=== PATIENT | female | born 1960 | race Caucasian/White ===

== ENCOUNTER → 2018-03-08 13:00 | Outpatient (CLI) | payer OTHER, SELFPAY ==
[2018-03-08 14:02] LABS: Absolute Lymphocyte Count 2.14 X10^3/ul (0.83-4.51); Absolute Neutrophil Count 4.9 X10^3/uL (2.0-7.7); Basophil# 0.02 X10^3/uL; Basophil% 0.3 % (0-1); Eosinophil# 0.12 X10^3/uL; Eosinophils% 1.5 % (0-5); Hematocrit 40.1 % (37-47); Hemoglobin 13.6 g/dl (12.0-15.0); Lymphocyte # 2.14 X10^3/ul (4.0); Lymphocyte % 27.5 % (19-41); Mean Corp Hgb Conc 33.9 g/gl (32-36); Mean Corpuscular Hgb 33.4 pg (27.0-32.0); Mean Corpuscular Volume 98.5 fL (81-99); Mean Platelet Vol. 13.4 fl (6.2-12.0); Monocyte# 0.63 X10^3/uL; Monocyte% 8.1 % (0-10); Neutrophil # 4.85 X10^3/uL (2.7-7.7); Neutrophil % 62.5 % (47-70); Platelet Count 187 K/mm3 (150-450); RBC Distribution Width CV 13.1 % (11.6-14.6); RBC Distribution Width SD 46.7 fl (35.1-43.9); Red Blood Count 4.07 M/mm3 (4.2-5.4); White Blood Count 7.8 K/mm3 (4.4-11.0)
[2018-03-08 14:08] LABS: POSITIVE COUNT NO; POSITIVE DIFFERENTIAL NO; POSITIVE MORPHOLOGY NO
[2018-03-08 14:33] LABS: AST(SGOT) 25 U/L (15-37); Alanine Aminotransfer ALT/SGPT 36 U/L (13-56); Albumin, Serum 3.8 g/dL (3.2-5.0); Alkaline Phosphatase 83 U/L (45-117); Anion Gap 6 (5-15); BUN 15 mg/dL (7-18); BUN/Creat Ratio 20.6 RATIO (10-20); Chloride 106 mmol/L (98-107); Creatinine, Serum 0.73 mg/dL (0.55-1.02); EST Glomerular Filtration Rate 87 mL/min (>60); Est Glom Filt Rate - Afr Amer 106 mL/min (>60); Globulin 3.9 g/dL (2.2-4.2); Glucose 92 mg/dL (74-106); Potassium 3.7 mmol/L (3.5-5.1); Protein, Total 7.7 g/dL (6.4-8.2); Sodium Level 138 mmol/L (136-145)
== END ==
PROVIDERS: Family Provider Family Medicine; PCP Family Medicine; Visit Provider Internal Medicine Rheumatology
DX: M06.4 Inflammatory polyarthropathy (principal); M32.9 Systemic lupus erythematosus, unspecified; M47.897 Other spondylosis, lumbosacral region; R76.8 Other specified abnormal immunological findings in serum
CPT/HCPCS: 36415; 80053; 85025

== ENCOUNTER → 2018-09-12 13:47 | Outpatient (CLI) | payer OTHER, SELFPAY ==
[2018-09-12 15:52] LABS: Absolute Lymphocyte Count 1.81 X10^3/ul (0.83-4.51); Absolute Neutrophil Count 4.9 X10^3/uL (2.0-7.7); Basophil# 0.01 X10^3/uL; Basophil% 0.1 % (0-1); Eosinophil# 0.07 X10^3/uL; Hematocrit 40.5 % (37-47); Hemoglobin 13.3 g/dl (12.0-15.0); Lymphocyte # 1.81 X10^3/ul (4.0); Lymphocyte % 24.9 % (19-41); Mean Corp Hgb Conc 32.8 g/gl (32-36); Mean Corpuscular Hgb 32.5 pg (27.0-32.0); Mean Platelet Vol. 14.3 fl (6.2-12.0); Monocyte# 0.47 X10^3/uL; Monocyte% 6.5 % (0-10); Neutrophil # 4.89 X10^3/uL (2.7-7.7); Neutrophil % 67.4 % (47-70); Platelet Count 173 K/mm3 (150-450); RBC Distribution Width CV 13.5 % (11.6-14.6); RBC Distribution Width SD 49.2 fl (35.1-43.9); Red Blood Count 4.09 M/mm3 (4.2-5.4); White Blood Count 7.3 K/mm3 (4.4-11.0)
[2018-09-12 15:53] LABS: Color, Urine Yellow (Yellow); Glucose, Dipstick Normal (Normal); Ketone-Dipstick Negative (Negative); Leukocyte Esterase-Dipstick 25 /ul (Negative); Nitrite-Dipstick Negative (Negative); Occult Blood-Urine Negative /ul (Negative); Protein-Dipstick Negative (Negative); Urine Bilirubin Dipstick Negative (Negative); Urine Clarity Clear (Clear); Urine Urobilinogen Normal (Normal)
[2018-09-12 16:05] LABS: ALB/GLOB Ratio 1.1 RATIO (0.9-2.4); AST(SGOT) 25 U/L (15-37); Alanine Aminotransfer ALT/SGPT 38 U/L (13-56); Alkaline Phosphatase 78 U/L (45-117); Anion Gap 8 (5-15); BUN 14 mg/dL (7-18); BUN/Creat Ratio 19.2 RATIO (10-20); Calcium,Total 8.9 mg/dL (8.5-10.1); Chloride 107 mmol/L (98-107); Creatinine, Serum 0.73 mg/dL (0.55-1.02); EST Glomerular Filtration Rate 87 mL/min (>60); Est Glom Filt Rate - Afr Amer 105 mL/min (>60); Globulin 3.6 g/dL (2.2-4.2); Glucose 89 mg/dL (74-106); POSITIVE COUNT NO; POSITIVE DIFFERENTIAL NO; POSITIVE MORPHOLOGY NO; Protein, Total 7.6 g/dL (6.4-8.2); Sodium Level 140 mmol/L (136-145)
[2018-09-12 16:11] LABS: Protein, Urine (Random) 9.7 mg/dL (<11.9); Protein:Creat Ratio 162 mg/g CRE (0-200)
[2018-09-16 11:54] LABS: Complement C3 122 mg/dL (82-167)
[2018-09-16 15:47] LABS: Anti-dsDNA Ab 1 IU/mL (0-9)
== END ==
PROVIDERS: Family Provider Family Medicine; PCP Family Medicine; Referring Provider Internal Medicine Rheumatology; Visit Provider Internal Medicine Rheumatology
DX: M06.4 Inflammatory polyarthropathy (principal); M32.9 Systemic lupus erythematosus, unspecified; M47.897 Other spondylosis, lumbosacral region; R76.8 Other specified abnormal immunological findings in serum
CPT/HCPCS: 36415; 80053; 81002; 82570; 84156; 85025; 86160; 86225

== ENCOUNTER → 2019-03-11 13:09 | Outpatient (CLI) | payer OTHER, SELFPAY ==
[2018-10-15 13:26] VITALS: BMI 23.8
[2019-03-11 15:16] LABS: Absolute Lymphocyte Count 1.75 X10^3/ul (0.83-4.51); Absolute Neutrophil Count 4.2 X10^3/uL (2.0-7.7); Basophil# 0.01 X10^3/uL; Basophil% 0.2 % (0-1); Eosinophil# 0.08 X10^3/uL; Eosinophils% 1.2 % (0-5); Hematocrit 39.9 % (37-47); Hemoglobin 13.5 g/dl (12.0-15.0); Lymphocyte # 1.75 X10^3/ul (4.0); Lymphocyte % 27.3 % (19-41); Mean Corp Hgb Conc 33.8 g/gl (32-36); Mean Corpuscular Hgb 33.1 pg (27.0-32.0); Mean Corpuscular Volume 97.8 fL (81-99); Mean Platelet Vol. 13.9 fl (6.2-12.0); Monocyte# 0.35 X10^3/uL; Monocyte% 5.5 % (0-10); Neutrophil # 4.22 X10^3/uL (2.7-7.7); Neutrophil % 65.6 % (47-70); Platelet Count 143 K/mm3 (150-450); RBC Distribution Width CV 13.4 % (11.6-14.6); Red Blood Count 4.08 M/mm3 (4.2-5.4); White Blood Count 6.4 K/mm3 (4.4-11.0)
[2019-03-11 15:18] LABS: POSITIVE COUNT NO; POSITIVE DIFFERENTIAL NO; POSITIVE MORPHOLOGY NO
[2019-03-11 15:51] LABS: ALB/GLOB Ratio 1.2 RATIO (0.9-2.4); AST(SGOT) 25 U/L (15-37); Alanine Aminotransfer ALT/SGPT 32 U/L (13-56); Albumin, Serum 3.9 g/dL (3.2-5.0); Alkaline Phosphatase 71 U/L (45-117); Anion Gap 7 (5-15); BUN 11 mg/dL (7-18); BUN/Creat Ratio 13.6 RATIO (10-20); Calcium,Total 8.9 mg/dL (8.5-10.1); Chloride 105 mmol/L (98-107); Creatinine, Serum 0.81 mg/dL (0.55-1.02); EST Glomerular Filtration Rate 77 mL/min (>60); Est Glom Filt Rate - Afr Amer 93 mL/min (>60); Globulin 3.2 g/dL (2.2-4.2); Glucose 146 mg/dL (74-106); Potassium 3.7 mmol/L (3.5-5.1); Protein, Total 7.1 g/dL (6.4-8.2); Sodium Level 141 mmol/L (136-145)
== END ==
PROVIDERS: Family Provider Family Medicine; PCP Family Medicine; Referring Provider Internal Medicine Rheumatology; Visit Provider Internal Medicine Rheumatology
DX: M06.4 Inflammatory polyarthropathy (principal); M32.9 Systemic lupus erythematosus, unspecified; M47.897 Other spondylosis, lumbosacral region; R76.8 Other specified abnormal immunological findings in serum
CPT/HCPCS: 36415; 80053; 85025

== ENCOUNTER → 2019-07-11 15:46 | Outpatient (CLI) | payer OTHER, SELFPAY ==
[2018-10-15 13:26] VITALS: BMI 23.8
--- NOTE | 2019-07-11 15:49 | CT_ITS ---
STUDY: LOW DOSE CT LUNG CANCER SCREENING REASON FOR EXAM: Female, 59 years old. Lung cancer screening CT RADIATION DOSAGE (If Supplied By Facility): CTDIvol = ( 1.7 ) mGy, DLP = ( 57.22 ) mGycm TECHNIQUE: No contrast was administered. Low dose technique was utilized (average mAS-38 and kVp 120). 1.25 mm axial source images with a slice interval of 1.25-mm were reconstructed in lung windows. 2.5 mm axial source images with a slice interval of 2.5-mm were reconstructed in lung windows. 5.0 mm axial source images with a slice interval of 5.0-mm were reconstructed in soft tissue windows. Nodule measured using lung windows on PACS and/or independent workstation with automated measurement of minimum and maximum diameter. Nodule measurement reported as average diameter rounded to the nearest whole number. Growth is defined as an increase ins size of greater than 1.5 mm. COMPARISON: None. Findings: There are no focal high-risk findings. There are scattered minimal scars/atelectasis. There is moderate emphysema. Mediastinal contents are normal. Cardiac chambers are normal in size and shape. Osseous structures are intact. CT/Low Dose CT Lung Screening IMPRESSION: 1. Category 1 screen. 2. Moderate emphysema. IMPORTANT NOTES FOR USE: ACR Lung-RADS Version 1.0 Assessment Categories Release Date: March 09, 2014 Category: Coded 0-4 bases on nodule(s) with highest degree of suspicion. Negative screen is defined as categories 1 and 2; a positive screen is defined as categories 3 and 4. Category 3 and 4A nodules that are unchanged on interval CT should be coded as category 2, and individuals returned to screening in 12 months. Category 4X: Category 3 or 4 nodules with additional imaging findings that increase the suspicion of lung cancer, such as spiculation, GGN that doubles in size in 1 year, enlarged lymph notes, etc. Category Modifiers: S (significant finding unrelated to lung cancer) and C (prior history of treated lung cancer) may be added to the 0-4 Lung-RADS Electronically Signed: Elizabeth Antoine, at 16:19 EDT Tel , Service support ,
== END ==
PROVIDERS: Family Provider Family Medicine; PCP Family Medicine; Referring Provider Family Medicine; Visit Provider Family Medicine
DX: Z12.2 Encounter for screening for malignant neoplasm of respiratory organs (principal)
CPT/HCPCS: G0297

== ENCOUNTER → 2019-09-10 10:22 | Outpatient (CLI) | payer OTHER, SELFPAY ==
[2018-10-15 13:26] VITALS: BMI 23.8
[2019-09-10 12:29] LABS: Absolute Lymphocyte Count 1.68 X10^3/uL (0.83-4.51); Absolute Neutrophil Count 4.6 X10^3/uL (2.0-7.7); Basophil# 0.02 X10^3/uL; Basophil% 0.3 % (0-1); Eosinophil# 0.07 X10^3/uL; Hematocrit 40.7 % (37-47); Hemoglobin 13.3 g/dL (12.0-15.0); Lymphocyte # 1.68 X10^3/ul (4.0); Lymphocyte % 24.3 % (19-41); Mean Corp Hgb Conc 32.7 g/dL (32-36); Mean Corpuscular Hgb 32.9 pg (27.0-32.0); Mean Corpuscular Volume 100.7 fL (81-99); Mean Platelet Vol. 14.3 fl (6.2-12.0); Monocyte# 0.52 X10^3/uL; Monocyte% 7.5 % (0-10); NRBC Flagged by Analyzer 0 % (0-5); Neutrophil # 4.59 X10^3/uL (2.7-7.7); Neutrophil % 66.5 % (47-70); Platelet Count 169 K/mm3 (150-450); RBC Distribution Width CV 13.2 % (11.6-14.6); RBC Distribution Width SD 49.4 fl (35.1-43.9); Red Blood Count 4.04 M/mm3 (4.2-5.4); White Blood Count 6.9 K/mm3 (4.4-11.0)
[2019-09-10 12:41] LABS: ALB/GLOB Ratio 1.1 RATIO (0.9-2.4); AST(SGOT) 22 U/L (15-37); Alanine Aminotransfer ALT/SGPT 32 U/L (13-56); Albumin, Serum 3.9 g/dL (3.2-5.0); Alkaline Phosphatase 104 U/L (45-117); Anion Gap 5 (5-15); BUN 15 mg/dL (7-18); BUN/Creat Ratio 19.5 RATIO (10-20); Chloride 108 mmol/L (98-107); Color, Urine Yellow (Yellow); Creatinine, Serum 0.77 mg/dL (0.55-1.02); EST Glomerular Filtration Rate 81 mL/min (>60); Est Glom Filt Rate - Afr Amer 98 mL/min (>60); Globulin 3.5 g/dL (2.2-4.2); Glucose 108 mg/dL (74-106); Glucose, Dipstick Normal (Normal); Ketone-Dipstick Negative (Negative); Leukocyte Esterase-Dipstick Negative /ul (Negative); Nitrite-Dipstick Negative (Negative); Occult Blood-Urine Negative /ul (Negative); Protein, Total 7.4 g/dL (6.4-8.2); Protein-Dipstick Negative (Negative); Sodium Level 141 mmol/L (136-145); Specific Gravity, Urine 1.015 (1.002-1.030); Urine Bilirubin Dipstick Negative (Negative); Urine Clarity Sl. Cloudy (Clear); Urine Urobilinogen Normal (Normal)
[2019-09-10 12:57] LABS: Protein:Creat Ratio 293 mg/g CRE (0-200)
[2019-09-10 13:18] LABS: Platelet Morphology LARGE
[2019-09-11 15:26] LABS: Complement C3 100 mg/dL (82-167)
[2019-09-11 21:25] LABS: Anti-dsDNA Ab <1 IU/mL (0-9)
== END ==
PROVIDERS: Family Provider Family Medicine; PCP Family Medicine; Referring Provider Internal Medicine Rheumatology; Visit Provider Internal Medicine Rheumatology
DX: M06.4 Inflammatory polyarthropathy (principal); M32.9 Systemic lupus erythematosus, unspecified; M18.0 Bilateral primary osteoarthritis of first carpometacarpal joints; M47.897 Other spondylosis, lumbosacral region; R76.8 Other specified abnormal immunological findings in serum
CPT/HCPCS: 36415; 80053; 81002; 82570; 84156; 85025; 86160; 86225

== ENCOUNTER → 2019-10-07 08:08 | Outpatient (CLI) | payer OTHER, SELFPAY ==
[2018-10-15 13:26] VITALS: BMI 23.8
--- NOTE | 2019-10-07 08:12 | RAD_ITS ---
STUDY: X-RAY - CERVICAL SPINE REASON FOR EXAM: Female, 59 years old. TECHNIQUE: 6 view(s) of the cervical spine were obtained. COMPARISON: None FINDINGS: Normal anterior atlantoaxial articulation. Normal odontoid process. Normal cervical lordosis. Normal vertebral bodies and endplates. There is marked narrowing involving the intervertebral disc between C5-6 and to a less extent the colon between C6-7. Significant spondylotic changes noted at C5-C6 with encroachment upon the neural foramina bilaterally this is also present at C6-7 but to a less extent. The soft tissue structures are unremarkable. The air column is patent. RAD/Cerv Spine 4 or 5 Views IMPRESSION: Degenerative disc disease narrowing and spondylotic changes at C5-6 and C6-7 as described Electronically Signed: Carol Ann Schmitt, at 16:19 EST Tel , Service support ,
[2019-10-07 10:44] LABS: Cholesterol 150 mg/dL (200); High Density Lipoprotein 76 mg/dL; Triglycerides 31 mg/dL; Very Low Density Lipoprotein 6 mg/dL (5-40)
== END ==
PROVIDERS: Family Provider Family Medicine; PCP Family Medicine; Referring Provider Family Medicine; Visit Provider Family Medicine
DX: Z00.01 Encounter for general adult medical examination with abnormal findings (principal); M47.812 Spondylosis without myelopathy or radiculopathy, cervical region; M32.9 Systemic lupus erythematosus, unspecified
CPT/HCPCS: 36415; 72050; 80061

== ENCOUNTER → 2019-10-07 08:25 | Outpatient (CLI) | payer OTHER, SELFPAY ==
[2018-10-15 13:26] VITALS: BMI 23.8
== END ==
PROVIDERS: Family Provider Family Medicine; PCP Family Medicine; Referring Provider Family Medicine; Visit Provider Family Medicine
DX: M47.812 Spondylosis without myelopathy or radiculopathy, cervical region (principal); M32.9 Systemic lupus erythematosus, unspecified
CPT/HCPCS: 72050

== ENCOUNTER → 2020-03-09 15:30 | Outpatient (CLI) | payer OTHER, SELFPAY ==
[2018-10-15 13:26] VITALS: BMI 23.8
[2020-03-09 17:35] LABS: Absolute Lymphocyte Count 2.68 X10^3/uL (0.83-4.51); Absolute Neutrophil Count 4.6 X10^3/uL (2.0-7.7); Basophil# 0.03 X10^3/uL; Basophil% 0.4 % (0-1); Eosinophils% 1.2 % (0-5); Hematocrit 39.5 % (37-47); Hemoglobin 13.1 g/dL (12.0-15.0); Lymphocyte # 2.68 X10^3/ul (4.0); Mean Corp Hgb Conc 33.2 g/dL (32-36); Mean Corpuscular Hgb 32.9 pg (27.0-32.0); Mean Corpuscular Volume 99.2 fL (81-99); Mean Platelet Vol. 14.6 fl (6.2-12.0); Monocyte# 0.66 X10^3/uL; Monocyte% 8.1 % (0-10); NRBC Flagged by Analyzer 0 % (0-5); Neutrophil # 4.64 X10^3/uL (2.7-7.7); Neutrophil % 57.1 % (47-70); Platelet Count 177 K/mm3 (150-450); RBC Distribution Width CV 12.8 % (11.6-14.6); RBC Distribution Width SD 46.5 fl (35.1-43.9); Red Blood Count 3.98 M/mm3 (4.2-5.4); White Blood Count 8.1 K/mm3 (4.4-11.0)
[2020-03-09 18:00] LABS: Color, Urine Yellow (Yellow); Glucose, Dipstick Normal (Normal); Ketone-Dipstick Negative (Negative); Leukocyte Esterase-Dipstick 25 /ul (Negative); Nitrite-Dipstick Negative (Negative); Occult Blood-Urine Negative /ul (Negative); Protein-Dipstick Negative (Negative); Specific Gravity, Urine 1.025 (1.002-1.030); Urine Bilirubin Dipstick Negative (Negative); Urine Clarity Clear (Clear); Urine Urobilinogen Normal (Normal)
[2020-03-09 18:09] LABS: Protein, Urine (Random) 20.9 mg/dL (<11.9); Protein:Creat Ratio 163 mg/g CRE (0-200)
[2020-03-09 18:12] LABS: ALB/GLOB Ratio 1.1 RATIO (0.9-2.4); AST(SGOT) 26 U/L (15-37); Alanine Aminotransfer ALT/SGPT 33 U/L (13-56); Alkaline Phosphatase 76 U/L (45-117); Anion Gap 4 (5-15); BUN 18 mg/dL (7-18); BUN/Creat Ratio 20.6 RATIO (10-20); Calcium,Total 9.2 mg/dL (8.5-10.1); Chloride 108 mmol/L (98-107); Creatinine, Serum 0.87 mg/dL (0.55-1.02); EST Glomerular Filtration Rate 70 mL/min (>60); Est Glom Filt Rate - Afr Amer 85 mL/min (>60); Globulin 3.5 g/dL (2.2-4.2); Glucose 82 mg/dL (74-106); Potassium 3.8 mmol/L (3.5-5.1); Protein, Total 7.5 g/dL (6.4-8.2); Sodium Level 139 mmol/L (136-145)
[2020-03-11 05:57] LABS: Complement C3 109 mg/dL (82-167)
[2020-03-11 17:02] LABS: Anti-dsDNA Ab <1 IU/mL (0-9)
== END ==
PROVIDERS: PCP Family Medicine; Referring Provider Internal Medicine Rheumatology; Visit Provider Internal Medicine Rheumatology
DX: M06.4 Inflammatory polyarthropathy (principal); M32.9 Systemic lupus erythematosus, unspecified; R76.8 Other specified abnormal immunological findings in serum; M18.0 Bilateral primary osteoarthritis of first carpometacarpal joints; M47.897 Other spondylosis, lumbosacral region
CPT/HCPCS: 36415; 80053; 81002; 82570; 84156; 85025; 86160; 86225

== ENCOUNTER → 2020-07-09 13:56 | Outpatient (CLI) | payer OTHER, SELFPAY ==
[2018-10-15 13:26] VITALS: BMI 23.8
--- NOTE | 2020-07-09 14:00 | CT_ITS ---
STUDY: LOW DOSE CT LUNG CANCER SCREENING REASON FOR EXAM: Female, 60 years old. Tobacco use, smoked 1 pack/day x 35 years, lupus, 125lbs. RADIATION DOSAGE (If Supplied By Facility): CTDIvol = ( 2.01 ) mGy, DLP = ( 74.74 ) mGycm TECHNIQUE: No contrast was administered. Low dose technique was utilized (average mAS-38 and kVp 120). 1.25 mm axial source images with a slice interval of 1.25-mm were reconstructed in lung windows. 2.5 mm axial source images with a slice interval of 2.5-mm were reconstructed in lung windows. 5.0 mm axial source images with a slice interval of 5.0-mm were reconstructed in soft tissue windows. Nodule measured using lung windows on PACS and/or independent workstation with automated measurement of minimum and maximum diameter. Nodule measurement reported as average diameter rounded to the nearest whole number. Growth is defined as an increase ins size of greater than 1.5 mm. COMPARISON: Comparison is made with prior examination dated 07/11/2019. NODULES: No suspicious nodules seen. Emphysema: No evidence of emphysema. Endobronchial lesion: None Aorta: Unremarkable Coronary arteries: Unremarkable Mediastinal nodes: No significant nodes are seen. Other chest and abdominal findings: CT/Low Dose CT Lung Screening IMPRESSION: Lung-RADS category 2 - Continue annual screening with LDCT in 12 months. IMPORTANT NOTES FOR USE: ACR Lung-RADS Version 1.0 Assessment Categories Release Date: March 09, 2014 Category: Coded 0-4 bases on nodule(s) with highest degree of suspicion. Negative screen is defined as categories 1 and 2; a positive screen is defined as categories 3 and 4. Category 3 and 4A nodules that are unchanged on interval CT should be coded as category 2, and individuals returned to screening in 12 months. Category 4X: Category 3 or 4 nodules with additional imaging findings that increase the suspicion of lung cancer, such as spiculation, GGN that doubles in size in 1 year, enlarged lymph notes, etc. Category Modifiers: S (significant finding unrelated to lung cancer) and C (prior history of treated lung cancer) may be added to the 0-4 Lung-RADS Electronically Signed: Jair Santacruz, at 15:20 EDT , Service support ,
== END ==
PROVIDERS: PCP Family Medicine; Referring Provider Family Medicine; Visit Provider Family Medicine
DX: Z12.2 Encounter for screening for malignant neoplasm of respiratory organs (principal); F17.210 Nicotine dependence, cigarettes, uncomplicated
CPT/HCPCS: G0297

== ENCOUNTER → 2020-08-31 16:47 | Outpatient (CLI) | payer OTHER, SELFPAY ==
[2018-10-15 13:26] VITALS: BMI 23.8
[2020-08-31 17:49] LABS: Absolute Lymphocyte Count 2.55 X10^3/uL (0.83-4.51); Basophil# 0.04 X10^3/uL; Basophil% 0.5 % (0-1); Eosinophil# 0.12 X10^3/uL; Eosinophils% 1.4 % (0-5); Hematocrit 40.5 % (37-47); Hemoglobin 13.3 g/dL (12.0-15.0); Lymphocyte # 2.55 X10^3/ul (4.0); Lymphocyte % 30.6 % (19-41); Mean Corp Hgb Conc 32.8 g/dL (32-36); Mean Corpuscular Hgb 33.2 pg (27.0-32.0); Mean Platelet Vol. 13.8 fl (6.2-12.0); Monocyte# 0.63 X10^3/uL; Monocyte% 7.6 % (0-10); NRBC Flagged by Analyzer 0 % (0-5); Neutrophil # 4.96 X10^3/uL (2.7-7.7); Neutrophil % 59.5 % (47-70); Platelet Count 167 K/mm3 (150-450); RBC Distribution Width CV 13.1 % (11.6-14.6); RBC Distribution Width SD 48.7 fl (35.1-43.9); Red Blood Count 4.01 M/mm3 (4.2-5.4); White Blood Count 8.3 K/mm3 (4.4-11.0)
[2020-08-31 18:20] LABS: ALB/GLOB Ratio 1.1 RATIO (0.9-2.4); AST(SGOT) 23 U/L (15-37); Alanine Aminotransfer ALT/SGPT 28 U/L (13-56); Albumin, Serum 3.9 g/dL (3.2-5.0); Alkaline Phosphatase 82 U/L (45-117); Anion Gap 4 (5-15); BUN 14 mg/dL (7-18); BUN/Creat Ratio 17.2 RATIO (10-20); Calcium,Total 9.2 mg/dL (8.5-10.1); Chloride 109 mmol/L (98-107); Creatinine, Serum 0.81 mg/dL (0.55-1.02); EST Glomerular Filtration Rate 76 mL/min (>60); Est Glom Filt Rate - Afr Amer 92 mL/min (>60); Globulin 3.7 g/dL (2.2-4.2); Glucose 79 mg/dL (74-106); Potassium 3.8 mmol/L (3.5-5.1); Protein, Total 7.6 g/dL (6.4-8.2); Sodium Level 141 mmol/L (136-145)
== END ==
PROVIDERS: PCP Family Medicine; Referring Provider Internal Medicine Rheumatology; Visit Provider Internal Medicine Rheumatology
DX: M06.4 Inflammatory polyarthropathy (principal); M32.9 Systemic lupus erythematosus, unspecified; R76.8 Other specified abnormal immunological findings in serum; M79.7 Fibromyalgia; M18.0 Bilateral primary osteoarthritis of first carpometacarpal joints; M47.897 Other spondylosis, lumbosacral region
CPT/HCPCS: 36415; 80053; 85025

== ENCOUNTER → 2021-02-24 17:55 | Outpatient (CLI) | payer OTHER, SELFPAY ==
[2021-02-24 16:58] VITALS: BMI 23.9
[2021-02-24 19:25] LABS: Probe Check PASS; Specimen Processing Control PASS
== END ==
PROVIDERS: PCP Family Medicine; Visit Provider Physician Assistant
DX: J06.9 Acute upper respiratory infection, unspecified (principal)
CPT/HCPCS: 87635; U0002

== ENCOUNTER → 2021-03-04 08:15 | Outpatient (CLI) | payer OTHER, SELFPAY ==
[2021-02-24 16:58] VITALS: BMI 23.9
[2021-03-04 10:26] LABS: Absolute Lymphocyte Count 1.49 X10^3/uL (0.83-4.51); Absolute Neutrophil Count 11.3 X10^3/uL (2.0-7.7); Basophil# 0.04 X10^3/uL; Basophil% 0.3 % (0-1); Eosinophil# 0.19 X10^3/uL; Eosinophils% 1.4 % (0-5); Hematocrit 41.9 % (37-47); Hemoglobin 13.8 g/dL (12.0-15.0); Lymphocyte # 1.49 X10^3/ul (0.83-4.51); Lymphocyte % 10.8 % (19-41); Mean Corp Hgb Conc 32.9 g/dL (32-36); Mean Corpuscular Hgb 33.4 pg (27.0-32.0); Mean Corpuscular Volume 101.5 fL (81-99); Mean Platelet Vol. 13.2 fl (6.2-12.0); Monocyte# 0.76 X10^3/uL; Monocyte% 5.5 % (0-10); NRBC Flagged by Analyzer 0 % (0-5); Neutrophil # 11.25 X10^3/uL (2.7-7.7); Neutrophil % 81.6 % (47-70); Platelet Count 206 K/mm3 (150-450); RBC Distribution Width CV 12.7 % (11.6-14.6); RBC Distribution Width SD 47.6 fl (35.1-43.9); Red Blood Count 4.13 M/mm3 (4.2-5.4); White Blood Count 13.8 K/mm3 (4.4-11.0)
[2021-03-04 10:30] LABS: Color, Urine Yellow (Yellow); Glucose, Dipstick Normal (Normal); Ketone-Dipstick 5 mg/dl (Negative); Leukocyte Esterase-Dipstick Negative /ul (Negative); Nitrite-Dipstick Negative (Negative); Occult Blood-Urine Negative /ul (Negative); Protein-Dipstick 15 mg/dl (Negative); Specific Gravity, Urine 1.025 (1.002-1.030); Urine Bilirubin Dipstick Negative (Negative); Urine Clarity Sl. Cloudy (Clear); Urine Urobilinogen Normal (Normal)
[2021-03-04 10:33] LABS: Protein, Urine (Random) 46.1 mg/dL (<11.9); Protein:Creat Ratio 274 mg/g CRE (0-200)
[2021-03-04 10:35] LABS: AST(SGOT) 21 U/L (15-37); Alanine Aminotransfer ALT/SGPT 36 U/L (13-56); Albumin, Serum 3.6 g/dL (3.2-5.0); Alkaline Phosphatase 111 U/L (45-117); Anion Gap 4 (5-15); BUN 16 mg/dL (7-18); BUN/Creat Ratio 20.6 RATIO (10-20); Calcium,Total 8.7 mg/dL (8.5-10.1); Chloride 109 mmol/L (98-107); Creatinine, Serum 0.78 mg/dL (0.55-1.02); EST Glomerular Filtration Rate 80 mL/min (>60); Est Glom Filt Rate - Afr Amer 97 mL/min (>60); Globulin 3.5 g/dL (2.2-4.2); Glucose 122 mg/dL (74-106); Protein, Total 7.1 g/dL (6.4-8.2); Sodium Level 141 mmol/L (136-145)
== END ==
PROVIDERS: PCP Family Medicine; Referring Provider Internal Medicine Rheumatology; Visit Provider Internal Medicine Rheumatology
DX: M06.4 Inflammatory polyarthropathy (principal); M32.9 Systemic lupus erythematosus, unspecified; R76.8 Other specified abnormal immunological findings in serum; M79.7 Fibromyalgia; M18.0 Bilateral primary osteoarthritis of first carpometacarpal joints; M47.897 Other spondylosis, lumbosacral region
CPT/HCPCS: 36415; 80053; 81002; 82570; 84156; 85025

== ENCOUNTER → 2021-08-03 15:50 | Outpatient (CLI) | payer OTHER, SELFPAY ==
--- NOTE | 2021-08-03 15:54 | CT_ITS ---
STUDY: LOW DOSE CT LUNG CANCER SCREENING REASON FOR EXAM: Female, 61 years old. Screening. RADIATION DOSAGE (If Supplied By Facility): CTDIvol = ( 2.01 ) mGy, DLP = ( 63.94 ) mGycm TECHNIQUE: No contrast was administered. Low dose technique was utilized (average mAS-38 and kVp 120). 1.25 mm axial source images with a slice interval of 1.25-mm were reconstructed in lung windows. 2.5 mm axial source images with a slice interval of 2.5-mm were reconstructed in lung windows. 5.0 mm axial source images with a slice interval of 5.0-mm were reconstructed in soft tissue windows. Nodule measured using lung windows on PACS and/or independent workstation with automated measurement of minimum and maximum diameter. Nodule measurement reported as average diameter rounded to the nearest whole number. Growth is defined as an increase ins size of greater than 1.5 mm. COMPARISON: 07/09/2020. NODULES: Nodule #: 1 Density: Solid Lung location: Left upper lobe: 1.7 cm from pleura Location in series: Series Number: 2 Image: 25 Size - D1 x D2 mm: 3 x 3 mm: 3 mm average diameter Margin: Smooth Shape: Round Calcification: Yes Fat: No Temporal comparison: Stable Total lung nodules (excluding granulomas): 0 Emphysema: There is mild emphysematous changes with scattered air cysts versus bullae. Endobronchial lesion: None Aorta: Mild stable atherosclerotic changes of the aortic arch. There is no aneurysm. Coronary arteries: Normal Heart: Normal Pulmonary artery: Normal Mediastinal nodes: None Other chest and abdominal findings: Stable degenerative changes of the thoracic spine. CT/Low Dose CT Lung Screening IMPRESSION: Lung-RADS category 1 - Continue annual screening with LDCT in 12 months. IMPORTANT NOTES FOR USE: ACR Lung-RADS Version 1.1 Assessment Categories Release Date: 2018 Category: Coded 0-4 bases on nodule(s) with highest degree of suspicion. Negative screen is defined as categories 1 and 2; a positive screen is defined as categories 3 and 4. Category 3 and 4A nodules that are unchanged on interval CT should be coded as category 2, and individuals returned to screening in 12 months. Category 4X: Category 3 or 4 nodules with additional imaging findings that increase the suspicion of lung cancer, such as spiculation, GGN that doubles in size in 1 year, enlarged lymph notes, etc. Category Modifiers: S (significant finding unrelated to lung cancer) Electronically Signed: Deep Bull DO at 16:56 EDT Tel [phone], Service support ,
== END ==
PROVIDERS: PCP Family Medicine; Referring Provider Family Medicine; Visit Provider Family Medicine
DX: Z12.2 Encounter for screening for malignant neoplasm of respiratory organs (principal)
CPT/HCPCS: 71271

== ENCOUNTER → 2021-08-26 14:26 | Outpatient (CLI) | payer OTHER, SELFPAY ==
[2021-08-26 17:18] LABS: Color, Urine Yellow (Yellow); Glucose, Dipstick Normal (Normal); Ketone-Dipstick Negative (Negative); Leukocyte Esterase-Dipstick Negative /ul (Negative); Nitrite-Dipstick Negative (Negative); Occult Blood-Urine Negative /ul (Negative); Protein-Dipstick Negative (Negative); Specific Gravity, Urine 1.025 (1.002-1.030); Urine Bilirubin Dipstick Negative (Negative); Urine Clarity Clear (Clear); Urine Urobilinogen Normal (Normal)
[2021-08-26 17:26] LABS: Absolute Lymphocyte Count 2.24 X10^3/uL (0.83-4.51); Basophil# 0.02 X10^3/uL; Basophil% 0.3 % (0-1); Eosinophil# 0.09 X10^3/uL; Eosinophils% 1.1 % (0-5); Hematocrit 40.2 % (37-47); Hemoglobin 13.4 g/dL (12.0-15.0); Lymphocyte # 2.24 X10^3/ul (0.83-4.51); Lymphocyte % 28.2 % (19-41); Mean Corp Hgb Conc 33.3 g/dL (32-36); Mean Corpuscular Hgb 33.3 pg (27.0-32.0); Mean Platelet Vol. 14.4 fl (6.2-12.0); Monocyte# 0.58 X10^3/uL; Monocyte% 7.3 % (0-10); NRBC Flagged by Analyzer 0 % (0-5); Neutrophil # 4.99 X10^3/uL (2.7-7.7); Neutrophil % 62.8 % (47-70); Platelet Count 175 K/mm3 (150-450); RBC Distribution Width SD 48.2 fl (35.1-43.9); Red Blood Count 4.02 M/mm3 (4.2-5.4); White Blood Count 7.9 K/mm3 (4.4-11.0)
[2021-08-26 17:28] LABS: Protein, Urine (Random) 32.2 mg/dL (<11.9); Protein:Creat Ratio 200 mg/g CRE (0-200)
[2021-08-26 17:36] LABS: AST(SGOT) 23 U/L (15-37); Alanine Aminotransfer ALT/SGPT 34 U/L (13-56); Albumin, Serum 3.5 g/dL (3.2-5.0); Alkaline Phosphatase 82 U/L (45-117); Anion Gap 6 (5-15); BUN 19 mg/dL (7-18); BUN/Creat Ratio 22.1 RATIO (10-20); Calcium,Total 8.9 mg/dL (8.5-10.1); Chloride 108 mmol/L (98-107); Creatinine, Serum 0.86 mg/dL (0.55-1.02); EST Glomerular Filtration Rate 71 mL/min (>60); Est Glom Filt Rate - Afr Amer 86 mL/min (>60); Globulin 3.5 g/dL (2.2-4.2); Glucose 104 mg/dL (74-106); Potassium 3.7 mmol/L (3.5-5.1); Sodium Level 142 mmol/L (136-145)
== END ==
PROVIDERS: PCP Family Medicine; Referring Provider Internal Medicine Rheumatology; Visit Provider Internal Medicine Rheumatology
DX: M06.4 Inflammatory polyarthropathy (principal); M32.9 Systemic lupus erythematosus, unspecified; R76.8 Other specified abnormal immunological findings in serum; M79.7 Fibromyalgia; M18.0 Bilateral primary osteoarthritis of first carpometacarpal joints; M47.897 Other spondylosis, lumbosacral region
CPT/HCPCS: 36415; 80053; 81002; 82570; 84156; 85025

== ENCOUNTER → 2022-03-10 | Outpatient (CLI) | payer OTHER, SELFPAY ==
[2022-03-10 15:02] LABS: Absolute Lymphocyte Count 2.09 X10^3/uL (0.83-4.51); Absolute Neutrophil Count 4.9 X10^3/uL (2.0-7.7); Basophil# 0.03 X10^3/uL; Basophil% 0.4 % (0-1); Eosinophil# 0.11 X10^3/uL; Eosinophils% 1.4 % (0-5); Hematocrit 40.4 % (37-47); Hemoglobin 13.6 g/dL (12.0-15.0); Lymphocyte # 2.09 X10^3/ul (0.83-4.51); Lymphocyte % 27.1 % (19-41); Mean Corp Hgb Conc 33.7 g/dL (32-36); Mean Corpuscular Hgb 33.5 pg (27.0-32.0); Mean Corpuscular Volume 99.5 fL (81-99); Mean Platelet Vol. 14.3 fl (6.2-12.0); Monocyte# 0.55 X10^3/uL; Monocyte% 7.1 % (0-10); NRBC Flagged by Analyzer 0 % (0-5); Neutrophil # 4.91 X10^3/uL (2.7-7.7); Neutrophil % 63.7 % (47-70); Platelet Count 170 K/mm3 (150-450); RBC Distribution Width CV 13.2 % (11.6-14.6); RBC Distribution Width SD 49.1 fl (35.1-43.9); Red Blood Count 4.06 M/mm3 (4.2-5.4); White Blood Count 7.7 K/mm3 (4.4-11.0)
[2022-03-10 15:12] LABS: ALB/GLOB Ratio 1.1 RATIO (0.9-2.4); AST(SGOT) 25 U/L (15-37); Alanine Aminotransfer ALT/SGPT 38 U/L (13-56); Albumin, Serum 3.8 g/dL (3.2-5.0); Alkaline Phosphatase 79 U/L (45-117); Anion Gap 6 (5-15); BUN 16 mg/dL (7-18); BUN/Creat Ratio 22.7 RATIO (10-20); Calcium,Total 9.4 mg/dL (8.5-10.1); Chloride 109 mmol/L (98-107); EST Glomerular Filtration Rate 89 mL/min (>60); Est Glom Filt Rate - Afr Amer 108 mL/min (>60); Globulin 3.4 g/dL (2.2-4.2); Glucose 88 mg/dL (74-106); Potassium 4.1 mmol/L (3.5-5.1); Protein, Total 7.2 g/dL (6.4-8.2); Sodium Level 141 mmol/L (136-145)
== END | disposition home or self-care (01) ==
LOC: MTLAB 11:57
PROVIDERS: PCP Family Medicine; Referring Provider Internal Medicine Rheumatology; Visit Provider Internal Medicine Rheumatology
DX: M06.4 Inflammatory polyarthropathy (principal); M32.9 Systemic lupus erythematosus, unspecified; R76.8 Other specified abnormal immunological findings in serum; M79.7 Fibromyalgia; M18.0 Bilateral primary osteoarthritis of first carpometacarpal joints; M47.897 Other spondylosis, lumbosacral region
CPT/HCPCS: 36415; 80053; 85025

== ENCOUNTER → 2022-08-17 | Outpatient (CLI) | payer OTHER, SELFPAY ==
[2022-08-28 14:08] LABS: Age Gdln ACOG Testing 30-65 (.)
[2022-08-29 17:54] LABS: HPV APTIMA, High Risk Negative (Negative); HPV Reflexed? YES, CHARGE PATIENT
== END | disposition home or self-care (01) ==
LOC: LABSPEC 15:31
PROVIDERS: PCP Family Medicine; Visit Provider Family Medicine
DX: Z12.4 Encounter for screening for malignant neoplasm of cervix (principal)
CPT/HCPCS: 87624; 88175; G0145

== ENCOUNTER → 2022-09-07 | Outpatient (CLI) | payer OTHER, SELFPAY ==
[2022-09-07 15:29] LABS: Absolute Lymphocyte Count 1.73 X10^3/uL (0.83-4.51); Basophil# 0.02 X10^3/uL; Basophil% 0.3 % (0-1); Eosinophils% 1.4 % (0-5); Hematocrit 39.2 % (37-47); Hemoglobin 13.5 g/dL (12.0-15.0); Lymphocyte # 1.73 X10^3/ul (0.83-4.51); Lymphocyte % 23.6 % (19-41); Mean Corp Hgb Conc 34.4 g/dL (32-36); Mean Corpuscular Hgb 34.1 pg (27.0-32.0); Mean Platelet Vol. 14.4 fl (6.2-12.0); Monocyte# 0.41 X10^3/uL; Monocyte% 5.6 % (0-10); NRBC Flagged by Analyzer 0 % (0-5); Neutrophil # 5.03 X10^3/uL (2.7-7.7); Neutrophil % 68.7 % (47-70); Platelet Count 166 K/mm3 (150-450); RBC Distribution Width CV 13.1 % (11.6-14.6); RBC Distribution Width SD 47.6 fl (35.1-43.9); Red Blood Count 3.96 M/mm3 (4.2-5.4); White Blood Count 7.3 K/mm3 (4.4-11.0)
[2022-09-07 15:32] LABS: Glucose, Dipstick Normal (Normal); Ketone-Dipstick Negative (Negative); Leukocyte Esterase-Dipstick 25 /ul (Negative); Nitrite-Dipstick Negative (Negative); Occult Blood-Urine Negative /ul (Negative); Protein-Dipstick Negative (Negative); Urine Bilirubin Dipstick Negative (Negative); Urine Urobilinogen Normal (Normal)
[2022-09-07 15:33] LABS: Color, Urine Yellow (Yellow); Urine Clarity Clear (Clear)
[2022-09-07 15:39] LABS: ALB/GLOB Ratio 1.1 RATIO (0.9-2.4); AST(SGOT) 23 U/L (15-37); Alanine Aminotransfer ALT/SGPT 32 U/L (13-56); Albumin, Serum 3.6 g/dL (3.2-5.0); Alkaline Phosphatase 77 U/L (45-117); Anion Gap 5 (5-15); BUN 16 mg/dL (7-18); BUN/Creat Ratio 20.9 RATIO (10-20); Calcium,Total 9.1 mg/dL (8.5-10.1); Chloride 110 mmol/L (98-107); Creatinine, Serum 0.76 mg/dL (0.55-1.02); EST Glomerular Filtration Rate 81 mL/min (>60); Est Glom Filt Rate - Afr Amer 98 mL/min (>60); Globulin 3.4 g/dL (2.2-4.2); Glucose 139 mg/dL (74-106); Potassium 3.8 mmol/L (3.5-5.1); Protein:Creat Ratio 344 mg/g CRE (0-200); Sodium Level 143 mmol/L (136-145)
== END | disposition home or self-care (01) ==
PROVIDERS: PCP Family Medicine; Referring Provider Internal Medicine Rheumatology; Visit Provider Internal Medicine Rheumatology
DX: M06.4 Inflammatory polyarthropathy (principal); M32.9 Systemic lupus erythematosus, unspecified; R76.8 Other specified abnormal immunological findings in serum; M79.7 Fibromyalgia; M18.0 Bilateral primary osteoarthritis of first carpometacarpal joints; M47.897 Other spondylosis, lumbosacral region
CPT/HCPCS: 36415; 80053; 81002; 82570; 84156; 85025

== ENCOUNTER → 2022-09-11 | Outpatient (CLI) | payer OTHER, SELFPAY ==
--- NOTE | 2022-09-11 18:01 | CT_ITS ---
STUDY: LOW DOSE CT LUNG CANCER SCREENING REASON FOR EXAM: Female, 62 years old. Smokes one quarter pack of cigarettes for 30 years. RADIATION DOSAGE (If Supplied By Facility): CTDIvol = ( 2.01 ) mGy, DLP = ( 70.47 ) mGycm TECHNIQUE: No contrast was administered. Low dose technique was utilized (average mAS-38 and kVp 120). 1.25 mm axial source images with a slice interval of 1.25-mm were reconstructed in lung windows. 2.5 mm axial source images with a slice interval of 2.5-mm were reconstructed in lung windows. 5.0 mm axial source images with a slice interval of 5.0-mm were reconstructed in soft tissue windows. COMPARISON: August 03, 2021. NODULES: Nodule #: 1 Density: Solid Lung location: Left upper lobe: 1.5 cm from pleura Location in series: Series Number: 2 Image: 36 Size - D1 x D2 mm: 3 x 3 mm: 3 mm average diameter Margin: Smooth Shape: Rounded Calcification: Yes Fat: No Temporal comparison: Stable Total lung nodules (excluding granulomas): 0 Emphysema: Yes Endobronchial lesion: No Aorta: Mild stable atherosclerotic changes without aneurysm. CORONARY ARTERIES: Coronary artery calcification normal Heart: Normal Pulmonary artery: Normal Mediastinal nodes: Not Other chest and abdominal findings: Degenerative changes of the thoracic spine. CT/Low Dose CT Lung Screening IMPRESSION: Lung-RADS category 1 - Continue annual screening with LDCT in 12 months. IMPORTANT NOTES FOR USE: ACR Lung-RADS Version 1.1 Assessment Categories Release Date: 2018 Category: Coded 0-4 bases on nodule(s) with highest degree of suspicion. Negative screen is defined as categories 1 and 2; a positive screen is defined as categories 3 and 4. Category 3 and 4A nodules that are unchanged on interval CT should be coded as category 2, and individuals returned to screening in 12 months. Category 4X: Category 3 or 4 nodules with additional imaging findings that increase the suspicion of lung cancer, such as spiculation, GGN that doubles in size in 1 year, enlarged lymph notes, etc. Category Modifiers: S (significant finding unrelated to lung cancer) Electronically Signed: Deep Bull DO at 23:19 EDT Reading Location ID and State: [id number] Tel [phone], Service support ,
== END | disposition home or self-care (01) ==
LOC: CT 18:00
PROVIDERS: PCP Family Medicine; Visit Provider Family Medicine
DX: Z12.2 Encounter for screening for malignant neoplasm of respiratory organs (principal); F17.210 Nicotine dependence, cigarettes, uncomplicated
CPT/HCPCS: 71271

== ENCOUNTER → 2023-03-09 | Outpatient (CLI) | payer OTHER, SELFPAY ==
[2023-03-09 15:40] LABS: Absolute Neutrophil Count 4.3 X10^3/uL (2.0-7.7); Basophil# 0.03 X10^3/uL; Basophil% 0.4 % (0-1); Eosinophil# 0.12 X10^3/uL; Eosinophils% 1.7 % (0-5); Hematocrit 41.6 % (37-47); Hemoglobin 13.6 g/dL (12.0-15.0); Lymphocyte % 29.8 % (19-41); Mean Corp Hgb Conc 32.7 g/dL (32-36); Mean Corpuscular Hgb 33.5 pg (27.0-32.0); Mean Corpuscular Volume 102.5 fL (81-99); Mean Platelet Vol. 14.5 fl (6.2-12.0); Monocyte% 7.1 % (0-10); NRBC Flagged by Analyzer 0 % (0-5); Neutrophil # 4.27 X10^3/uL (2.7-7.7); Neutrophil % 60.7 % (47-70); Platelet Count 155 K/mm3 (150-450); RBC Distribution Width CV 13.2 % (11.6-14.6); RBC Distribution Width SD 50.1 fl (35.1-43.9); Red Blood Count 4.06 M/mm3 (4.2-5.4)
[2023-03-09 15:53] LABS: Color, Urine Yellow (Yellow); Glucose, Dipstick Normal (Normal); Ketone-Dipstick Negative (Negative); Leukocyte Esterase-Dipstick 25 /ul (Negative); Nitrite-Dipstick Negative (Negative); Occult Blood-Urine Negative /ul (Negative); Protein-Dipstick Negative (Negative); Specific Gravity, Urine 1.025 (1.002-1.030); Urine Bilirubin Dipstick Negative (Negative); Urine Clarity Clear (Clear); Urine Urobilinogen Normal (Normal)
[2023-03-09 16:02] LABS: ALB/GLOB Ratio 1.3 RATIO (0.9-2.4); AST(SGOT) 29 U/L (15-37); Alanine Aminotransfer ALT/SGPT 37 U/L (13-56); Alkaline Phosphatase 95 U/L (45-117); Anion Gap 2 (5-15); BUN 17 mg/dL (7-18); BUN/Creat Ratio 25.4 RATIO (10-20); Calcium,Total 8.8 mg/dL (8.5-10.1); Chloride 110 mmol/L (98-107); Creatinine, Serum 0.67 mg/dL (0.55-1.02); EST Glomerular Filtration Rate 95 mL/min (>60); Est Glom Filt Rate - Afr Amer 115 mL/min (>60); Globulin 3.1 g/dL (2.2-4.2); Glucose 99 mg/dL (74-106); Protein, Total 7.1 g/dL (6.4-8.2); Sodium Level 139 mmol/L (136-145)
[2023-03-09 16:21] LABS: Protein:Creat Ratio 291 mg/g CRE (0-200)
== END | disposition home or self-care (01) ==
LOC: MTLAB 13:04
PROVIDERS: PCP Family Medicine; Referring Provider Internal Medicine Rheumatology; Visit Provider Internal Medicine Rheumatology
DX: M06.4 Inflammatory polyarthropathy (principal); M32.9 Systemic lupus erythematosus, unspecified; R76.8 Other specified abnormal immunological findings in serum; M79.7 Fibromyalgia; M18.0 Bilateral primary osteoarthritis of first carpometacarpal joints; M47.897 Other spondylosis, lumbosacral region
CPT/HCPCS: 36415; 80053; 81002; 82570; 84156; 85025

== ENCOUNTER → 2023-09-13 | Outpatient (CLI) | payer OTHER, SELFPAY ==
[2023-09-13 12:04] LABS: Color, Urine Yellow (Yellow); Glucose, Dipstick Normal (Normal); Ketone-Dipstick Negative (Negative); Leukocyte Esterase-Dipstick Negative /ul (Negative); Nitrite-Dipstick Negative (Negative); Occult Blood-Urine Negative /ul (Negative); Protein-Dipstick 15 mg/dl (Negative); Urine Bilirubin Dipstick 1 mg/dL (Negative); Urine Clarity Clear (Clear); Urine Urobilinogen Normal (Normal)
[2023-09-13 12:23] LABS: Absolute Lymphocyte Count 2.15 X10^3/uL (0.83-4.51); Basophil# 0.05 X10^3/uL; Basophil% 0.5 % (0-1); Eosinophil# 0.12 X10^3/uL; Eosinophils% 1.2 % (0-5); Hematocrit 42.4 % (37-47); Hemoglobin 13.5 g/dL (12.0-15.0); Lymphocyte # 2.15 X10^3/ul (0.83-4.51); Lymphocyte % 21.5 % (19-41); Mean Corp Hgb Conc 31.8 g/dL (32-36); Mean Corpuscular Hgb 32.2 pg (27.0-32.0); Mean Corpuscular Volume 101.2 fL (81-99); Monocyte# 0.66 X10^3/uL; Monocyte% 6.6 % (0-10); NRBC Flagged by Analyzer 0 % (0-5); Neutrophil # 6.97 X10^3/uL (2.7-7.7); Neutrophil % 69.8 % (47-70); Platelet Count 200 K/mm3 (150-450); RBC Distribution Width CV 13.6 % (11.6-14.6); RBC Distribution Width SD 50.8 fl (35.1-43.9); Red Blood Count 4.19 M/mm3 (4.2-5.4)
[2023-09-13 12:26] LABS: Protein, Urine (Random) 86.6 mg/dL (<11.9); Protein:Creat Ratio 418 mg/g CRE (0-200)
[2023-09-13 12:28] LABS: ALB/GLOB Ratio 0.9 RATIO (0.9-2.4); AST(SGOT) 31 U/L (15-37); Alanine Aminotransfer ALT/SGPT 44 U/L (13-56); Albumin, Serum 3.6 g/dL (3.2-5.0); Alkaline Phosphatase 91 U/L (45-117); Anion Gap 7 (5-15); BUN 14 mg/dL (7-18); BUN/Creat Ratio 18.8 RATIO (10-20); Chloride 106 mmol/L (98-107); Creatinine, Serum 0.74 mg/dL (0.55-1.02); EST Glomerular Filtration Rate 84 mL/min (>60); Est Glom Filt Rate - Afr Amer 101 mL/min (>60); Globulin 3.8 g/dL (2.2-4.2); Glucose 125 mg/dL (74-106); Potassium 3.7 mmol/L (3.5-5.1); Protein, Total 7.4 g/dL (6.4-8.2); Sodium Level 141 mmol/L (136-145)
== END | disposition home or self-care (01) ==
LOC: MTLAB 09:47
PROVIDERS: PCP Family Medicine; Referring Provider Internal Medicine Rheumatology; Visit Provider Internal Medicine Rheumatology
DX: M06.4 Inflammatory polyarthropathy (principal); M32.9 Systemic lupus erythematosus, unspecified
CPT/HCPCS: 36415; 80053; 81002; 82570; 84156; 85025

== ENCOUNTER → 2023-10-12 | Outpatient (CLI) | payer OTHER, SELFPAY ==
[2023-10-12 17:55] LABS: Absolute Lymphocyte Count 2.65 X10^3/uL (0.83-4.51); Absolute Neutrophil Count 5.9 X10^3/uL (2.0-7.7); Basophil# 0.04 X10^3/uL; Basophil% 0.4 % (0-1); Eosinophil# 0.12 X10^3/uL; Eosinophils% 1.3 % (0-5); Hematocrit 41.1 % (37-47); Lymphocyte # 2.65 X10^3/ul (0.83-4.51); Lymphocyte % 28.2 % (19-41); Mean Corp Hgb Conc 31.6 g/dL (32-36); Mean Corpuscular Hgb 32.7 pg (27.0-32.0); Mean Corpuscular Volume 103.5 fL (81-99); Mean Platelet Vol. 13.9 fl (6.2-12.0); Monocyte% 6.4 % (0-10); NRBC Flagged by Analyzer 0 % (0-5); Neutrophil # 5.94 X10^3/uL (2.7-7.7); Neutrophil % 63.3 % (47-70); Platelet Count 276 K/mm3 (150-450); RBC Distribution Width CV 13.8 % (11.6-14.6); RBC Distribution Width SD 53.2 fl (35.1-43.9); Red Blood Count 3.97 M/mm3 (4.2-5.4); White Blood Count 9.4 K/mm3 (4.4-11.0)
[2023-10-12 18:26] LABS: ALB/GLOB Ratio 0.8 RATIO (0.9-2.4); AST(SGOT) 35 U/L (15-37); Alanine Aminotransfer ALT/SGPT 60 U/L (13-56); Albumin, Serum 3.4 g/dL (3.2-5.0); Alkaline Phosphatase 145 U/L (45-117); Anion Gap 5 (5-15); BUN 15 mg/dL (7-18); BUN/Creat Ratio 19.6 RATIO (10-20); Calcium,Total 8.6 mg/dL (8.5-10.1); Chloride 108 mmol/L (98-107); Creatinine, Serum 0.77 mg/dL (0.55-1.02); EST Glomerular Filtration Rate 81 mL/min (>60); Est Glom Filt Rate - Afr Amer 98 mL/min (>60); Globulin 4.2 g/dL (2.2-4.2); Glucose 96 mg/dL (74-106); Potassium 3.9 mmol/L (3.5-5.1); Protein, Total 7.6 g/dL (6.4-8.2); Sodium Level 140 mmol/L (136-145)
[2023-10-12 18:29] LABS: Color, Urine Yellow (Yellow); Glucose, Dipstick Normal (Normal); Ketone-Dipstick Negative (Negative); Leukocyte Esterase-Dipstick Negative /ul (Negative); Nitrite-Dipstick Negative (Negative); Occult Blood-Urine Negative /ul (Negative); Protein-Dipstick Negative (Negative); Specific Gravity, Urine 1.025 (1.002-1.030); Urine Bilirubin Dipstick Negative (Negative); Urine Clarity Clear (Clear); Urine Urobilinogen Normal (Normal)
[2023-10-12 18:30] LABS: Protein, Urine (Random) 38.8 mg/dL (<11.9); Protein:Creat Ratio 294 mg/g CRE (0-200)
[2023-10-14 09:07] LABS: Complement C3 136 mg/dL (82-167)
== END | disposition home or self-care (01) ==
LOC: MTLAB 14:29
PROVIDERS: PCP Family Medicine; Referring Provider Internal Medicine Rheumatology; Visit Provider Internal Medicine Rheumatology
DX: M06.4 Inflammatory polyarthropathy (principal); M32.9 Systemic lupus erythematosus, unspecified; R76.8 Other specified abnormal immunological findings in serum; M79.7 Fibromyalgia; Z79.899 Other long term (current) drug therapy
CPT/HCPCS: 36415; 80053; 81002; 82570; 84156; 85025; 86160

== ENCOUNTER → 2023-10-29 | Outpatient (CLI) | payer OTHER, SELFPAY ==
--- NOTE | 2023-10-29 16:59 | CT_ITS ---
EXAM: CT CHEST, LUNG CANCER SCREENING WITHOUT INTRAVENOUS CONTRAST CLINICAL INDICATION: SCREENING TECHNIQUE: Helically acquired images were obtained of the chest without intravenous contrast using low dose (LDCT) lung cancer screening protocol. This CT exam was performed using one or more of the following dose reduction techniques: automated exposure control, adjustment of the mA and/or kV according to patient size, and/or use of iterative reconstruction technique. COMPARISON: 09/11/2022 FINDINGS: LUNGS AND PLEURAL SPACES: There is a 3 mm nodule abutting the minor fissure in the right middle lobe. This is seen on series 2 image 148. There is a stable calcified nodule in the left upper lobe. No pleural effusion or thickening. No pneumothorax. HEART: Unremarkable. Heart size is normal. No pericardial effusion. No significant coronary artery calcifications. MEDIASTINUM: Unremarkable. No mediastinal or hilar adenopathy. Esophagus is unremarkable. No hiatal hernia. THYROID: Unremarkable. No thyroid lesions. BONES/JOINTS: Unremarkable. No suspicious lytic or blastic abnormality. VASCULATURE: Unremarkable. Thoracic aorta is non-dilated. LYMPH NODES: Unremarkable. No enlarged lymph nodes. CT/Low Dose CT Lung Screening IMPRESSION: Noncalcified nodule in the right middle lobe abutting the minor fissure. There is also a stable calcified nodule in the left upper lobe. Lung-RADS score: 2 - Benign Appearance or Behavior. Recommend continued annual screening with a low-dose CT (LDCT) in 12 months. Electronically Signed: Teodoro Lara MD at 23:49 EST ,
== END | disposition home or self-care (01) ==
PROVIDERS: PCP Family Medicine; Referring Provider Family Medicine; Visit Provider Family Medicine
DX: Z12.2 Encounter for screening for malignant neoplasm of respiratory organs (principal); F17.200 Nicotine dependence, unspecified, uncomplicated
CPT/HCPCS: 71271

== ENCOUNTER → 2024-02-08 | Outpatient (CLI) | payer OTHER, SELFPAY ==
[2024-02-08 15:21] LABS: Absolute Neutrophil Count 5.9 X10^3/uL (2.0-7.7); Basophil# 0.03 X10^3/uL; Basophil% 0.3 % (0-1); Eosinophil# 0.09 X10^3/uL; Hematocrit 40.3 % (37-47); Hemoglobin 13.2 g/dL (12.0-15.0); Lymphocyte % 24.1 % (19-41); Mean Corp Hgb Conc 32.8 g/dL (32-36); Mean Corpuscular Hgb 32.9 pg (27.0-32.0); Mean Corpuscular Volume 100.5 fL (81-99); Monocyte% 5.7 % (0-10); NRBC Flagged by Analyzer 0 % (0-5); Neutrophil # 5.94 X10^3/uL (2.7-7.7); Neutrophil % 68.3 % (47-70); Platelet Count 189 K/mm3 (150-450); RBC Distribution Width CV 13.5 % (11.6-14.6); RBC Distribution Width SD 50.5 fl (35.1-43.9); Red Blood Count 4.01 M/mm3 (4.2-5.4); White Blood Count 8.7 K/mm3 (4.4-11.0)
[2024-02-08 15:25] LABS: Color, Urine Yellow (Yellow); Glucose, Dipstick Normal (Normal); Ketone-Dipstick Negative (Negative); Leukocyte Esterase-Dipstick Negative /ul (Negative); Nitrite-Dipstick Negative (Negative); Occult Blood-Urine 10 /ul (Negative); Protein-Dipstick Negative (Negative); Specific Gravity, Urine 1.025 (1.002-1.030); Urine Bilirubin Dipstick Negative (Negative); Urine Clarity Clear (Clear); Urine Urobilinogen Normal (Normal)
[2024-02-08 15:39] LABS: Protein:Creat Ratio 254 mg/g CRE (0-200)
[2024-02-08 16:12] LABS: AST(SGOT) 29 U/L (15-37); Alanine Aminotransfer ALT/SGPT 28 U/L (13-56); Albumin, Serum 3.6 g/dL (3.2-5.0); Alkaline Phosphatase 80 U/L (45-117); Anion Gap 6 (5-15); BUN 13 mg/dL (7-18); BUN/Creat Ratio 17.4 RATIO (10-20); Calcium,Total 8.9 mg/dL (8.5-10.1); Chloride 109 mmol/L (98-107); Creatinine, Serum 0.75 mg/dL (0.55-1.02); EST Glomerular Filtration Rate 83 mL/min (>60); Est Glom Filt Rate - Afr Amer 100 mL/min (>60); Globulin 3.6 g/dL (2.2-4.2); Glucose 102 mg/dL (74-106); Protein, Total 7.2 g/dL (6.4-8.2); Sodium Level 142 mmol/L (136-145)
[2024-02-10 08:08] LABS: Complement C3 126 mg/dL (82-167)
== END | disposition home or self-care (01) ==
LOC: MTLAB 13:06
PROVIDERS: PCP Family Medicine; Referring Provider Internal Medicine Rheumatology; Visit Provider Internal Medicine Rheumatology
DX: M06.4 Inflammatory polyarthropathy (principal); M32.9 Systemic lupus erythematosus, unspecified; M19.041 Primary osteoarthritis, right hand; M47.897 Other spondylosis, lumbosacral region; B35.4 Tinea corporis; M18.0 Bilateral primary osteoarthritis of first carpometacarpal joints; M79.7 Fibromyalgia; R76.8 Other specified abnormal immunological findings in serum; Z79.899 Other long term (current) drug therapy
CPT/HCPCS: 36415; 80053; 81002; 82570; 84156; 85025; 86160

== ENCOUNTER → 2024-05-05 | Outpatient (CLI) | payer OTHER, SELFPAY ==
[2024-05-05 15:34] LABS: Absolute Lymphocyte Count 1.61 X10^3/uL (0.83-4.51); Absolute Neutrophil Count 5.1 X10^3/uL (2.0-7.7); Basophil# 0.02 X10^3/uL; Basophil% 0.3 % (0-1); Eosinophil# 0.04 X10^3/uL; Eosinophils% 0.5 % (0-5); Hematocrit 38.5 % (37-47); Hemoglobin 12.6 g/dL (12.0-15.0); Lymphocyte # 1.61 X10^3/ul (0.83-4.51); Lymphocyte % 22.1 % (19-41); Mean Corp Hgb Conc 32.7 g/dL (32-36); Mean Corpuscular Hgb 32.5 pg (27.0-32.0); Mean Corpuscular Volume 99.2 fL (81-99); Mean Platelet Vol. 13.8 fl (6.2-12.0); Monocyte# 0.48 X10^3/uL; Monocyte% 6.6 % (0-10); NRBC Flagged by Analyzer 0 % (0-5); Neutrophil # 5.13 X10^3/uL (2.7-7.7); Neutrophil % 70.2 % (47-70); Platelet Count 171 K/mm3 (150-450); RBC Distribution Width CV 13.2 % (11.6-14.6); RBC Distribution Width SD 48.1 fl (35.1-43.9); Red Blood Count 3.88 M/mm3 (4.2-5.4); White Blood Count 7.3 K/mm3 (4.4-11.0)
[2024-05-05 16:48] LABS: Protein:Creat Ratio 331 mg/g CRE (0-200)
[2024-05-05 16:53] LABS: AST(SGOT) 29 U/L (15-37); Alanine Aminotransfer ALT/SGPT 34 U/L (13-56); Albumin, Serum 3.5 g/dL (3.2-5.0); Alkaline Phosphatase 86 U/L (45-117); Anion Gap 6 (5-15); BUN 14 mg/dL (7-18); BUN/Creat Ratio 20.7 RATIO (10-20); Calcium,Total 8.9 mg/dL (8.5-10.1); Chloride 111 mmol/L (98-107); Creatinine, Serum 0.68 mg/dL (0.55-1.02); EST Glomerular Filtration Rate 93 mL/min (>60); Est Glom Filt Rate - Afr Amer 113 mL/min (>60); Globulin 3.4 g/dL (2.2-4.2); Glucose 112 mg/dL (74-106); Potassium 3.6 mmol/L (3.5-5.1); Protein, Total 6.9 g/dL (6.4-8.2); Sodium Level 141 mmol/L (136-145)
[2024-05-05 19:49] LABS: Color, Urine Yellow (Yellow); Glucose, Dipstick Normal (Normal); Ketone-Dipstick Negative (Negative); Leukocyte Esterase-Dipstick 25 /ul (Negative); Nitrite-Dipstick Negative (Negative); Occult Blood-Urine Negative /ul (Negative); Protein-Dipstick Negative (Negative); Urine Bilirubin Dipstick Negative (Negative); Urine Clarity Clear (Clear); Urine Urobilinogen Normal (Normal)
[2024-05-07 07:09] LABS: Complement C3 115 mg/dL (82-167)
== END | disposition home or self-care (01) ==
PROVIDERS: PCP Family Medicine; Referring Provider Internal Medicine Rheumatology; Visit Provider Internal Medicine Rheumatology
DX: M06.4 Inflammatory polyarthropathy (principal); M32.9 Systemic lupus erythematosus, unspecified; R76.8 Other specified abnormal immunological findings in serum; Z79.899 Other long term (current) drug therapy
CPT/HCPCS: 36415; 80053; 81002; 82570; 84156; 85025; 86160

== ENCOUNTER → 2024-10-24 | Outpatient (CLI) | payer OTHER, SELFPAY ==
[2024-10-24 15:08] LABS: Color, Urine Yellow (Yellow); Glucose, Dipstick Normal (Normal); Ketone-Dipstick Negative (Negative); Leukocyte Esterase-Dipstick 25 /ul (Negative); Nitrite-Dipstick Negative (Negative); Occult Blood-Urine 10 /ul (Negative); Protein-Dipstick 15 mg/dl (Negative); Specific Gravity, Urine 1.025 (1.002-1.030); Urine Bilirubin Dipstick Negative (Negative); Urine Clarity Sl. Cloudy (Clear); Urine Urobilinogen Normal (Normal)
[2024-10-24 15:17] LABS: Absolute Lymphocyte Count 2.29 X10^3/uL (0.83-4.51); Absolute Neutrophil Count 4.4 X10^3/uL (2.0-7.7); Basophil# 0.03 X10^3/uL; Basophil% 0.4 % (0-1); Eosinophil# 0.08 X10^3/uL; Eosinophils% 1.1 % (0-5); Hematocrit 39.3 % (37-47); Hemoglobin 13.3 g/dL (12.0-15.0); Lymphocyte # 2.29 X10^3/ul (0.83-4.51); Lymphocyte % 31.2 % (19-41); Mean Corp Hgb Conc 33.8 g/dL (32-36); Mean Corpuscular Hgb 33.3 pg (27.0-32.0); Mean Corpuscular Volume 98.5 fL (81-99); Monocyte# 0.52 X10^3/uL; Monocyte% 7.1 % (0-10); NRBC Flagged by Analyzer 0 % (0-5); Neutrophil # 4.41 X10^3/uL (2.7-7.7); Neutrophil % 59.9 % (47-70); Platelet Count 171 K/mm3 (150-450); RBC Distribution Width CV 12.9 % (11.6-14.6); RBC Distribution Width SD 46.2 fl (35.1-43.9); Red Blood Count 3.99 M/mm3 (4.2-5.4); White Blood Count 7.4 K/mm3 (4.4-11.0)
[2024-10-24 15:28] LABS: Protein, Urine (Random) 33.8 mg/dL (<11.9); Protein:Creat Ratio 225 mg/g CRE (0-200)
[2024-10-24 18:05] LABS: ALB/GLOB Ratio 1.2 RATIO (0.9-2.4); AST(SGOT) 28 U/L (15-37); Alanine Aminotransfer ALT/SGPT 33 U/L (13-56); Albumin, Serum 3.9 g/dL (3.2-5.0); Alkaline Phosphatase 72 U/L (45-117); Anion Gap 5 (5-15); BUN 17 mg/dL (7-18); BUN/Creat Ratio 22.5 RATIO (10-20); Calcium,Total 9.2 mg/dL (8.5-10.1); Chloride 107 mmol/L (98-107); Creatinine, Serum 0.75 mg/dL (0.55-1.02); EST Glomerular Filtration Rate 82 mL/min (>60); Est Glom Filt Rate - Afr Amer 99 mL/min (>60); Globulin 3.3 g/dL (2.2-4.2); Glucose 93 mg/dL (74-106); Potassium 3.5 mmol/L (3.5-5.1); Protein, Total 7.2 g/dL (6.4-8.2); Sodium Level 138 mmol/L (136-145)
[2024-10-28 08:09] LABS: Complement C3 133 mg/dL (82-167)
== END | disposition home or self-care (01) ==
LOC: MTLAB 13:47
PROVIDERS: PCP Family Medicine; Referring Provider Internal Medicine Rheumatology; Visit Provider Internal Medicine Rheumatology
DX: M06.4 Inflammatory polyarthropathy (principal); M32.9 Systemic lupus erythematosus, unspecified; Z79.899 Other long term (current) drug therapy; R76.8 Other specified abnormal immunological findings in serum; M79.7 Fibromyalgia
CPT/HCPCS: 36415; 80053; 81002; 82570; 84156; 85025; 86160

== ENCOUNTER → 2024-12-11 | Outpatient (CLI) | payer OTHER, SELFPAY ==
--- NOTE | 2024-12-11 15:56 | CT_ITS ---
PROCEDURE: LOW DOSE CT LUNG SCREENING REASON FOR EXAM: Cigarette smoker for 30 years, mostly 1PPD, now less. Occasional cough. Nicotine dependence. TECHNIQUE: Low Dose CT Lung Screening without contrast COMPARISON: CT examination 10/29/2023. FINDINGS: PULMONARY NODULES: (Only nodules >6mm are reported) Nodules described below are on the axial series unless otherwise specified. Pulmonary Nodules: Stable 6 mm posteromedial nodule at the right lower lobe (centered on axial image 179). A tiny densely calcified left upper lobe nodule is seen on axial image 32. Mild changes of centrilobular emphysema are noted. Lymph Nodes:No mediastinal hilar or axillary lymphadenopathy. Heart and Vasculature:Normal heart size. No pericardial effusion.Thoracic aorta and pulmonary arteries have normal contours; noncontrast technique limits evaluation. Coronary Artery Calcifications: Mild. Lungs and Airways: No acute pneumonic process is seen. Pleura:No pleural effusion. No pneumothorax. Upper Abdomen:Visualized portions of the upper abdominal viscera are unremarkable. Bones: Moderate degenerative changes of the visualized spine are seen.. CT/Low Dose CT Lung Screening IMPRESSION: 1. BASED ON THE ACR LUNG RADS FOR THE MOST SUSPICIOUS NODULE (IF ANY) DESCRIBE D IN THIS REPORT, THE OVERALL LUNG RADS SCORE IS 2. 2 - BENIGN.. RECOMMEND 12-MONTH SCREENING LDCT.. 2. SMOKING CESSATION COUNSELING IS RECOMMENDED IF THE PATIENT IS STILL SMOKING . 3. OTHER SIGNIFICANT FINDINGS: None. One or more dose reduction techniques were used (e.g., Automated exposure contr ol, adjustment of the mA and/or kV according to patient size, use of iterative reconstruction technique). The following information is provided for reference:Lung-RADS 2021 Assessment C ategories. Additional information involving Lung-RADS is available at www.[email or web address].org. 0-INCOMPLETE 1-NEGATIVE:No nodules or definitely benign nodules. Complete, central, popcorn , or centric ring calcifications OR fat containing 2-BENIGN APPEARANCE (based on imaging features or indolent behavior). Juxtaple ural nodule: < 10mm AND solid; smooth margins; oval, entiform, or triangular shape Solid nodule: <6mm at baseline or new< 4mm Part solid Nodule: < 6mm total mean diameter at baseline Nonsolid nodule:(GGN) < 30mm OR >=30mm stable or slowly growing Airway nodule, subsegmental at baseline, new, or stable Category 3 nodule stabl e or decreased in size at 6-month follow-up CT or Category 3 or 4A nodules that resolve on follow-up OR category 4B findings prov en to be benign following diagnotic work up. 3 - Probably Benign (Based on imaging features or behavior) Solid Nodule: >= 6 to <8mm at baseline OR new 4 to <6mm Part-solid nodule: >= 6mm toal mean diam. with solid component <6mm at baseline OR new < 6mm total mean diam. Non-solid nodule: GGN >= 30mm at baseline or new Atypical pulmonary cyst: Growing cystic component (mean diam.) of thick-walled cyst Category 4A nodule stable or decreased in size at 3-month follow-up CT (excl.ai rway). 4A - Suspicious Solid nodule: >=8 to < 15mm at baseline OR growing < 8mm OR new 6 to < 8mm Part solid nodule: >= 6mm total mean diam. w/ solid component >=6mm to < 8mm at baseline OR new or growing < 4mm solid component Airway nodule, segmental or more proximal at baseline or new Atypical pulmonary cyst: Thick-walled OR multilocular at baseline OR becomes mu ltilocular 4B - Very Suspicious Airway nodule, segmental or more proximal, and stable or growing Solid nodule: >= 15mm at baseline OR new or growing >= 8mm Part solid nodule: Solid component >= 8mm OR new or growing >= 4mm solid compon ent Atypical pulmonary cyst: Thick-walled with growing wall thickness/nodularity OR Growing multilocular (mean diam.) OR Multilocular with increased loculation or new/increased opacity Slow-growing solid or part solid nodule w/ growth over multiple screening exams 4X - Very Suspicious Category 3 or 4 nodules with additional features that increase the suspicion fo r lung cancer. S - Clinically Significant or potentially significant findings (non-lung cancer ) Reading Location: [id number]
== END | disposition home or self-care (01) ==
LOC: CT 15:55
PROVIDERS: PCP Family Medicine; Referring Provider Family Medicine; Visit Provider Family Medicine
DX: Z12.2 Encounter for screening for malignant neoplasm of respiratory organs (principal); F17.210 Nicotine dependence, cigarettes, uncomplicated
CPT/HCPCS: 71271

== ENCOUNTER → 2025-04-17 | Outpatient (CLI) | payer OTHER, SELFPAY ==
[2025-04-17 15:02] LABS: Color, Urine Yellow (Yellow); Glucose, Dipstick Normal (Normal); Ketone-Dipstick Negative (Negative); Leukocyte Esterase-Dipstick Negative /ul (Negative); Nitrite-Dipstick Negative (Negative); Occult Blood-Urine Negative /ul (Negative); Protein-Dipstick Negative (Negative); Specific Gravity, Urine 1.025 (1.002-1.030); Urine Bilirubin Dipstick Negative (Negative); Urine Clarity Clear (Clear); Urine Urobilinogen Normal (Normal)
[2025-04-17 15:06] LABS: Absolute Neutrophil Count 5.2 X10^3/uL (2.0-7.7); Basophil# 0.04 X10^3/uL; Basophil% 0.5 % (0-1); Eosinophil# 0.09 X10^3/uL; Eosinophils% 1.1 % (0-5); Hematocrit 39.8 % (37-47); Hemoglobin 13.5 g/dL (12.0-15.0); Lymphocyte % 29.1 % (19-41); Mean Corp Hgb Conc 33.9 g/dL (32-36); Mean Corpuscular Hgb 34.1 pg (27.0-32.0); Mean Corpuscular Volume 100.5 fL (81-99); Mean Platelet Vol. 14.2 fl (6.2-12.0); Monocyte# 0.53 X10^3/uL; Monocyte% 6.4 % (0-10); NRBC Flagged by Analyzer 0 % (0-5); Neutrophil # 5.16 X10^3/uL (2.7-7.7); Neutrophil % 62.5 % (47-70); Platelet Count 177 K/mm3 (150-450); RBC Distribution Width CV 12.6 % (11.6-14.6); RBC Distribution Width SD 47.1 fl (35.1-43.9); Red Blood Count 3.96 M/mm3 (4.2-5.4); White Blood Count 8.3 K/mm3 (4.4-11.0)
[2025-04-17 15:42] LABS: ALB/GLOB Ratio 1.7 RATIO (0.9-2.4); AST(SGOT) 28 U/L (<=31); Alanine Aminotransfer ALT/SGPT 24 U/L (<=34); Albumin, Serum 4.3 g/dL (3.4-4.8); Alkaline Phosphatase 81 U/L (35-104); Anion Gap 11 (5-15); BUN 15 mg/dL (4-19); BUN/Creat Ratio 20.1 RATIO (10-20); Calcium,Total 9.4 mg/dL (7.6-11.0); Carbon Dioxide 24.4 mmol/L (21.0-32.0); Chloride 105 mmol/L (98-108); Creatinine, Serum 0.73 mg/dL (0.70-1.20); EST Glomerular Filtration Rate 91 (>60); Globulin 2.6 g/dL (2.2-4.2); Glucose 121 mg/dL (70-99); Potassium 4.1 mmol/L (3.3-5.1); Protein, Total 6.9 g/dL (5.9-8.4); Sodium Level 140 mmol/L (133-145); Total Bilirubin 0.24 mg/dL (0.00-1.30)
[2025-04-17 16:19] LABS: Protein, Urine (Random) 7.8 mg/dL (0.0-12.0); Protein:Creat Ratio 64 mg/g CRE (0-200)
--- OUTSIDE RECORDS SUMMARY | 2025-04-17 18:22 | XMS RPT_ITS | CCD ---
Author Organization [facility] Care Team Providers Care Grainer Machine Name Role Phone HERMINIA DENISE () Referring Unavailable HERMINIA DENISE () Primary Care Unavailable Herminia Denise) Primary Care Provider Dr. Cyn Montana Primary Care Provider Dr. Cyn Montana Referring Provider CIRA Robins Attending Provider CYN MONTANA Primary Care Physician [phone] CYN MONTANA Primary Care Unavailable HELENE HOWELL DO Attending Unavailable Herminia Deinse Primary Care Provider Cyn Montana Primary Care Unavailable Vellanki, [place] Referring Unavailable Pushpa, [place] Attending Unavailable Cyn Montana Referring Unavailable Cyn Montana Attending Unavailable Cyn Montana Primary Care Unavailable Velsalomón, [place] Attending Unavailable Cyn Montana Primary Care Unavailable Vellanki, [place] Referring Unavailable Cyn Montana Primary Care Unavailable [place]i, [place] Referring Unavailable [place]i, [place] Attending Unavailable Allergies Allergy Classification Reported Allergen(s) Allergy Type Date of Onset Reaction(s) Facility (13 sources) Caffeine; Translations: [CAFFEINE] Drug Allergy 5 Intolerance [facility] Repository (3 sources) BEE VENOM PROTEIN (HONEY BEE); Translations: [BEE VENOM PROTEIN (HONEY BEE)] Propensity to adverse reactions to drug (disorder) 1 Swelling, Itching [facility] Repository (1 source) Bee/Wasp/Ant venom Allergy to substance Swelling (morphologic abnormality) [facility] [place] (1 source) Caffeine Drug Allergy 3 [facility] Repository Medications Current Medications Medication Drug Class(es) Dates Sig (Normalized) Sig (Original) aspirin 81 mg chewable tablet (12 sources) Platelet Aggregation Inhibitor, Nonsteroidal Anti-inflammatory Drug Start: 03-02-2018 take 1 tablet by mouth once Aspirin (Alonso Chewable Aspirin) 81 mg tablet,chewable Active 81 MG PO ONCE March 02, 2018 12:00am Start: 07-21-2016 aspirin 81 mg oral tablet (chewable) Dose : 81 mg = 1 tab(s), Oral, Daily, 0 Refill(s) Start Date: 07/21/16 Status: Ordered take 1 tablet by sally once daily aspirin, enteric coated (ASPIRIN, ENTERIC COATED) 81 mg EC tablet Take 81 mg by mouth once daily. Active Comment on above: Take 81 mg by mouth once daily. DULoxetine 20 mg delayed release oral capsule (3 sources) Serotonin and Norepinephrine Reuptake Inhibitor Start: 2020 take 1 capsule by mouth every twenty-four hours as needed DULoxetine (CYMBALTA) 20 mg capsule Take 20 mg by mouth at bedtime as needed. 03/07/2021 Active Comment on above: Take 20 mg by mouth at bedtime as needed. hydroxychloroquine sulfate 200 mg oral tablet (13 sources) Antimalarial, Antirheumatic Agent Start: 2015 hydroxychloroquine 200 mg oral tablet Dose : 400 mg = 2 tab(s), Oral, qDay, # 180 tab(s), 0 Refill(s) Start Date: 08/29/21 Status: Ordered take 1 tablet by mouth twice peggy ly hydroxychloroquine (PLAQUENIL) 200 mg tablet Take 200 mg by mouth twice daily. Active Comment on above: Take 200 mg by mouth twice daily. MULTIVITAMIN ORAL TAB (2 sources) Start: 5 take 1 tablet by mouth once daily MULTIVITAMIN ORAL TAB Take one(1) tablet daily. 0 07/05/2005 Active Comment on above: Take one(1) tablet d aily. Multivitamin preparation (1 source) Start: 6 take 1 tablet by mouth once daily Multivitamin Dose = 1 tab(s), Oral, Daily, 0 Refill(s) Start Date: 07/24/16 Status: Ordered omeprazole 40 mg delayed release oral capsule (12 sources) Proton Pump Inhibitor Start: take 1 capsule by mouth once daily omeprazole (PRILOSEC) 40 mg capsule Take 40 mg by mouth once daily. 06/08/2021 Active Start: 02-24-2021 take 10 mg by mouth once daily Omeprazole Active 10 MG PO DAILY February 24, 2021 12:00am Comment on above: Take 40 mg by mouth once daily. predniSONE 10 mg oral tablet (3 sources) Start: 03-07-2021 take 1 tablet by mouth once daily as needed predniSONE (DELTASONE) 10 mg tablet TAKE 1 TABLET BY MOUTH ONCE DAILY NEEDED FOR 3 TO 5 DAYS WITH A FLARE 03/07/2021 Active Comment on above: TAKE 1 TABLET BY SALLY ONCE DAILY NEEDED FOR 3 TO 5 DAYS WITH A FLARE Completed/Discontinued Medications Medication Drug Class(es) Dates Sig (Normalized) Sig (Original) amoxicillin 875 mg / clavulanate 125 mg oral tablet (20 sources) Penicillin-class Antibacterial Start: 07-04-2023 End: 07-14-2023 take 1 tablet by mouth every twelve hours Amoxicillin-Pot Clavulanate Discontinued 1 TABLET PO Q12H 31 08July 04, 2023 12:00am July 14, 2023 12:12am Start: 10-18-2022 End: 10-28-2022 take 1 tablet by mouth every twelve hours Amoxicillin-Pot Clavulanate Discontinued 1 TABLET PO Q12H 31 08October 18, 2022 1:00am October 28, 2022 1:12am Start: 09-09-2021 End: 09-19-2021 take 1 tablet by mouth every twelve hours Amoxicillin-Pot Clavulanate (Augmentin) 875-125 mg tablet Discontinued 1 TABLET PO Q12H 31 08September 09, 2021 12:00am September 19, 2021 1:01am Start: 02-24-2021 End: 09-09-2021 take 1 tablet by mouth twice daily Amoxicillin-Pot Clavulanate Discontinued 1 TABLET PO TWICE A DAY February 24, 2021 12:00am September 09, 2021 5:44pm Start: 10-15-2018 End: 10-25-2018 take 1 tablet by mouth every twelve hours Amoxicillin-Pot Clavulanate (Augmentin) 875-125 mg tablet Discontinued 1 TABLET PO Q12H 31 08October 15, 2018 1:00am October 25, 2018 1:13am azithromycin 250 mg oral tablet (9 sources) Macrolide Antimicrobial Start: 03-02-2018 End: 10-15-2018 take 2-5 tablets by mouth once daily Azithromycin (Zithromax Z-Neptali) 250 mg tablet Discontinued 0 PO .COMPLEX March 02, 2018 12:00am October 15, 2018 2:27pm take 500 mg today (day 1), then 250 mg for 4 days (days 2-5) PO methylPREDNISolone 4 mg oral tablet (9 sources) Corticosteroid Start: 09-09-2021 End: 09-14-2021 take 1 tablet by mouth once Methylprednisolone (Medrol (Neptali)) 4 mg tablets,dose pack Discontinued 4 MG PO per package directions 01 04September 09, 2021 12:00am September 14, 2021 12:01am Problems Active Problems Problem Classification Problem Date Documented Da te Episodic/Chronic Abdominal hernia (1 source) Inguinal hernia 08-29-2021 Episodic Immunizations and screening for infectious disease (8 sources) Contact with and (suspected) exposure to other viral communicable diseases; Translations: [Contact with or suspected exposure to other viral communicable disease] 10-18-2022 Episodic Menopausal disorders (2 sources) Premature menopause; Translations: [Asymptomatic premature menopause] Onset: 06-19-2008 06-19-2008 Chronic Other screening for suspected conditions (not mental disorders or infectious disease) (1 source) Encounter for screening for malignant neoplasm of respiratory organs; Translations: [Encounter for screening for malignant neoplasm of respiratory organs] Onset: 12-30-2024 Episodic Other upper respiratory disease (2 sources) Allergic rhinitis; Translations: [Allergic rhinitis, unspecified] Onset: 07-05-2005 06-19-2008 Chronic Other upper respiratory infections (20 sources) Acute sinusitis; Translations: [Acute sinusitis, unspecified] 02-24-2021 Episodic Rheumatoid arthritis and related disease (3 sources) Inflammatory polyarthropathy; Translations: [Inflammatory polyarthropathy] Onset: 03-11-2019 06-25-2019 Chronic Spondylosis; intervertebral disc disorders; other back problems (2 sources) Lumbosacral spondylosis; Translations: [Other spondylosis, lumbosacral region] Onset: 03-11-2019 06-25-2019 Chronic Substance-related disorders (2 sources) Tobacco user; Translations: [Nicotine dependence, unspecified, uncomplicated] Onset: 06-19-2008 06-19-2008 Chronic Systemic lupus erythematosus and connective tissue disorders (2 sources) Systemic lupus erythematosus; Translations: [Systemic lupus erythematosus, unspecified] Onset: 07-30-2008 07-30-2008 Chronic Past or Other Problems Problem Classification Problem Date Documented Da te Episodic/Chronic Nonmalignant breast conditions (2 sources) Breast lump; Translations: [Unspecified lump in unspecified breast] Onset: 06-21-2007 06-19-2008 Episodic Other bone disease and musculoskeletal deformities (2 sources) Disorder of skeletal system; Translations: [Disorder of bone, unspecified] Onset: 07-01-2008 07-01-2008 Episodic Results Test Name Value Interpretation Reference Range Facility Low Dose CT Lung Screeningon 12-11-[address] Lung Screening [facility] [address] [place] [id number] Lung Screening MR#: [id number] Acct: [id number] Name: SUMMER CROCKETT UCHE Rep #: [id number] : 1960 F 64 From: Rk Serra PCP: Dr. Cyn Montana MD Status: [facility] Study: Low Dose CT Lung Screening Date of Exam: 12/11 Exam# [id number] Ordering Dr: Cyn Montana MD PROCEDURE: LOW DOSE CT LUNG SCREENING REASON FOR EXAM: Cigarette smoker for 30 years, mostly 1PPD, now less. Occasional cough. Nicotine dependence. TECHNIQUE: Low Dose CT Lung Screening without contrast COMPARISON: CT examination 10/29/2023. FINDINGS: PULMONARY NODULES: (Only nodules >6mm are reported) Nodules described below are on the axial series unless otherwise specified. Pulmonary Nodules: Stable 6 mm posteromedial nodule at the right lower lobe (centered on axial image 179). A tiny densely calcified left upper lobe nodule is seen on axial image 32. Mild changes of centrilobular emphysema are noted. Lymph Nodes:No mediastinal hilar or axillary lymphadenopathy. Heart and Vasculature:Normal heart size. No pericardial effusion.Thoracic aorta and pulmonary arteries have normal contours; noncontrast technique limits evaluation. Coronary Artery Calcifications: Mild. Lungs and Airways: No acute pneumonic process is seen. Pleura:No pleural effusion. No pneumothorax. Upper Abdomen:Visualized portions of the upper abdominal viscera are unremarkable. Bones: Moderate degenerative changes of the visualized spine are seen.. CT/Low Dose CT Lung Screening IMPRESSION: 1. BASED ON THE ACR LUNG RADS FOR THE MOST SUSPICIOUS NODULE (IF ANY) DESCRIBED IN THIS REPORT, THE OVERALL LUNG RADS SCORE IS 2. 2 - BENIGN.. RECOMMEND 12-MONTH SCREENING LDCT.. 2. SMOKING CESSATION COUNSELING IS RECOMMENDED IF THE PATIENT IS STILL SMOKING. 3. OTHER SIGNIFICANT FINDINGS: None. One or more dose reduction techniques were used (e.g., Automated exposure control, adjustment of the mA and/or kV according to patient size, use of iterative reconstruction technique). The following information is provided for reference:Lung-RADS 2022 Assessment Categories. Additional information involving Lung-RADS is available at www.acr.org. 0-INCOMPLETE 1-NEGATIVE:No nodules or definitely benign nodules. Complete, central, popcorn, or centric ring calcifications OR fat containing 2-BENIGN APPEARANCE (based on imaging features or indolent behavior). Juxtapleural nodule: < 10mm AND solid; smooth margins; oval, entiform, or triangular shape Solid nodule: <6mm at baseline or new< 4mm Part solid Nodule: < 6mm total mean diameter at baseline Nonsolid nodule:(GGN) < 30mm OR >=30mm stable or slowly growing Airway nodule, subsegmental at baseline, new, or stable Category 3 nodule stable or decreased in size at 6-month follow-up CT or Category 3 or 4A nodules that resolve on follow-up OR category 4B findings proven to be benign following diagnotic work up. 3 - Probably Benign (Based on imaging features or behavior) Solid Nodule: >= 6 to <8mm at baseline OR new 4 to <6mm Part-solid nodule: >= 6mm toal mean diam. with solid component <6mm at baseline OR new < 6mm total mean diam. Non-solid nodule: GGN >= 30mm at baseline or new Atypical pulmonary cyst: Growing cystic component (mean diam.) of thick-walled cyst Category 4A nodule stable or decreased in size at 3-month follow-up CT (excl.airway). 4A - Suspicious Solid nodule: >=8 to < 15mm at baseline OR growing < 8mm OR new 6 to < 8mm Part solid nodule: >= 6mm total mean diam. w/ solid component >=6mm to < 8mm at baseline OR new or growing < 4mm solid component Airway nodule, segmental or more proximal at baseline or new Atypical pulmonary cyst: Thick-walled OR multilocular at baseline OR becomes multilocular 4B - Very Suspicious Airway nodule, segmental or more proximal, and stable or growing Solid nodule: >= 15mm at baseline OR new or growing >= 8mm Part solid nodule: Solid component >= 8mm OR new or growing >= 4mm solid component Atypical pulmonary cyst: Thick-walled with growing wall thickness/nodularity OR Growing multilocular (mean diam.) OR Multilocular with increased loculation or new/increased opacity Slow-growing solid or part solid nodule w/ growth over multiple screening exams 4X - Very Suspicious Category 3 or 4 nodules with additional features that increase the suspicion for lung cancer. S - Clinically Significant or potentially significant findings (non-lung cancer) Reading Location: [address] CC: Dr. Cyn Montana MD Force Dispatcher: Signed Normal [facility] Complement C3on 10-28-2024 COMP C3 133 mg/dL Normal 82-167 [facility] Comment on above: Result Comment: Perf ormed at: - [facility] [id number] [place], [place] [id number] Teacher Asst: Alex Barrow PhD, Phone: [phone] Performed By: #### L 501.0900, L100.0100, L3100.5800, L3100.5700, L500.4050, L400.2010 #### [facility] [address] [place], [address] Complement C4on 10-28-2024 COMPLEMENT, C4 26 mg/dL Normal 12-38 [facility] Comment on above: Performed By: #### L 501.0900, L100.0100, L3100.5800, L3100.5700, L500.4050, L400.2010 #### [facility] [address] [place], [address] CBC W/Diff, Automatedon 12-1 -2023 Absolute Lymph 2.29 X10 3/uL Normal 0.83-4.51 [facility] Comment on above: Performed By: #### L 501.0900, L100.0100, L3100.5800, L3100.5700, L500.4050, L400.2010 #### [facility] [address] [place], [address] Absolute Neut 4.4 X10 3/uL Normal 2.0-7.7 [facility] Comment on above: Performed By: #### L 501.0900, L100.0100, L3100.5800, L3100.5700, L500.4050, L400.2010 #### [facility] [address] [place], [address] Basophils/100 WBC (Bld) 0.4 % Normal 0-1 [facility] Comment on above: Performed By: #### L 501.0900, L100.0100, L3100.5800, L3100.5700, L500.4050, L400.2010 #### [facility] [address] [place], [address] Eosinophils/100 WBC (Bld) 1.1 % Normal 0-5 [facility] Comment on above: Performed By: #### L 501.0900, L100.0100, L3100.5800, L3100.5700, L500.4050, L400.2010 #### [facility] [address] [place], [address] Erythrocyte distribution width (RBC) [Ratio] 12.9 % Normal 11.6-14.6 [facility] Comment on above: Performed By: #### L 501.0900, L100.0100, L3100.5800, L3100.5700, L500.4050, L400.2010 #### [facility] [address] [place], [address] Hematocrit (Bld) [Volume fraction] 39.3 % Normal 37-47 [facility] Comment on above: Performed By: #### L 501.0900, L100.0100, L3100.5800, L3100.5700, L500.4050, L400.2010 #### [facility] [address] [place], [address] Hemoglobin (Bld) [Mass/Vol] 13.3 g/dL Normal 12.0-15.0 [facility] Comment on above: Performed By: #### L 501.0900, L100.0100, L3100.5800, L3100.5700, L500.4050, L400.2010 #### [facility] [address] [place], [address] IG% 0.300 Normal 0.0-0.9 [facility] Comment on above: Result Comment: IG% - Immature Granulocytes (promyelocytes, myelocytes and metamyelocytes) > 1% indicates that a LEFT SHIFT is Present. Performed By: #### L 501.0900, L100.0100, L3100.5800, L3100.5700, L500.4050, L400.2010 #### [facility] [address] [place], [address] Lymphocytes/100 WBC (Bld) 31.2 % Normal 19-41 [facility] Comment on above: Performed By: #### L 501.0900, L100.0100, L3100.5800, L3100.5700, L500.4050, L400.2010 #### [facility] [address] [place], [address] MCH (RBC) [Entitic mass] 33.3 pg High 27.0-32.0 [facility] Comment on above: Performed By: #### L 501.0900, L100.0100, L3100.5800, L3100.5700, L500.4050, L400.2010 #### [facility] [address] [place], [address] MCHC (RBC) [Mass/Vol] 33.8 g/dL Normal 32-36 [facility] Comment on above: Performed By: #### L 501.0900, L100.0100, L3100.5800, L3100.5700, L500.4050, L400.2010 #### [facility] [address] [place], [address] MCV (RBC) [Entitic vol] 98.5 fL Normal 81-99 [facility] Comment on above: Performed By: #### L 501.0900, L100.0100, L3100.5800, L3100.5700, L500.4050, L400 #### [facility] [address] [place], [address] Monocytes/100 WBC (Bld) 7.1 % Normal 0-10 [facility] Comment on above: Performed By: #### L 501.0900, L100.0100, L3100.5800, L3100.5700, L500.4050, L400.2010 #### [facility] [address] [place], [address] Neutrophils/100 WBC (Bld) 59.9 % Normal 47-70 [facility] Comment on above: Performed By: #### L 501.0900, L100.0100, L3100.5800, L3100.5700, L500.4050, L400.2010 #### [facility] [address] [place], [address] Nucleated RBC (Bld) [#/Vol] 0 10*3/uL Normal 0-5 [facility] Comment on above: Performed By: #### L 501.0900, L100.0100, L3100.5800, L3100.5700, L500.4050, L400.2010 #### [facility] [address] [place], [address] Platelet mean volume (Bld) [Entitic vol] 14.0 fL High 6.2-12.0 [facility] Comment on above: Performed By: #### L 501.0900, L100.0100, L3100.5800, L3100.5700, L500.4050, L400.2010 #### [facility] [address] [place], [address] Platelets (Bld) [#/Vol] 171 10*3/uL Normal 150-450 [facility] Comment on above: Performed By: #### L 501.0900, L100.0100, L3100.5800, L3100.5700, L500.4050, L400.2010 #### [facility] [address] [place], [address] RBC (Bld) [#/Vol] 3.99 10*6/uL Low 4.2-5.4 [facility] Comment on above: Performed By: #### L 501.0900, L100.0100, L3100.5800, L3100.5700, L500.4050, L400.2010 #### [facility] [address] [place], [address] RDW SD 46.2 fl High 35.1-43.9 [facility] Comment on above: Performed By: #### L 501.0900, L100.0100, L3100.5800, L3100.5700, L500.4050, L400.2010 #### [facility] [address] [place], [address] WBC (Bld) [#/Vol] 7.4 10*3/uL Normal 4.4-11.0 [facility] Comment on above: Performed By: #### L 501.0900, L100.0100, L3100.5800, L3100.5700, L500.4050, L400.2010 #### [facility] [address] [place], [address] Comprehensive Metabolic Prof ndon 10-24-2024 Albumin [Mass/Vol] 3.9 g/dL Normal 3.2-5.0 [facility] Comment on above: Performed By: #### L 501.0900, L100.0100, L3100.5800, L3100.5700, L500.4050, L400.2010 #### [facility] [address] [place], [address] Albumin/Globulin [Mass ratio] 1.2 {ratio} Normal 0.9-2.4 [facility] Comment on above: Performed By: #### L 501.0900, L100.0100, L3100.5800, L3100.5700, L500.4050, L400.2010 #### [facility] [address] [place], [address] ALK P 72 U/L Normal 45-117 [facility] Comment on above: Performed By: #### L 501.0900, L100.0100, L3100.5800, L3100.5700, L500.4050, L400.2010 #### [facility] [address] [place], [address] ALT [Catalytic activity/Vol] 33 U/L Normal 13-56 [facility] Comment on above: Performed By: #### L 501.0900, L100.0100, L3100.5800, L3100.5700, L500.4050, L400.2010 #### [facility] [address] [place], [address] AST [Catalytic activity/Vol] 28 U/L Normal 15-37 [facility] Comment on above: Performed By: #### L 501.0900, L100.0100, L3100.5800, L3100.5700, L500.4050, L400.2010 #### [facility] [address] [place], [address] Bilirubin [Mass/Vol] 0.20 mg/dL Normal 0.20-1.00 [facility] Comment on above: Result Comment: For patients on eltrombopag therapy, use of Dimension [place] TBIL is not recommended. Performed By: #### L 501.0900, L100.0100, L3100.5800, L3100.5700, L500.4050, L400.2010 #### [facility] [address] [place], [address] BUN/CRE 22.5 RATIO High 10-20 [facility] Comment on above: Performed By: #### L 501.0900, L100.0100, L3100.5800, L3100.5700, L500.4050, L400.2010 #### [facility] [address] [place], [address] CA,Total 9.2 mg/dL Normal 8.5-10.1 [facility] Comment on above: Performed By: #### L 501.0900, L100.0100, L3100.5800, L3100.5700, L500.4050, L400.2010 #### [facility] [address] [place], [address] Chloride [Moles/Vol] 107 mmol/L Normal 98-107 [facility] Comment on above: Performed By: #### L 501.0900, L100.0100, L3100.5800, L3100.5700, L500.4050, L400.2010 #### [facility] [address] [place], [address] CO2 [Moles/Vol] 27.0 mmol/L Normal 21.0-32.0 [facility] Comment on above: Performed By: #### L 501.0900, L100.0100, L3100.5800, L3100.5700, L500.4050, L400.2010 #### [facility] [address] [place], [address] Creatinine [Mass/Vol] 0.75 mg/dL Normal 0.55-1.02 [facility] Comment on above: Result Comment: The validity of the calculated GFR GFRAA in patients over 70 years has not been determined. Clinical correlation is essential. Performed By: #### L 501.0900, L100.0100, L3100.5800, L3100.5700, L500.4050, L400.2010 #### [facility] [address] [place], [address] EST GFR - AA 99 mL/min Normal >60 [facility] Comment on above: Result Comment: Afri can Malagasy GFR Calc Performed By: #### L 501.0900, L100.0100, L3100.5800, L3100.5700, L500.4050, L400.2010 #### [facility] [address] [place], [address] GAP 5 Normal 5-15 [facility] Comment on above: Performed By: #### L 501.0900, L100.0100, L3100.5800, L3100.5700, L500.4050, L400.2010 #### [facility] [address] [place], [address] GFR/1.73 sq M.predicted among non-blacks MDRD (S/P/Bld) [Vol rate/Area] 82 mL/min/{1.73_m2} Normal >60 [facility] Comment on above: Result Comment: Non- GFR Calc Performed By: #### L 501.0900, L100.0100, L3100.5800, L3100.5700, L500.4050, L400.2010 #### [facility] [address] [place], [address] Globulin (S) [Mass/Vol] 3.3 g/dL Normal 2.2-4.2 [facility] Comment on above: Performed By: #### L 501.0900, L100.0100, L3100.5800, L3100.5700, L500.4050, L400.2010 #### [facility] [address] [place], [address] Glucose [Mass/Vol] 93 mg/dL Normal 74-106 [facility] Comment on above: Performed By: #### L 501.0900, L100.0100, L3100.5800, L3100.5700, L500.4050, L400.2010 #### [facility] [address] [place], [address] Potassium [Moles/Vol] 3.5 mmol/L Normal 3.5-5.1 [facility] Comment on above: Performed By: #### L 501.0900, L100.0100, L3100.5800, L3100.5700, L500.4050, L400.2010 #### [facility] [address] [place], [address] Sodium [Moles/Vol] 138 mmol/L Normal 136-145 [facility] Comment on above: Performed By: #### L 501.0900, L100.0100, L3100.5800, L3100.5700, L500.4050, L400.2010 #### [facility] [address] [place], [address] T PROT 7.2 g/dL Normal 6.4-8.2 [facility] Comment on above: Performed By: #### L 501.0900, L100.0100, L3100.5800, L3100.5700, L500.4050, L400.2010 #### [facility] [address] [place], [address] Urea nitrogen [Mass/Vol] 17 mg/dL Normal 7-18 [facility] Comment on above: Performed By: #### L 501.0900, L100.0100, L3100.5800, L3100.5700, L500.4050, L400.2010 #### [facility] [address] [place], [address] Protein+Creatinine Ratio,Uri neon 10-24-2024 PROT:CRE RATIO 225 mg/g CRE High 0-200 [facility] Comment on above: Performed By: #### L 501.0900, L100.0100, L3100.5800, L3100.5700, L500.4050, L400.2010 #### [facility] [address] [place], [address] Protein (U) [Mass/Vol] 33.8 mg/dL High <11.9 [facility] Comment on above: Performed By: #### L 501.0900, L100.0100, L3100.5800, L3100.5700, L500.4050, L400.2010 #### [facility] [address] [place], [address] UR CREAT 150.00 mg/dL Normal NO RANGE EST. [facility] Comment on above: Performed By: #### L 501.0900, L100.0100, L3100.5800, L3100.5700, L500.4050, L400.2010 #### [facility] [address] [place], [address] Urinalysis, Routine (Dipstic k)on 10-24-2024 BILIRUBIN URINE Negative Normal Negative [facility] Comment on above: Order Comment: CLEAN CATCH Performed By: #### L 501.0900, L100.0100, L3100.5800, L3100.5700, L500.4050, L400.2010 #### [facility] [address] [place], [address] Clarity (U) Sl. Cloudy Normal Clear [facility] Comment on above: Order Comment: CLEAN CATCH Performed By: #### L 501.0900, L100.0100, L3100.5800, L3100.5700, L500.4050, L400.2010 #### [facility] [address] [place], [address] Color (U) Yellow Normal Yellow [facility] Comment on above: Order Comment: CLEAN CATCH Performed By: #### L 501.0900, L100.0100, L3100.5800, L3100.5700, L500.4050, L400.2010 #### [facility] [address] [place], [address] GLUCOSE, UR Normal Normal Normal [facility] Comment on above: Order Comment: CLEAN CATCH Performed By: #### L 501.0900, L100.0100, L3100.5800, L3100.5700, L500.4050, L400.2010 #### [facility] [address] [place], [address] KETONE UR Negative Normal Negative [facility] Comment on above: Order Comment: CLEAN CATCH Performed By: #### L 501.0900, L100.0100, L3100.5800, L3100.5700, L500.4050, L400.2010 #### [facility] [address] [place], [address] LEUK ESTERASE 25 /ul Abnormal Negative [facility] Comment on above: Order Comment: CLEAN CATCH Performed By: #### L 501.0900, L100.0100, L3100.5800, L3100.5700, L500.4050, L400.2010 #### [facility] [address] [place], [address] Nitrite Ql (U) Negative Normal Negative [facility] Comment on above: Order Comment: CLEAN CATCH Performed By: #### L 501.0900, L100.0100, L3100.5800, L3100.5700, L500.4050, L400.2010 #### [facility] [address] [place], [address] OCCULT BLOOD-UR 10 /ul Abnormal Negative [facility] Comment on above: Order Comment: CLEAN CATCH Performed By: #### L 501.0900, L100.0100, L3100.5800, L3100.5700, L500.4050, L400.2010 #### [facility] [address] [place], [address] pH UR 6.0 Normal 5.0 - 8.0 [facility] Comment on above: Order Comment: CLEAN CATCH Performed By: #### L 501.0900, L100.0100, L3100.5800, L3100.5700, L500.4050, L400.2010 #### [facility] [address] [place], [address] PROT DIPSTX 15 mg/dl Abnormal Negative [facility] Comment on above: Order Comment: CLEAN CATCH Performed By: #### L 501.0900, L100.0100, L3100.5800, L3100.5700, L500.4050, L400.2010 #### [facility] [address] [place], [address] SP.GR. DIPSTX 1.025 Normal 1.002-1.030 [facility] Comment on above: Order Comment: CLEAN CATCH Performed By: #### L 501.0900, L100.0100, L3100.5800, L3100.5700, L500.4050, L400.2010 #### [facility] [address] [place], [address] UROBILI Normal Normal Normal [facility] Comment on above: Order Comment: CLEAN CATCH Performed By: #### L 501.0900, L100.0100, L3100.5800, L3100.5700, L500.4050, L400.2010 #### [facility] [address] [place], [address] Complement C3on 05-07-2024 COMP C3 115 mg/dL Normal 82-167 [facility] Comment on above: Result Comment: Perf ormed at: - [facility] [address] [id number] Teacher Asst: Alex Barrow PhD, Phone: [phone] Performed By: #### L 501.0900, L100.0100, L3100.5800, L3100.5700, L500.4050, L400.2010 #### [facility] [address] [place], [address] Complement C4on 05-07-2024 COMPLEMENT, C4 27 mg/dL Normal 12-38 [facility] Comment on above: Performed By: #### L 501.0900, L100.0100, L3100.5800, L3100.5700, L500.4050, L400.2010 #### [facility] [address] [place], [address] CBC W/Diff, Automatedon 04-13 Absolute Lymph 1.61 X10 3/uL Normal 0.83-4.51 [facility] Comment on above: Performed By: #### L 501.0900, L3100.5800, L3100.5700, L500.4050, L400.2010, L100.0100 #### [facility] [address] [place], [address] Absolute Neut 5.1 X10 3/uL Normal 2.0-7.7 [facility] Comment on above: Performed By: #### L 501.0900, L3100.5800, L3100.5700, L500.4050, L400.2010, L100.0100 #### [facility] [address] [place], [address] Basophils/100 WBC (Bld) 0.3 % Normal 0-1 [facility] Comment on above: Performed By: #### L 501.0900, L3100.5800, L3100.5700, L500.4050, L400.2010, L100.0100 #### [facility] [address] [place], [address] Eosinophils/100 WBC (Bld) 0.5 % Normal 0-5 [facility] Comment on above: Performed By: #### L 501.0900, L3100.5800, L3100.5700, L500.4050, L400.2010, L100.0100 #### [facility] [address] [place], [address] Erythrocyte distribution width (RBC) [Ratio] 13.2 % Normal 11.6-14.6 [facility] Comment on above: Performed By: #### L 501.0900, L3100.5800, L3100.5700, L500.4050, L400.2010, L100.0100 #### [facility] [address] [place], [address] Hematocrit (Bld) [Volume fraction] 38.5 % Normal 37-47 [facility] Comment on above: Performed By: #### L 501.0900, L3100.5800, L3100.5700, L500.4050, L400.2010, L100.0100 #### [facility] [address] [place], [address] Hemoglobin (Bld) [Mass/Vol] 12.6 g/dL Normal 12.0-15.0 [facility] Comment on above: Performed By: #### L 501.0900, L3100.5800, L3100.5700, L500.4050, L400.2010, L100.0100 #### [facility] [address] [place], [address] IG% 0.300 Normal 0.0-0.9 [facility] Comment on above: Result Comment: IG% - Immature Granulocytes (promyelocytes, myelocytes and metamyelocytes) > 1% indicates that a LEFT SHIFT is Present. Performed By: #### L 501.0900, L3100.5800, L3100.5700, L500.4050, L400.2010, L100.0100 #### [facility] [address] [place], [address] Lymphocytes/100 WBC (Bld) 22.1 % Normal 19-41 [facility] Comment on above: Performed By: #### L 501.0900, L3100.5800, L3100.5700, L500.4050, L400.2010, L100.0100 #### [facility] [address] [place], [address] MCH (RBC) [Entitic mass] 32.5 pg High 27.0-32.0 [facility] Comment on above: Performed By: #### L 501.0900, L3100.5800, L3100.5700, L500.4050, L400.2010, L100.0100 #### [facility] [address] [place], [address] MCHC (RBC) [Mass/Vol] 32.7 g/dL Normal 32-36 [facility] Comment on above: Performed By: #### L 501.0900, L3100.5800, L3100.5700, L500.4050, L400.2010, L100.0100 #### [facility] [address] [place], [address] MCV (RBC) [Entitic vol] 99.2 fL High 81-99 [facility] Comment on above: Performed By: #### L 501.0900, L3100.5800, L3100.5700, L500.4050, L400.2010, L100.0100 #### [facility] [address] [place], [address] Monocytes/100 WBC (Bld) 6.6 % Normal 0-10 [facility] Comment on above: Performed By: #### L 501.0900, L3100.5800, L3100.5700, L500.4050, L400.2010, L100.0100 #### [facility] [address] [place], [address] Neutrophils/100 WBC (Bld) 70.2 % High 47-70 [facility] Comment on above: Performed By: #### L 501.0900, L3100.5800, L3100.5700, L500.4050, L400.2010, L100.0100 #### [facility] [address] [place], [address] Nucleated RBC (Bld) [#/Vol] 0 10*3/uL Normal 0-5 [facility] Comment on above: Performed By: #### L 501.0900, L3100.5800, L3100.5700, L500.4050, L400.2010, L100.0100 #### [facility] [address] [place], [address] Platelet mean volume (Bld) [Entitic vol] 13.8 fL High 6.2-12.0 [facility] Comment on above: Performed By: #### L 501.0900, L3100.5800, L3100.5700, L500.4050, L400.2010, L100.0100 #### [facility] [address] [place], [address] Platelets (Bld) [#/Vol] 171 10*3/uL Normal 150-450 [facility] Comment on above: Performed By: #### L 501.0900, L3100.5800, L3100.5700, L500.4050, L400.2010, L100.0100 #### [facility] [address] [place], [address] RBC (Bld) [#/Vol] 3.88 10*6/uL Low 4.2-5.4 [facility] Comment on above: Performed By: #### L 501.0900, L3100.5800, L3100.5700, L500.4050, L400.2010, L100.0100 #### [facility] [address] [place], [address] RDW SD 48.1 fl High 35.1-43.9 [facility] Comment on above: Performed By: #### L 501.0900, L3100.5800, L3100.5700, L500.4050, L400.2010, L100.0100 #### [facility] [address] [place], [address] WBC (Bld) [#/Vol] 7.3 10*3/uL Normal 4.4-11.0 [facility] Comment on above: Performed By: #### L 501.0900, L3100.5800, L3100.5700, L500.4050, L400.2010, L100.0100 #### [facility] [address] [place], [address] Comprehensive Metabolic Prof [facility] 05-05-2024 Albumin [Mass/Vol] 3.5 g/dL Normal 3.2-5.0 [facility] Comment on above: Performed By: #### L 501.0900, L3100.5800, L3100.5700, L500.4050, L400.2010, L100.0100 #### [facility] [address] [place], [address] Albumin/Globulin [Mass ratio] 1.0 {ratio} Normal 0.9-2.4 [facility] Comment on above: Performed By: #### L 501.0900, L3100.5800, L3100.5700, L500.4050, L400.2010, L100.0100 #### [facility] [address] [place], [address] ALK P 86 U/L Normal 45-117 [facility] Comment on above: Performed By: #### L 501.0900, L3100.5800, L3100.5700, L500.4050, L400.2010, L100.0100 #### [facility] [address] [place], [address] ALT [Catalytic activity/Vol] 34 U/L Normal 13-56 [facility] Comment on above: Performed By: #### L 501.0900, L3100.5800, L3100.5700, L500.4050, L400.2010, L100.0100 #### [facility] [address] [place], [address] AST [Catalytic activity/Vol] 29 U/L Normal 15-37 [facility] Comment on above: Performed By: #### L 501.0900, L3100.5800, L3100.5700, L500.4050, L400.2010, L100.0100 #### [facility] [address] [place], [address] Bilirubin [Mass/Vol] 0.20 mg/dL Normal 0.20-1.00 [facility] Comment on above: Result Comment: For patients on eltrombopag therapy, use of Dimension [place] TBIL is not recommended. Performed By: #### L 501.0900, L3100.5800, L3100.5700, L500.4050, L400.2010, L100.0100 #### [facility] [address] [place], [address] BUN/CRE 20.7 RATIO High 10-20 [facility] Comment on above: Performed By: #### L 501.0900, L3100.5800, L3100.5700, L500.4050, L400.2010, L100.0100 #### [facility] [address] [place], [address] CA,Total 8.9 mg/dL Normal 8.5-10.1 [facility] Comment on above: Performed By: #### L 501.0900, L3100.5800, L3100.5700, L500.4050, L400.2010, L100.0100 #### [facility] [address] [place], [address] Chloride [Moles/Vol] 111 mmol/L High 98-107 [facility] Comment on above: Performed By: #### L 501.0900, L3100.5800, L3100.5700, L500.4050, L400.2010, L100.0100 #### [facility] [address] [place], [address] CO2 [Moles/Vol] 24.0 mmol/L Normal 21.0-32.0 [facility] Comment on above: Performed By: #### L 501.0900, L3100.5800, L3100.5700, L500.4050, L400.2010, L100.0100 #### [facility] [address] [place], [address] Creatinine [Mass/Vol] 0.68 mg/dL Normal 0.55-1.02 [facility] Comment on above: Result Comment: The validity of the calculated GFR GFRAA in patients over 70 years has not been determined. Clinical correlation is essential. Performed By: #### L 501.0900, L3100.5800, L3100.5700, L500.4050, L400.2010, L100.0100 #### [facility] [address] [place], [address] EST GFR - AA 113 mL/min Normal >60 [facility] Comment on above: Result Comment: Afri can Malagasy GFR Calc Performed By: #### L 501.0900, L3100.5800, L3100.5700, L500.4050, L400.2010, L100.0100 #### [facility] [address] [place], [address] GAP 6 Normal 5-15 [facility] Comment on above: Performed By: #### L 501.0900, L3100.5800, L3100.5700, L500.4050, L400.2010, L100.0100 #### [facility] [address] [place], [address] GFR/1.73 sq M.predicted among non-blacks MDRD (S/P/Bld) [Vol rate/Area] 93 mL/min/{1.73_m2} Normal >60 [facility] Comment on above: Result Comment: Non- GFR Calc Performed By: #### L 501.0900, L3100.5800, L3100.5700, L500.4050, L400.2010, L100.0100 #### [facility] [address] [place], [address] Globulin (S) [Mass/Vol] 3.4 g/dL Normal 2.2-4.2 [facility] Comment on above: Performed By: #### L 501.0900, L3100.5800, L3100.5700, L500.4050, L400.2010, L100.0100 #### [facility] [address] [place], [address] Glucose [Mass/Vol] 112 mg/dL High 74-106 [facility] Comment on above: Result Comment: Fast ing Glucose result from 100 to 125 mg/dL suggests IMPAIRED HOMEOSTASIS per A.D.A. criteria. Performed By: #### L 501.0900, L3100.5800, L3100.5700, L500.4050, L400.2010, L100.0100 #### [facility] [address] [place], [address] Potassium [Moles/Vol] 3.6 mmol/L Normal 3.5-5.1 [facility] Comment on above: Performed By: #### L 501.0900, L3100.5800, L3100.5700, L500.4050, L400.2010, L100.0100 #### [facility] [address] [place], [address] Sodium [Moles/Vol] 141 mmol/L Normal 136-145 [facility] Comment on above: Performed By: #### L 501.0900, L3100.5800, L3100.5700, L500.4050, L400.2010, L100.0100 #### [facility] [address] [place], [address] T PROT 6.9 g/dL Normal 6.4-8.2 [facility] Comment on above: Performed By: #### L 501.0900, L3100.5800, L3100.5700, L500.4050, L400.2010, L100.0100 #### [facility] [address] [place], [address] Urea nitrogen [Mass/Vol] 14 mg/dL Normal 7-18 [facility] Comment on above: Performed By: #### L 501.0900, L3100.5800, L3100.5700, L500.4050, L400.2010, L100.0100 #### [facility] [address] [place], [address] Protein+Creatinine Ratio,Uri neon 05-05-2024 PROT:CRE RATIO 331 mg/g CRE High 0-200 [facility] Comment on above: Performed By: #### L 501.0900, L3100.5800, L3100.5700, L500.4050, L400.2010, L100.0100 #### [facility] [address] [place], [address] Protein (U) [Mass/Vol] 49.0 mg/dL High <11.9 [facility] Comment on above: Performed By: #### L 501.0900, L3100.5800, L3100.5700, L500.4050, L400.2010, L100.0100 #### [facility] [address] [place], [address] UR CREAT 148.00 mg/dL Normal NO RANGE EST. [facility] Comment on above: Performed By: #### L 501.0900, L3100.5800, L3100.5700, L500.4050, L400.2010, L100.0100 #### [facility] [address] [place], [address] Urinalysis, Routine (Dipstic k)on 05-05-2024 BILIRUBIN URINE Negative Normal Negative [facility] Comment on above: Order Comment: Urine , Random Performed By: #### L 501.0900, L3100.5800, L3100.5700, L500.4050, L400.2010, L100.0100 #### [facility] [address] [place], [address] Clarity (U) Clear Normal Clear [facility] Comment on above: Order Comment: Urine , Random Performed By: #### L 501.0900, L3100.5800, L3100.5700, L500.4050, L400.2010, L100.0100 #### [facility] [address] [place], [address] Color (U) Yellow Normal Yellow [facility] Comment on above: Order Comment: Urine , Random Performed By: #### L 501.0900, L3100.5800, L3100.5700, L500.4050, L400.2010, L100.0100 #### [facility] [address] [place], [address] GLUCOSE, UR Normal Normal Normal [facility] Comment on above: Order Comment: Urine , Random Performed By: #### L 501.0900, L3100.5800, L3100.5700, L500.4050, L400.2010, L100.0100 #### [facility] [address] [place], [address] KETONE UR Negative Normal Negative [facility] Comment on above: Order Comment: Urine , Random Performed By: #### L 501.0900, L3100.5800, L3100.5700, L500.4050, L400.2010, L100.0100 #### [facility] [address] [place], [address] LEUK ESTERASE 25 /ul Abnormal Negative [facility] Comment on above: Order Comment: Urine , Random Performed By: #### L 501.0900, L3100.5800, L3100.5700, L500.4050, L400.2010, L100.0100 #### [facility] [address] [place], [address] Nitrite Ql (U) Negative Normal Negative [facility] Comment on above: Order Comment: Urine , Random Performed By: #### L 501.0900, L3100.5800, L3100.5700, L500.4050, L400.2010, L100.0100 #### [facility] [address] [place], [address] OCCULT BLOOD-UR Negative Normal Negative [facility] Comment on above: Order Comment: Urine , Random Performed By: #### L 501.0900, L3100.5800, L3100.5700, L500.4050, L400.2010, L100.0100 #### [facility] [address] [place], [address] pH UR 5.0 Normal 5.0 - 8.0 [facility] Comment on above: Order Comment: Urine , Random Performed By: #### L 501.0900, L3100.5800, L3100.5700, L500.4050, L400.2010, L100.0100 #### [facility] [address] [place], [address] PROT DIPSTX Negative Normal Negative [facility] Comment on above: Order Comment: Urine , Random Performed By: #### L 501.0900, L3100.5800, L3100.5700, L500.4050, L400.2010, L100.0100 #### [facility] [address] [place], [address] SP.GR. DIPSTX 1.030 Normal 1.002-1.030 [facility] Comment on above: Order Comment: Urine , Random Performed By: #### L 501.0900, L3100.5800, L3100.5700, L500.4050, L400.2010, L100.0100 #### [facility] [address] [place], [address] UROBILI Normal Normal Normal [facility] Comment on above: Order Comment: Urine , Random Performed By: #### L 501.0900, L3100.5800, L3100.5700, L500.4050, L400.2010, L100.0100 #### [facility] [address] [place], [address] Complement C3on 02-10-2024 COMP C3 126 mg/dL Normal 82-167 [facility] Comment on above: Result Comment: Perf ormed at: - [facility] [id number] Teacher Asst: Alex Barrow PhD, Phone: [phone] Performed By: #### L 501.0900, L100.0100, L3100.5800, L3100.5700, L500.4050, L400.2010 #### [facility] [address] [place], [address] Complement C4on 02-10-2024 COMPLEMENT, C4 30 mg/dL Normal 12-38 [facility] Comment on above: Performed By: #### L 501.0900, L100.0100, L3100.5800, L3100.5700, L500.4050, L400.2010 #### [facility] [place] [address], [address] Absolute lymphocyte countOrd ered By: China Barrow on 02-08-2024 Lymphocytes Auto (Unsp spec) [#/Vol] 2.10 10*3/uL 0.83-4.51 [facility] Automated lymphocyte count a s percentage of total leukocytesOrdered By: China Barrow on 02-08-2024 Lymphocytes/100 WBC Auto (Unsp spec) 24.1 % 19-41 [facility] Basophil percentageOrdered B y: China Barrow on 02-08-2024 Basophils/100 WBC (Bld) 0.3 % 0-1 [facility] Bilirubin [Mass/Vol] 0.30 mg/dL 0.20-1.00 [facility] Comment on above: For patients on eltr ombopag therapy, use of Dimension [place] TBIL is not recommended. Chloride [Moles/Vol] 109 mmol/L 98-107 [facility] Eosinophils/100 WBC (Bld) 1.0 % 0-5 [facility] Glucose [Mass/Vol] 102 mg/dL 74-106 [facility] Comment on above: Fasting Glucose resu lt from 100 to 125 mg/dL suggests IMPAIRED HOMEOSTASIS per A.D.A. criteria. Hemoglobin (Bld) [Mass/Vol] 13.2 g/dL 12.0-15.0 [facility] Monocytes/100 WBC (Bld) 5.7 % 0-10 [facility] Neutrophils (Bld) [#/Vol] 5.9 10*3/uL 2.0-7.7 [facility] Neutrophils/100 WBC (Bld) 68.3 % 47-70 [facility] Potassium [Moles/Vol] 4.0 mmol/L 3.5-5.1 [facility] Protein [Mass/Vol] 7.2 g/dL 6.4-8.2 [facility] Sodium [Moles/Vol] 142 mmol/L 136-145 [facility] WBC (Bld) [#/Vol] 8.7 10*3/uL 4.4-11.0 [facility] Bilirubin Test strip Ql (U)O rdered By: China Barrow on 02-08-2024 Bilirubin Ql (U) Negative Negative [facility] CBC W/Diff, Automatedon 01-11 Absolute Lymph 2.10 X10 3/uL Normal 0.83-4.51 [facility] Comment on above: Performed By: #### L 501.0900, L100.0100, L3100.5800, L3100.5700, L500.4050, L400.2010 #### [facility] [address] [place], [address] Absolute Neut 5.9 X10 3/uL Normal 2.0-7.7 [facility] Comment on above: Performed By: #### L 501.0900, L100.0100, L3100.5800, L3100.5700, L500.4050, L400.2010 #### [facility] [address] [place], [address] Basophils/100 WBC (Bld) 0.3 % Normal 0-1 [facility] Comment on above: Performed By: #### L 501.0900, L100.0100, L3100.5800, L3100.5700, L500.4050, L400.2010 #### [facility] [address] [place], [address] Eosinophils/100 WBC (Bld) 1.0 % Normal 0-5 [facility] Comment on above: Performed By: #### L 501.0900, L100.0100, L3100.5800, L3100.5700, L500.4050, L400.2010 #### [facility] [address] [place], [address] Erythrocyte distribution width (RBC) [Ratio] 13.5 % Normal 11.6-14.6 [facility] Comment on above: Performed By: #### L 501.0900, L100.0100, L3100.5800, L3100.5700, L500.4050, L400.2010 #### [facility] [address] [place], [address] Hematocrit (Bld) [Volume fraction] 40.3 % Normal 37-47 [facility] Comment on above: Performed By: #### L 501.0900, L100.0100, L3100.5800, L3100.5700, L500.4050, L400.2010 #### [facility] [address] [place], [address] Hemoglobin (Bld) [Mass/Vol] 13.2 g/dL Normal 12.0-15.0 [facility] Comment on above: Performed By: #### L 501.0900, L100.0100, L3100.5800, L3100.5700, L500.4050, L400.2010 #### [facility] [address] [place], [address] IG% 0.600 Normal 0.0-0.9 [facility] Comment on above: Result Comment: IG% - Immature Granulocytes (promyelocytes, myelocytes and metamyelocytes) > 1% indicates that a LEFT SHIFT is Present. Performed By: #### L 501.0900, L100.0100, L3100.5800, L3100.5700, L500.4050, L400.2010 #### [facility] [address] [place], [address] Lymphocytes/100 WBC (Bld) 24.1 % Normal 19-41 [facility] Comment on above: Performed By: #### L 501.0900, L100.0100, L3100.5800, L3100.5700, L500.4050, L400.2010 #### [facility] [address] [place], [address] MCH (RBC) [Entitic mass] 32.9 pg High 27.0-32.0 [facility] Comment on above: Performed By: #### L 501.0900, L100.0100, L3100.5800, L3100.5700, L500.4050, L400.2010 #### [facility] [address] [place], [address] MCHC (RBC) [Mass/Vol] 32.8 g/dL Normal 32-36 [facility] Comment on above: Performed By: #### L 501.0900, L100.0100, L3100.5800, L3100.5700, L500.4050, L400.2010 #### [facility] [address] [place], [address] MCV (RBC) [Entitic vol] 100.5 fL High 81-99 [facility] Comment on above: Performed By: #### L 501.0900, L100.0100, L3100.5800, L3100.5700, L500.4050, L400.2010 #### [facility] [address] [place], [address] Monocytes/100 WBC (Bld) 5.7 % Normal 0-10 [facility] Comment on above: Performed By: #### L 501.0900, L100.0100, L3100.5800, L3100.5700, L500.4050, L400.2010 #### [facility] [address] [place], [address] Neutrophils/100 WBC (Bld) 68.3 % Normal 47-70 [facility] Comment on above: Performed By: #### L 501.0900, L100.0100, L3100.5800, L3100.5700, L500.4050, L400.2010 #### [facility] [address] [place], [address] Nucleated RBC (Bld) [#/Vol] 0 10*3/uL Normal 0-5 [facility] Comment on above: Performed By: #### L 501.0900, L100.0100, L3100.5800, L3100.5700, L500.4050, L400.2010 #### [facility] [address] [place], [address] Platelet mean volume (Bld) [Entitic vol] 14.0 fL High 6.2-12.0 [facility] Comment on above: Performed By: #### L 501.0900, L100.0100, L3100.5800, L3100.5700, L500.4050, L400.2010 #### [facility] [address] [place], [address] Platelets (Bld) [#/Vol] 189 10*3/uL Normal 150-450 [facility] Comment on above: Performed By: #### L 501.0900, L100.0100, L3100.5800, L3100.5700, L500.4050, L400.2010 #### [facility] [address] [place], [address] RBC (Bld) [#/Vol] 4.01 10*6/uL Low 4.2-5.4 [facility] Comment on above: Performed By: #### L 501.0900, L100.0100, L3100.5800, L3100.5700, L500.4050, L400.2010 #### [facility] [address] [place], [address] RDW SD 50.5 fl High 35.1-43.9 [facility] Comment on above: Performed By: #### L 501.0900, L100.0100, L3100.5800, L3100.5700, L500.4050, L400.2010 #### [facility] [address] [place], [address] WBC (Bld) [#/Vol] 8.7 10*3/uL Normal 4.4-11.0 [facility] Comment on above: Performed By: #### L 501.0900, L100.0100, L3100.5800, L3100.5700, L500.4050, L400.2010 #### [facility] [address] [place], [address] Comprehensive Metabolic Prof ilon 02-08-2024 Albumin [Mass/Vol] 3.6 g/dL Normal 3.2-5.0 [facility] Comment on above: Performed By: #### L 501.0900, L100.0100, L3100.5800, L3100.5700, L500.4050, L400.2010 #### [facility] [address] [place], [address] Albumin/Globulin [Mass ratio] 1.0 {ratio} Normal 0.9-2.4 [facility] Comment on above: Performed By: #### L 501.0900, L100.0100, L3100.5800, L3100.5700, L500.4050, L400.2010 #### [facility] [address] [place], [address] ALK P 80 U/L Normal 45-117 [facility] Comment on above: Performed By: #### L 501.0900, L100.0100, L3100.5800, L3100.5700, L500.4050, L400.2010 #### [facility] [address] [place], [address] ALT [Catalytic activity/Vol] 28 U/L Normal 13-56 [facility] Comment on above: Performed By: #### L 501.0900, L100.0100, L3100.5800, L3100.5700, L500.4050, L400.2010 #### [facility] [address] [place], [address] AST [Catalytic activity/Vol] 29 U/L Normal 15-37 [facility] Comment on above: Performed By: #### L 501.0900, L100.0100, L3100.5800, L3100.5700, L500.4050, L400.2010 #### [facility] [address] [place], [address] Bilirubin [Mass/Vol] 0.30 mg/dL Normal 0.20-1.00 [facility] Comment on above: Result Comment: For patients on eltrombopag therapy, use of Dimension [place] TBIL is not recommended. Performed By: #### L 501.0900, L100.0100, L3100.5800, L3100.5700, L500.4050, L400.2010 #### [facility] [address] [place], [address] BUN/CRE 17.4 RATIO Normal 10-20 [facility] Comment on above: Performed By: #### L 501.0900, L100.0100, L3100.5800, L3100.5700, L500.4050, L400.2010 #### [facility] [address] [place], [address] CA,Total 8.9 mg/dL Normal 8.5-10.1 [facility] Comment on above: Performed By: #### L 501.0900, L100.0100, L3100.5800, L3100.5700, L500.4050, L400.2010 #### [facility] [address] [place], [address] Chloride [Moles/Vol] 109 mmol/L High 98-107 [facility] Comment on above: Performed By: #### L 501.0900, L100.0100, L3100.5800, L3100.5700, L500.4050, L400.2010 #### [facility] [address] [place], [address] CO2 [Moles/Vol] 27.0 mmol/L Normal 21.0-32.0 [facility] Comment on above: Performed By: #### L 501.0900, L100.0100, L3100.5800, L3100.5700, L500.4050, L400.2010 #### [facility] [address] [place], [address] Creatinine [Mass/Vol] 0.75 mg/dL Normal 0.55-1.02 [facility] Comment on above: Result Comment: The validity of the calculated GFR GFRAA in patients over 70 years has not been determined. Clinical correlation is essential. Performed By: #### L 501.0900, L100.0100, L3100.5800, L3100.5700, L500.4050, L400.2010 #### [facility] [address] [place], [place], [id number] (114) EST GFR - AA 100 mL/min Normal >60 [facility] Comment on above: Result Comment: Afri can Malagasy GFR Calc Performed By: #### L 501.0900, L100.0100, L3100.5800, L3100.5700, L500.4050, L400.2010 #### [facility] [address] [place], [address] GAP 6 Normal 5-15 [facility] Comment on above: Performed By: #### L 501.0900, L100.0100, L3100.5800, L3100.5700, L500.4050, L400.2010 #### [facility] [address] [place], [address] GFR/1.73 sq M.predicted among non-blacks MDRD (S/P/Bld) [Vol rate/Area] 83 mL/min/{1.73_m2} Normal >60 [facility] Comment on above: Result Comment: Non- GFR Calc Performed By: #### L 501.0900, L100.0100, L3100.5800, L3100.5700, L500.4050, L400.2010 #### [facility] [address] [place], [address] Globulin (S) [Mass/Vol] 3.6 g/dL Normal 2.2-4.2 [facility] Comment on above: Performed By: #### L 501.0900, L100.0100, L3100.5800, L3100.5700, L500.4050, L400.2010 #### [facility] [address] [place], [address] Glucose [Mass/Vol] 102 mg/dL Normal 74-106 [facility] Comment on above: Result Comment: Fast ing Glucose result from 100 to 125 mg/dL suggests IMPAIRED HOMEOSTASIS per A.D.A. criteria. Performed By: #### L 501.0900, L100.0100, L3100.5800, L3100.5700, L500.4050, L400.2010 #### [facility] [address] [place], [address] Potassium [Moles/Vol] 4.0 mmol/L Normal 3.5-5.1 [facility] Comment on above: Performed By: #### L 501.0900, L100.0100, L3100.5800, L3100.5700, L500.4050, L400.2010 #### [facility] [address] [place], [address] Sodium [Moles/Vol] 142 mmol/L Normal 136-145 [facility] Comment on above: Performed By: #### L 501.0900, L100.0100, L3100.5800, L3100.5700, L500.4050, L400.2010 #### [facility] [address] [place], [address] T PROT 7.2 g/dL Normal 6.4-8.2 [facility] Comment on above: Performed By: #### L 501.0900, L100.0100, L3100.5800, L3100.5700, L500.4050, L400.2010 #### [facility] [address] [place], [place], [address] Urea nitrogen [Mass/Vol] 13 mg/dL Normal 7-18 [facility] Comment on above: Performed By: #### L 501.0900, L100.0100, L3100.5800, L3100.5700, L500.4050, L400.2010 #### [facility] [address] [place], [place], [id number] Determination of erythrocyte mean corpuscular volume (MCV)Ordered By: China Barrow on 02-08-2024 MCV (RBC) [Entitic vol] 100.5 fL 81-99 [facility] Erythrocyte distribution wid th ratioOrdered By: China Barrow on 02-08-2024 Erythrocyte distribution width (RBC) [Ratio] 13.5 % 11.6-14.6 [facility] Erythrocyte distribution wid th standard deviationOrdered By: China Barrow on 02-08-2024 Erythrocyte distribution width (RBC) [Entitic vol] 50.5 fL 35.1-43.9 [facility] Hematocrit Auto (Bld) [Volum e fraction]Ordered By: China Barrow on 02-08-2024 Hematocrit (Bld) [Volume fraction] 40.3 % 37-47 [facility] Immature granulocytes/100 WB C Auto (Bld)Ordered By: China Barrow on 02-08-2024 Immature granulocytes/100 WBC (Bld) 0.600 % 0.0-0.9 [facility] Comment on above: IG% - Immature Granu locytes (promyelocytes, myelocytes and metamyelocytes) > 1% indicates that a LEFT SHIFT is Present. Ketones Test strip Ql (U)Ord ered By: China Barrow on 02-08-2024 Ketones Ql (U) Negative Negative [facility] - Chemistry and C hemistry - challengeOrdered By: China Barrow on 02-08-2024 Albumin/Globulin [Mass ratio] 1.0 {ratio} 0.9-2.4 [facility] ALP [Catalytic activity/Vol] 80 U/L 45-117 [facility] ALT [Catalytic activity/Vol] 28 U/L 13-56 [facility] CO2 [Moles/Vol] 27.0 mmol/L 21.0-32.0 [facility] Globulin (S) [Mass/Vol] 3.6 g/dL 2.2-4.2 [facility] Urea nitrogen/Creatinine [Mass ratio] 17.4 mg/mg 10-20 [facility] - Hematology and Cell countsOrdered By: China Barrow on 02-08-2024 MCH (RBC) [Entitic mass] 32.9 pg 27.0-32.0 [facility] MCHC (RBC) [Mass/Vol] 32.8 g/dL 32-36 [facility] Nucleated RBC/100 WBC (Bld) [Ratio] 0 % 0-5 [facility] Platelet mean volume (Bld) [Entitic vol] 14.0 fL 6.2-12.0 [facility] Platelets (Bld) [#/Vol] 189 10*3/uL 150-450 [facility] Nitrite Test strip Ql (U)Ord ered By: China Barrow on 02-08-2024 Nitrite Ql (U) Negative Negative [facility] No Panel InformationOrdered By: China Barrow on 02-08-2024 Complement C3 126 mg/dL 82-167 [facility] Comment on above: Performed at: [place] [id number] Director: Alex Barrow PhD, Phone: [phone] Estimated GFR (MDRD) Amer 100 mL/min >60 [facility] Comment on above: GFR Calc Estimated GFR (MDRD) Non-Af Amer 83 mL/min >60 [facility] Comment on above: Non- GFR Calc Protein Test strip Ql (U)Ord ered By: China Barrow on 02-08-2024 Protein Ql (U) Negative Negative [facility] Protein+Creatinine Ratio,Uri neon 02-08-2024 PROT:CRE RATIO 254 mg/g CRE High 0-200 [facility] Comment on above: Performed By: #### L 501.0900, L100.0100, L3100.5800, L3100.5700, L500.4050, L400.2010 #### [facility] [address] [place], [address] Protein (U) [Mass/Vol] 31.0 mg/dL High <11.9 [facility] Comment on above: Performed By: #### L 501.0900, L100.0100, L3100.5800, L3100.5700, L500.4050, L400.2010 #### [facility] [address] [place], [address] UR CREAT 122.00 mg/dL Normal NO RANGE EST. [facility] Comment on above: Performed By: #### L 501.0900, L100.0100, L3100.5800, L3100.5700, L500.4050, L400.2010 #### [facility] [address] [place], [address] RBC Auto (Bld) [#/Vol]Ordere d By: China Barrow on 02-08-2024 RBC (Bld) [#/Vol] 4.01 10*6/uL 4.2-5.4 [facility] Serum or plasma calcium skip urement (mass/volume)Ordered By: China Barrow on 02-08-2024 Calcium [Mass/Vol] 8.9 mg/dL 8.5-10.1 [facility] Serum or plasma complement C 4 measurement (mass/volume)Ordered By: China Barrow on 02-08-2024 Complement C4 [Mass/Vol] 30 mg/dL 12-38 [facility] Serum or plasma creatinine m easurement (mass/volume)Ordered By: China Barrow on 02-08-2024 Creatinine [Mass/Vol] 0.75 mg/dL 0.55-1.02 [facility] Comment on above: The validity of the calculated GFR & GFRAA in patients over 70 years has not been determined. Clinical correlation is essential. Serum or plasma urea nitroge n measurement (mass/volume)Ordered By: China Barrow on 02-08-2024 Urea nitrogen [Mass/Vol] 13 mg/dL 7-18 [facility] Thin prep Papanicolaou smear with manual screeningOrdered By: China Barrow on 02-08-2024 Protein (U) [Mass/Vol] 31.0 mg/dL 0.0-11.8 [facility] Thin prep Papanicolaou smear with manual screening 3.6 g/dL 3.2-5.0 [facility] Thin prep Papanicolaou smear with manual screening 29 U/L 15-37 [facility] Thin prep Papanicolaou smear with manual screening 6 5-15 [facility] Urinalysis, Routine (Dipstic k)on 02-08-2024 BILIRUBIN URINE Negative Normal Negative [facility] Comment on above: Order Comment: CLEAN CATCH Performed By: #### L 501.0900, L100.0100, L3100.5800, L3100.5700, L500.4050, L400.2010 #### [facility] [address] [place], [place], [id number] Clarity (U) Clear Normal Clear [facility] Comment on above: Order Comment: CLEAN CATCH Performed By: #### L 501.0900, L100.0100, L3100.5800, L3100.5700, L500.4050, L400.2010 #### [facility] [address] [place], [place], [id number] Color (U) Yellow Normal Yellow [facility] Comment on above: Order Comment: CLEAN CATCH Performed By: #### L 501.0900, L100.0100, L3100.5800, L3100.5700, L500.4050, L400.2010 #### [facility] [address] [place], [address] GLUCOSE, UR Normal Normal Normal [facility] Comment on above: Order Comment: CLEAN CATCH Performed By: #### L 501.0900, L100.0100, L3100.5800, L3100.5700, L500.4050, L400.2010 #### [facility] [address] [place], [address] KETONE UR Negative Normal Negative [facility] Comment on above: Order Comment: CLEAN CATCH Performed By: #### L 501.0900, L100.0100, L3100.5800, L3100.5700, L500.4050, L400.2010 #### [facility] [address] [place], [address] LEUK ESTERASE Negative Normal Negative [facility] Comment on above: Order Comment: CLEAN CATCH Performed By: #### L 501.0900, L100.0100, L3100.5800, L3100.5700, L500.4050, L400.2010 #### [facility] [address] [place], [address] Nitrite Ql (U) Negative Normal Negative [facility] Comment on above: Order Comment: CLEAN CATCH Performed By: #### L 501.0900, L100.0100, L3100.5800, L3100.5700, L500.4050, L400.2010 #### [facility] [address] [place], [address] OCCULT BLOOD-UR 10 /ul Abnormal Negative [facility] Comment on above: Order Comment: CLEAN CATCH Performed By: #### L 501.0900, L100.0100, L3100.5800, L3100.5700, L500.4050, L400.2010 #### [facility] [address] [place], [address] pH UR 5.0 Normal 5.0 - 8.0 [facility] Comment on above: Order Comment: CLEAN CATCH Performed By: #### L 501.0900, L100.0100, L3100.5800, L3100.5700, L500.4050, L400.2010 #### [facility] [address] [place], [place], [id number] PROT DIPSTX Negative Normal Negative [facility] Comment on above: Order Comment: CLEAN CATCH Performed By: #### L 501.0900, L100.0100, L3100.5800, L3100.5700, L500.4050, L400.2010 #### [facility] [address] [place], [place], [id number] SP.GR. DIPSTX 1.025 Normal 1.002-1.030 [facility] Comment on above: Order Comment: CLEAN CATCH Performed By: #### L 501.0900, L100.0100, L3100.5800, L3100.5700, L500.4050, L400.2010 #### [facility] [address] [place], [place], [id number] UROBILI Normal Normal Normal [facility] Comment on above: Order Comment: CLEAN CATCH Performed By: #### L 501.0900, L100.0100, L3100.5800, L3100.5700, L500.4050, L400.2010 #### [facility] [address] [place], [place], [id number] Urine blood detectionOrdered By: China Barrow on 02-08-2024 RBC Ql (U) 10 /ul Negative [facility] Urine clarityOrdered By: Rian Barrow on 02-08-2024 Clarity (U) Clear Clear [facility] Urine color determinationOrd ered By: China Barrow on 02-08-2024 Color (U) Yellow Yellow [facility] Urine creatinine measurement (mass/volume)Ordered By: China Barrow on 02-08-2024 Creatinine (U) [Mass/Vol] 122.00 mg/dL NO RANGE EST. [facility] Urine glucose detectionOrder ed By: China Barrow on 02-08-2024 Glucose Ql (U) Normal mg/dl Normal [facility] Urine leukocyte esterase det ection by dipstickOrdered By: China Barrow on 02-08-2024 Leukocyte esterase Test strip Ql (U) Negative Negative [facility] Urine pHOrdered By: China milleramandabailey on 02-08-2024 pH (U) 5.0 [pH] 5.0 - 8.0 [facility] Urine protein/creatinine mas s ratioOrdered By: China Barrow on 02-08-2024 Protein/Creatinine (U) [Mass ratio] 254 mg/g CRE 0-200 [facility] Urine specific gravity measu rementOrdered By: China Barrow on 02-08-2024 Specific gravity (U) [Rel density] 1.025 1.002-1.030 [facility] Urine urobilinogen measureme ntOrdered By: China Barrow on 02-08-2024 Urobilinogen Ql (U) Normal mg/dl Normal [facility] Absolute lymphocyte countOrd ered By: China Barrow on 10-12-2023 Lymphocytes Auto (Unsp spec) [#/Vol] 2.65 10*3/uL 0.83-4.51 [facility] Basophil percentageOrdered B y: China Barrow on 10-12-2023 Basophils/100 WBC (Bld) 0.4 % 0-1 [facility] Bilirubin [Mass/Vol] 0.20 mg/dL 0.20-1.00 [facility] Comment on above: For patients on eltr ombopag therapy, use of Dimension [place] TBIL is not recommended. Chloride [Moles/Vol] 108 mmol/L 98-107 [facility] Eosinophils/100 WBC (Bld) 1.3 % 0-5 [facility] Glucose [Mass/Vol] 96 mg/dL 74-106 [facility] Neutrophils (Bld) [#/Vol] 5.9 10*3/uL 2.0-7.7 [facility] Neutrophils/100 WBC (Bld) 63.3 % 47-70 [facility] Potassium [Moles/Vol] 3.9 mmol/L 3.5-5.1 [facility] Protein [Mass/Vol] 7.6 g/dL 6.4-8.2 [facility] Sodium [Moles/Vol] 140 mmol/L 136-145 [facility] WBC (Bld) [#/Vol] 9.4 10*3/uL 4.4-11.0 [facility] Bilirubin Test strip Ql (U)O rdered By: China Barrow on 10-12-2023 Bilirubin Ql (U) Negative Negative [facility] Blood erythrocytes count (nu mber/volume)Ordered By: China Barrow on 10-12-2023 RBC (Bld) [#/Vol] 3.97 10*6/uL 4.2-5.4 [facility] Blood hemoglobin measurement (mass/volume)Ordered By: China Barrow on 10-12-2023 Hemoglobin (Bld) [Mass/Vol] 13.0 g/dL 12.0-15.0 [facility] Blood lymphocytes/100 leukoc ytesOrdered By: China Barrow on 10-12-2023 Lymphocytes/100 WBC (Bld) 28.2 % 19-41 [facility] Blood monocytes/100 leukocyt esOrdered By: China Barrow on 10-12-2023 Monocytes/100 WBC (Bld) 6.4 % 0-10 [facility] Blood platelet mean volumeOr dered By: China Barrow on 10-12-2023 Platelet mean volume (Bld) [Entitic vol] 13.9 fL 6.2-12.0 [facility] Determination of erythrocyte mean corpuscular volume (MCV)Ordered By: China Barrow on 10-12-2023 MCV (RBC) [Entitic vol] 103.5 fL 81-99 [facility] Hematocrit Auto (Bld) [Volum e fraction]Ordered By: China Barrow on 10-12-2023 Hematocrit (Bld) [Volume fraction] 41.1 % 37-47 [facility] Ketones Test strip Ql (U)Ord ered By: China Barrow on 10-12-2023 Ketones Ql (U) Negative Negative [facility] - Chemistry and C hemistry - challengeOrdered By: Chian Barrow on 10-12-2023 ALP [Catalytic activity/Vol] 145 U/L 45-117 [facility] ALT [Catalytic activity/Vol] 60 U/L 13-56 [facility] CO2 [Moles/Vol] 27.0 mmol/L 21.0-32.0 [facility] Globulin (S) [Mass/Vol] 4.2 g/dL 2.2-4.2 [facility] Urea nitrogen/Creatinine [Mass ratio] 19.6 mg/mg 10-20 [facility] - Hematology and Cell countsOrdered By: China Barrow on 10-12-2023 Erythrocyte distribution width (RBC) [Entitic vol] 53.2 fL 35.1-43.9 [facility] Erythrocyte distribution width (RBC) [Ratio] 13.8 % 11.6-14.6 [facility] Immature granulocytes/100 WBC (Bld) 0.400 % 0.0-0.9 [facility] Comment on above: IG% - Immature Granu locytes (promyelocytes, myelocytes and metamyelocytes) > 1% indicates that a LEFT SHIFT is Present. MCH (RBC) [Entitic mass] 32.7 pg 27.0-32.0 [facility] Nucleated RBC/100 WBC (Bld) [Ratio] 0 % 0-5 [facility] MCHC Auto (RBC) [Mass/Vol]Or dered By: China Barrow on 10-12-2023 MCHC (RBC) [Mass/Vol] 31.6 g/dL 32-36 [facility] Nitrite Test strip Ql (U)Ord ered By: China Barrow on 10-12-2023 Nitrite Ql (U) Negative Negative [facility] No Panel InformationOrdered By: China Barrow on 10-12-2023 Estimated GFR (MDRD) Amer 98 mL/min >60 [facility] Comment on above: GFR Calc Estimated GFR (MDRD) Non-Af Amer 81 mL/min >60 [facility] Comment on above: Non- GFR Calc Platelets bldOrdered By: Rian Barrow on 10-12-2023 Platelets (Bld) [#/Vol] 276 10*3/uL 150-450 [facility] Protein Test strip Ql (U)Ord ered By: China Barrow on 10-12-2023 Protein Ql (U) Negative Negative [facility] Serum or plasma albumin skip urement (mass/volume)Ordered By: China Barrow on 10-12-2023 Albumin [Mass/Vol] 3.4 g/dL 3.2-5.0 [facility] Serum or plasma albumin/glob ulin mass ratioOrdered By: China Barrow on 10-12-2023 Albumin/Globulin [Mass ratio] 0.8 {ratio} 0.9-2.4 [facility] Serum or plasma calcium skip urement (mass/volume)Ordered By: China Barrow on 10-12-2023 Calcium [Mass/Vol] 8.6 mg/dL 8.5-10.1 [facility] Serum or plasma complement C 3 measurement (mass/volume)Ordered By: China Barrow on 10-12-2023 Complement C3 [Mass/Vol] 136 mg/dL 82-167 [facility] Comment on above: Performed at: [address] [id number] Director: Alex Barrow PhD, Phone: [phone] Serum or plasma complement C 4 measurement (mass/volume)Ordered By: China Barrow on 10-12-2023 Complement C4 [Mass/Vol] 32 mg/dL 12-38 [facility] Serum or plasma creatinine m easurement (mass/volume)Ordered By: China Barrow on 10-12-2023 Creatinine [Mass/Vol] 0.77 mg/dL 0.55-1.02 [facility] Comment on above: The validity of the calculated GFR & GFRAA in patients over 70 years has not been determined. Clinical correlation is essential. Serum or plasma urea nitroge n measurement (mass/volume)Ordered By: China Barrow on 10-12-2023 Urea nitrogen [Mass/Vol] 15 mg/dL 7-18 [facility] Thin prep Papanicolaou smear with manual screeningOrdered By: China Barrow on 10-12-2023 Thin prep Papanicolaou smear with manual screening 35 U/L 15-37 [facility] Thin prep Papanicolaou smear with manual screening 5 5-15 [facility] Urine blood detectionOrdered By: China Barrow on 10-12-2023 RBC Ql (U) Negative Negative [facility] Urine clarityOrdered By: Rian Barrow on 10-12-2023 Clarity (U) Clear Clear [facility] Urine color determinationOrd ered By: China Barrow on 10-12-2023 Color (U) Yellow Yellow [facility] Urine creatinine measurement (mass/volume)Ordered By: China Barrow on 10-12-2023 Creatinine (U) [Mass/Vol] 132.00 mg/dL NO RANGE EST. [facility] Urine glucose detectionOrder ed By: China Barrow on 10-12-2023 Glucose Ql (U) Normal mg/dl Normal [facility] Urine leukocyte esterase det ection by dipstickOrdered By: China Barrow on 10-12-2023 Leukocyte esterase Test strip Ql (U) Negative Negative [facility] Urine pHOrdered By: China claire on 10-12-2023 pH (U) 6.0 [pH] 5.0 - 8.0 [facility] Urine protein measurement (m ass/volume)Ordered By: China Barrow on 10-12-2023 Protein (U) [Mass/Vol] 38.8 mg/dL 0.0-11.8 [facility] Urine protein/creatinine mas s ratioOrdered By: China Barrow on 10-12-2023 Protein/Creatinine (U) [Mass ratio] 294 mg/g CRE 0-200 [facility] Urine specific gravity measu rementOrdered By: China Barrow on 10-12-2023 Specific gravity (U) [Rel density] 1.025 1.002-1.030 [facility] Urobilinogen Auto test strip Ql (U)Ordered By: China Barrow on 10-12-2023 Urobilinogen Ql (U) Normal mg/dl Normal [facility] Absolute lymphocyte countOrd ered By: China Barrow on 09-13-2023 Lymphocytes Auto (Unsp spec) [#/Vol] 2.15 10*3/uL 0.83-4.51 [facility] Basophil percentageOrdered B y: China Barrow on 09-13-2023 Basophils/100 WBC (Bld) 0.5 % 0-1 [facility] Bilirubin [Mass/Vol] 0.20 mg/dL 0.20-1.00 [facility] Comment on above: For patients on eltr ombopag therapy, use of Dimension [place] TBIL is not recommended. Chloride [Moles/Vol] 106 mmol/L 98-107 [facility] Eosinophils/100 WBC (Bld) 1.2 % 0-5 [facility] Glucose [Mass/Vol] 125 mg/dL 74-106 [facility] Comment on above: Fasting Glucose resu lt from 100 to 125 mg/dL suggests IMPAIRED HOMEOSTASIS per A.D.A. criteria. Neutrophils (Bld) [#/Vol] 7.0 10*3/uL 2.0-7.7 [facility] Neutrophils/100 WBC (Bld) 69.8 % 47-70 [facility] Potassium [Moles/Vol] 3.7 mmol/L 3.5-5.1 [facility] Protein [Mass/Vol] 7.4 g/dL 6.4-8.2 [facility] Sodium [Moles/Vol] 141 mmol/L 136-145 [facility] WBC (Bld) [#/Vol] 10.0 10*3/uL 4.4-11.0 [facility] Bilirubin Test strip Ql (U)O rdered By: China Barrow on 09-13-2023 Bilirubin Ql (U) 1 mg/dL Negative [facility] Comment on above: COLOR OF URINE MAY A FFECT DIPSTICK RESULTS. Blood erythrocytes count (nu mber/volume)Ordered By: China Barrow on 09-13-2023 RBC (Bld) [#/Vol] 4.19 10*6/uL 4.2-5.4 [facility] Blood hemoglobin measurement (mass/volume)Ordered By: China Barrow on 09-13-2023 Hemoglobin (Bld) [Mass/Vol] 13.5 g/dL 12.0-15.0 [facility] Blood lymphocytes/100 leukoc ytesOrdered By: China Barrow on 09-13-2023 Lymphocytes/100 WBC (Bld) 21.5 % 19-41 [facility] Blood monocytes/100 leukocyt esOrdered By: China Barrow on 09-13-2023 Monocytes/100 WBC (Bld) 6.6 % 0-10 [facility] Blood platelet mean volumeOr dered By: China Barrow on 09-13-2023 Platelet mean volume (Bld) [Entitic vol] 14.0 fL 6.2-12.0 [facility] Determination of erythrocyte mean corpuscular volume (MCV)Ordered By: China Barrow on 09-13-2023 MCV (RBC) [Entitic vol] 101.2 fL 81-99 [facility] Hematocrit Auto (Bld) [Volum e fraction]Ordered By: China Barrow on 09-13-2023 Hematocrit (Bld) [Volume fraction] 42.4 % 37-47 [facility] Ketones Test strip Ql (U)Ord ered By: Chnia Barrow on 09-13-2023 Ketones Ql (U) Negative Negative [facility] Laboratory - Chemistry and C hemistry - challengeOrdered By: China Barrow on 09-13-2023 ALP [Catalytic activity/Vol] 91 U/L 45-117 [facility] ALT [Catalytic activity/Vol] 44 U/L 13-56 [facility] CO2 [Moles/Vol] 28.0 mmol/L 21.0-32.0 [facility] Globulin (S) [Mass/Vol] 3.8 g/dL 2.2-4.2 [facility] Urea nitrogen/Creatinine [Mass ratio] 18.8 mg/mg 10-20 [facility] - Hematology and Cell countsOrdered By: China Barrow on 09-13-2023 Erythrocyte distribution width (RBC) [Entitic vol] 50.8 fL 35.1-43.9 [facility] Erythrocyte distribution width (RBC) [Ratio] 13.6 % 11.6-14.6 [facility] Immature granulocytes/100 WBC (Bld) 0.400 % 0.0-0.9 [facility] Comment on above: IG% - Immature Granu locytes (promyelocytes, myelocytes and metamyelocytes) > 1% indicates that a LEFT SHIFT is Present. MCH (RBC) [Entitic mass] 32.2 pg 27.0-32.0 [facility] Nucleated RBC/100 WBC (Bld) [Ratio] 0 % 0-5 [facility] MCHC Auto (RBC) [Mass/Vol]Or dered By: China Barrow on 09-13-2023 MCHC (RBC) [Mass/Vol] 31.8 g/dL 32-36 [facility] Nitrite Test strip Ql (U)Ord ered By: China Barrow on 09-13-2023 Nitrite Ql (U) Negative Negative [facility] No Panel InformationOrdered By: Cihna Barrow on 09-13-2023 Estimated GFR (MDRD) Amer 101 mL/min >60 [facility] Comment on above: GFR Calc Estimated GFR (MDRD) Non-Af Amer 84 mL/min >60 [facility] Comment on above: Non- GFR Calc Platelets bldOrdered By: Rian Barrow on 09-13-2023 Platelets (Bld) [#/Vol] 200 10*3/uL 150-450 [facility] Protein Test strip Ql (U)Ord ered By: China Barrow on 09-13-2023 Protein Ql (U) 15 mg/dl Negative [facility] Serum or plasma albumin skip urement (mass/volume)Ordered By: China Barrow on 09-13-2023 Albumin [Mass/Vol] 3.6 g/dL 3.2-5.0 [facility] Serum or plasma albumin/glob ulin mass ratioOrdered By: China Barrow on 09-13-2023 Albumin/Globulin [Mass ratio] 0.9 {ratio} 0.9-2.4 [facility] Serum or plasma calcium skip urement (mass/volume)Ordered By: China Barrow on 09-13-2023 Calcium [Mass/Vol] 9.0 mg/dL 8.5-10.1 [facility] Serum or plasma creatinine m easurement (mass/volume)Ordered By: China Barrow on 09-13-2023 Creatinine [Mass/Vol] 0.74 mg/dL 0.55-1.02 [facility] Comment on above: The validity of the calculated GFR & GFRAA in patients over 70 years has not been determined. Clinical correlation is essential. Serum or plasma urea nitroge n measurement (mass/volume)Ordered By: China Barrow on 09-13-2023 Urea nitrogen [Mass/Vol] 14 mg/dL 7-18 [facility] Thin prep Papanicolaou smear with manual screeningOrdered By: China Barrow on 09-13-2023 Thin prep Papanicolaou smear with manual screening 31 U/L 15-37 [facility] Thin prep Papanicolaou smear with manual screening 7 5-15 [facility] Urine blood detectionOrdered By: China Barrow on 09-13-2023 RBC Ql (U) Negative Negative [facility] Urine clarityOrdered By: Rian Barrow on 09-13-2023 Clarity (U) Clear Clear [facility] Urine color determinationOrd ered By: China Barrow on 09-13-2023 Color (U) Yellow Yellow [facility] Urine creatinine measurement (mass/volume)Ordered By: China Barrow on 09-13-2023 Creatinine (U) [Mass/Vol] 207.00 mg/dL NO RANGE EST. [facility] Urine glucose detectionOrder ed By: China Barrow on 09-13-2023 Glucose Ql (U) Normal mg/dl Normal [facility] Urine leukocyte esterase det ection by dipstickOrdered By: China Barrow on 09-13-2023 Leukocyte esterase Test strip Ql (U) Negative Negative [facility] Urine pHOrdered By: China claire on 09-13-2023 pH (U) 5.0 [pH] 5.0 - 8.0 [facility] Urine protein measurement (m ass/volume)Ordered By: China Barrow on 09-13-2023 Protein (U) [Mass/Vol] 86.6 mg/dL 0.0-11.8 [facility] Urine protein/creatinine mas s ratioOrdered By: China Barrow on 09-13-2023 Protein/Creatinine (U) [Mass ratio] 418 mg/g CRE 0-200 [facility] Urine specific gravity measu rementOrdered By: China Barrow on 09-13-2023 Specific gravity (U) [Rel density] 1.030 1.002-1.030 [facility] Urobilinogen Auto test strip Ql (U)Ordered By: China Barrow on 09-13-2023 Urobilinogen Ql (U) Normal mg/dl Normal [facility] Absolute lymphocyte countOrd ered By: Dr. Barrow on 03-09-2023 Lymphocytes Auto (Unsp spec) [#/Vol] 2.10 10*3/uL 0.83-4.51 [facility] Basophil percentageOrdered B y: Dr. Barrow on 03-09-2023 Basophils/100 WBC (Bld) 0.4 % 0-1 [facility] Bilirubin [Mass/Vol] 0.20 mg/dL 0.20-1.00 [facility] Comment on above: For patients on eltr ombopag therapy, use of Dimension [place] TBIL is not recommended. Chloride [Moles/Vol] 110 mmol/L 98-107 [facility] Eosinophils/100 WBC (Bld) 1.7 % 0-5 [facility] Glucose [Mass/Vol] 99 mg/dL 74-106 [facility] Neutrophils (Bld) [#/Vol] 4.3 10*3/uL 2.0-7.7 [facility] Neutrophils/100 WBC (Bld) 60.7 % 47-70 [facility] Potassium [Moles/Vol] 4.0 mmol/L 3.5-5.1 [facility] Protein [Mass/Vol] 7.1 g/dL 6.4-8.2 [facility] Sodium [Moles/Vol] 139 mmol/L 136-145 [facility] WBC (Bld) [#/Vol] 7.0 10*3/uL 4.4-11.0 [facility] Bilirubin Test strip Ql (U)O rdered By: Dr. Barrow on 03-09-2023 Bilirubin Ql (U) Negative Negative [facility] Blood erythrocytes count (nu mber/volume)Ordered By: Dr. Barrow on 03-09-2023 RBC (Bld) [#/Vol] 4.06 10*6/uL 4.2-5.4 [facility] Blood hemoglobin measurement (mass/volume)Ordered By: Dr. Barrow on 03-09-2023 Hemoglobin (Bld) [Mass/Vol] 13.6 g/dL 12.0-15.0 [facility] Blood lymphocytes/100 leukoc ytesOrdered By: Dr. Barrow on 03-09-2023 Lymphocytes/100 WBC (Bld) 29.8 % 19-41 [facility] Blood monocytes/100 leukocyt esOrdered By: Dr. Barrow on 03-09-2023 Monocytes/100 WBC (Bld) 7.1 % 0-10 [facility] Blood platelet mean volumeOr dered By: Dr. Barrow on 03-09-2023 Platelet mean volume (Bld) [Entitic vol] 14.5 fL 6.2-12.0 [facility] Determination of erythrocyte mean corpuscular volume (MCV)Ordered By: Dr. Barrow on 03-09-2023 MCV (RBC) [Entitic vol] 102.5 fL 81-99 [facility] Hematocrit Auto (Bld) [Volum e fraction]Ordered By: Dr. Barrow on 03-09-2023 Hematocrit (Bld) [Volume fraction] 41.6 % 37-47 [facility] Ketones Test strip Ql (U)Ord ered By: Dr. Barrow on 03-09-2023 Ketones Ql (U) Negative Negative [facility] Laboratory - Chemistry and C hemistry - challengeOrdered By: Dr. Barrow on 03-09-2023 ALP [Catalytic activity/Vol] 95 U/L 45-117 [facility] ALT [Catalytic activity/Vol] 37 U/L 13-56 [facility] CO2 [Moles/Vol] 27.0 mmol/L 21.0-32.0 [facility] Globulin (S) [Mass/Vol] 3.1 g/dL 2.2-4.2 [facility] Urea nitrogen/Creatinine [Mass ratio] 25.4 mg/mg 10-20 [facility] - Hematology and Cell countsOrdered By: Dr. Barrow on 03-09-2023 Erythrocyte distribution width (RBC) [Entitic vol] 50.1 fL 35.1-43.9 [facility] Erythrocyte distribution width (RBC) [Ratio] 13.2 % 11.6-14.6 [facility] Immature granulocytes/100 WBC (Bld) 0.300 % 0.0-0.9 [facility] Comment on above: IG% - Immature Granu locytes (promyelocytes, myelocytes and metamyelocytes) > 1% indicates that a LEFT SHIFT is Present. MCH (RBC) [Entitic mass] 33.5 pg 27.0-32.0 [facility] Nucleated RBC/100 WBC (Bld) [Ratio] 0 % 0-5 [facility] MCHC Auto (RBC) [Mass/Vol]Or dered By: Dr. Barrow on 03-09-2023 MCHC (RBC) [Mass/Vol] 32.7 g/dL 32-36 [facility] Nitrite Test strip Ql (U)Ord ered By: Dr. Barrow on 03-09-2023 Nitrite Ql (U) Negative Negative [facility] No Panel InformationOrdered By: Dr. Barrow on 03-09-2023 Estimated GFR (MDRD) Amer 115 mL/min >60 [facility] Comment on above: GFR Calc Estimated GFR (MDRD) Non-Af Amer 95 mL/min >60 [facility] Comment on above: Non- GFR Calc Platelets bldOrdered By: Dr. Barrow on 03-09-2023 Platelets (Bld) [#/Vol] 155 10*3/uL 150-450 [facility] Protein Test strip Ql (U)Ord ered By: Dr. Barrow on 03-09-2023 Protein Ql (U) Negative Negative [facility] Serum or plasma albumin skip urement (mass/volume)Ordered By: Dr. Barrow on 03-09-2023 Albumin [Mass/Vol] 4.0 g/dL 3.2-5.0 [facility] Serum or plasma albumin/glob ulin mass ratioOrdered By: Dr. Barrow on 03-09-2023 Albumin/Globulin [Mass ratio] 1.3 {ratio} 0.9-2.4 [facility] Serum or plasma calcium skip urement (mass/volume)Ordered By: Dr. Barrow on 03-09-2023 Calcium [Mass/Vol] 8.8 mg/dL 8.5-10.1 [facility] Serum or plasma creatinine m easurement (mass/volume)Ordered By: Dr. Barrow on 03-09-2023 Creatinine [Mass/Vol] 0.67 mg/dL 0.55-1.02 [facility] Comment on above: The validity of the calculated GFR & GFRAA in patients over 70 years has not been determined. Clinical correlation is essential. Serum or plasma urea nitroge n measurement (mass/volume)Ordered By: Dr. Barrow on 03-09-2023 Urea nitrogen [Mass/Vol] 17 mg/dL 7-18 [facility] Thin prep Papanicolaou smear with manual screeningOrdered By: Dr. Barrow on 03-09-2023 Thin prep Papanicolaou smear with manual screening 29 U/L 15-37 [facility] Thin prep Papanicolaou smear with manual screening 2 5-15 [facility] Urine blood detectionOrdered By: Dr. Barrow on 03-09-2023 RBC Ql (U) Negative Negative [facility] Urine clarityOrdered By: Dr. Barrow on 03-09-2023 Clarity (U) Clear Clear [facility] Urine color determinationOrd ered By: Dr. Barrow on 03-09-2023 Color (U) Yellow Yellow [facility] Urine creatinine measurement (mass/volume)Ordered By: Dr. Barrow on 03-09-2023 Creatinine (U) [Mass/Vol] 127.00 mg/dL NO RANGE EST. [facility] Urine glucose detectionOrder ed By: Dr. Barrow on 03-09-2023 Glucose Ql (U) Normal mg/dl Normal [facility] Urine leukocyte esterase det ection by dipstickOrdered By: Dr. Barrow on 03-09-2023 Leukocyte esterase Test strip Ql (U) 25 /ul Negative [facility] Urine pHOrdered By: Dr. Alberto hardy on 03-09-2023 pH (U) 6.0 [pH] 5.0 - 8.0 [facility] Urine protein measurement (m ass/volume)Ordered By: Dr. Barrow on 03-09-2023 Protein (U) [Mass/Vol] 37.0 mg/dL 0.0-11.8 [facility] Urine protein/creatinine mas s ratioOrdered By: Dr. Barrow on 03-09-2023 Protein/Creatinine (U) [Mass ratio] 291 mg/g CRE 0-200 [facility] Urine specific gravity measu rementOrdered By: Dr. Barrow on 03-09-2023 Specific gravity (U) [Rel density] 1.025 1.002-1.030 [facility] Urobilinogen Auto test strip Ql (U)Ordered By: Dr. Barrow on 03-09-2023 Urobilinogen Ql (U) Normal mg/dl Normal [facility] SHANTI SCREENING W TOMOon 10-26 SHANTI SCREENING W ISAC * * *Final Report* * * DATE OF EXAM: Oct 26 2022 2:44PM [id number] - SHANTI SCREENING W ISAC / PROCEDURE REASON: screening, Z12.31 * * * * Physician Interpretation * * * * RESULT: #[id number] - SHANTI SCREENING W ISAC BILATERAL DIGITAL SCREENING MAMMOGRAM TOMOSYNTHESIS WITH CAD: 10/26/2022 HISTORY: Screening, Z11.11 /Screening Mammogram with ISAC - patient reports NO breast symptoms /priors available for comparison. RESULT: TECHNIQUE: The study was acquired using full field digital technology and interpreted from soft copy. Digital Breast Tomosynthesis (DBT) images were obtained and used to assist in the interpretation of this examination. Current study was also evaluated with a Computer Aided Detection (CAD). Comparison is made to exams dated: 09/01/2021 mammogram, 07/23/2019 mammogram - [facility], and 07/09/2019 mammogram - [facility]. The tissue of both breasts is heterogeneously dense. This may lower the sensitivity of mammography. No significant masses, calcifications, or other findings are seen in either breast. There has been no significant interval change. IMPRESSION: NEGATIVE There is no mammographic evidence of malignancy. A 1 year screening mammogram is recommended. Ivett Gonzalez M.D. fa/penrad:10/27/2022 10:31:28 Summer Clerk(s): RT Alina(Scott)(M), [facility] letter sent: Normal over 40 Mammogram BI-RADS: 1 Negative Multiple national specialty organizations have released breast cancer screening guidelines for women at average risk for developing breast cancer - guidelines that are based on both evidence and opinion, yet differ on when to start and how often to screen for breast cancer. With representation from Breast Imaging, Internal Medicine, Women's Health, Family Medicine, and Medical/Surgical Oncology, the [facility] has carefully reviewed the data and reached the following consensus: 1) All women should engage in shared decision-making with their providers to decide when to start and how often to screen; 2) All women should have the opportunity to start screening mammography at age 40; 3) For women ages 45-55, we recommend annual screening mammograms; 4) For women ages 55 and over, we support both the transition from an annual to a biennial interval if this aligns more with patient's values and preferences, or continuation with annual screening; 5) All women should discuss with their providers when to stop screening mammograms. Force Dispatcher: Asiya Transcribe Date/Time: Oct 26 2022 2:33P Dictated by: IVETT GONZALEZ MD This examination was interpreted and the report reviewed and electronically signed by: IVETT GONZALEZ MD on Oct 27 2022 10:31AM EST [id number] CN Normal [facility] Absolute lymphocyte counton 09-07-2022 Lymphocytes Auto (Unsp spec) [#/Vol] 1.73 10*3/uL 0.83-4.51 [facility] Work Phone: Basophil percentageon 2021 Basophils/100 WBC (Bld) 0.3 % 0-1 [facility] Work Phone: Bilirubin [Mass/Vol] 0.30 mg/dL 0.20-1.00 [facility] Work Phone: Comment on above: For patients on eltr ombopag therapy, use of [employer] [place] TBIL is not recommended. Chloride [Moles/Vol] 110 mmol/L 98-107 [facility] Work Phone: Eosinophils/100 WBC (Bld) 1.4 % 0-5 [facility] Work Phone: Glucose [Mass/Vol] 139 mg/dL 74-106 [facility] Work Phone: Comment on above: Fasting Glucose resu lt greater than or equal to 126 mg/dL suggests DIABETES MELLITUS per A.D.A. criteria. Neutrophils (Bld) [#/Vol] 5.0 10*3/uL 2.0-7.7 [facility] Work Phone: Neutrophils/100 WBC (Bld) 68.7 % 47-70 [facility] Work Phone: Potassium [Moles/Vol] 3.8 mmol/L 3.5-5.1 [facility] Work Phone: Protein [Mass/Vol] 7.0 g/dL 6.4-8.2 [facility] Work Phone: Sodium [Moles/Vol] 143 mmol/L 136-145 [facility] Work Phone: WBC (Bld) [#/Vol] 7.3 10*3/uL 4.4-11.0 [facility] Work Phone: Bilirubin Test strip Ql (U)o n 09-07-2022 Bilirubin Ql (U) Negative Negative [facility] Work Phone: Blood erythrocytes count (nu mber/volume)on 09-07-2022 RBC (Bld) [#/Vol] 3.96 10*6/uL 4.2-5.4 [facility] Work Phone: Blood hemoglobin measurement (mass/volume)on 09-07-2022 Hemoglobin (Bld) [Mass/Vol] 13.5 g/dL 12.0-15.0 [facility] Work Phone: Blood lymphocytes/100 leukoc yteson 09-07-2022 Lymphocytes/100 WBC (Bld) 23.6 % 19-41 [facility] Work Phone: Blood monocytes/100 leukocyt eson 09-07-2022 Monocytes/100 WBC (Bld) 5.6 % 0-10 [facility] Work Phone: Blood platelet mean volumeon 09-07-2022 Platelet mean volume (Bld) [Entitic vol] 14.4 fL 6.2-12.0 [facility] Work Phone: Determination of erythrocyte mean corpuscular volume (MCV)on 09-07-2022 MCV (RBC) [Entitic vol] 99.0 fL 81-99 [facility] Work Phone: Hematocrit Auto (Bld) [Volum e fraction]on 09-07-2022 Hematocrit (Bld) [Volume fraction] 39.2 % 37-47 [facility] Work Phone: Ketones Test strip Ql (U)on 09-07-2022 Ketones Ql (U) Negative Negative [facility] Work Phone: Laboratory - Chemistry and C hemistry - challengeon 09-07-2022 ALP [Catalytic activity/Vol] 77 U/L 45-117 [facility] Work Phone: ALT [Catalytic activity/Vol] 32 U/L 13-56 [facility] Work Phone: CO2 [Moles/Vol] 28.0 mmol/L 21.0-32.0 [facility] Work Phone: Globulin (S) [Mass/Vol] 3.4 g/dL 2.2-4.2 [facility] Work Phone: Urea nitrogen/Creatinine [Mass ratio] 20.9 mg/mg 10-20 [facility] Work Phone: Laboratory - Hematology and Cell countson 09-07-2022 Erythrocyte distribution width (RBC) [Entitic vol] 47.6 fL 35.1-43.9 [facility] Work Phone: Erythrocyte distribution width (RBC) [Ratio] 13.1 % 11.6-14.6 [facility] Work Phone: Immature granulocytes/100 WBC (Bld) 0.400 % 0.0-0.9 [facility] Work Phone: Comment on above: IG% - Immature Granu locytes (promyelocytes, myelocytes and metamyelocytes) > 1% indicates that a LEFT SHIFT is Present. MCH (RBC) [Entitic mass] 34.1 pg .0-32.0 [facility] Work Phone: Nucleated RBC/100 WBC (Bld) [Ratio] 0 % 0-5 [facility] Work Phone: MCHC Auto (RBC) [Mass/Vol]on 09-07-2022 MCHC (RBC) [Mass/Vol] 34.4 g/dL 32-36 [facility] Work Phone: Nitrite Test strip Ql (U)on 09-07-2022 Nitrite Ql (U) Negative Negative [facility] Work Phone: No Panel Informationon 09-07 Estimated GFR (MDRD) Amer 98 mL/min >60 [facility] Work Phone: Comment on above: GFR Calc Estimated GFR (MDRD) Non-Af Amer 81 mL/min >60 [facility] Work Phone: Comment on above: Non- GFR Calc Platelets bldon 09-07-2022 Platelets (Bld) [#/Vol] 166 10*3/uL 150-450 [facility] Work Phone: Protein Test strip Ql (U)on 09-07-2022 Protein Ql (U) Negative Negative [facility] Work Phone: Serum or plasma albumin skip urement (mass/volume)on 09-07-2022 Albumin [Mass/Vol] 3.6 g/dL 3.2-5.0 [facility] Work Phone: Serum or plasma albumin/glob ulin mass ratioon 09-07-2022 Albumin/Globulin [Mass ratio] 1.1 {ratio} 0.9-2.4 [facility] Work Phone: Serum or plasma calcium skip urement (mass/volume)on 09-07-2022 Calcium [Mass/Vol] 9.1 mg/dL 8.5-10.1 [facility] Work Phone: Serum or plasma creatinine m easurement (mass/volume)on 09-07-2022 Creatinine [Mass/Vol] 0.76 mg/dL 0.55-1.02 [facility] Work Phone: Comment on above: The validity of the calculated GFR & GFRAA in patients over 70 years has not been determined. Clinical correlation is essential. Serum or plasma urea nitroge n measurement (mass/volume)on 09-07-2022 Urea nitrogen [Mass/Vol] 16 mg/dL 7-18 [facility] Work Phone: Thin prep Papanicolaou smear with manual screeningon 09-07-2022 Thin prep Papanicolaou smear with manual screening 23 U/L 15-37 [facility] Work Phone: Thin prep Papanicolaou smear with manual screening 5 5-15 [facility] Work Phone: Urine blood detectionon 08-13 RBC Ql (U) Negative Negative [facility] Work Phone: Urine clarityon 09-07-2022 Clarity (U) Clear Clear [facility] Work Phone: Urine color determinationon 09-07-2022 Color (U) Yellow Yellow [facility] Work Phone: Urine creatinine measurement (mass/volume)on 09-07-2022 Creatinine (U) [Mass/Vol] 160.00 mg/dL NO RANGE EST. [facility] Work Phone: Urine glucose detectionon Glucose Ql (U) Normal mg/dl Normal [facility] Work Phone: Urine leukocyte esterase det ection by dipstickon 09-07-2022 Leukocyte esterase Test strip Ql (U) 25 /ul Negative [facility] Work Phone: Urine pHon 09-07-2022 pH (U) 5.0 [pH] 5.0 - 8.0 [facility] Work Phone: Urine protein measurement (m ass/volume)on 09-07-2022 Protein (U) [Mass/Vol] 55.0 mg/dL 0.0-11.8 [facility] Work Phone: Urine protein/creatinine mas s ratioon 09-07-2022 Protein/Creatinine (U) [Mass ratio] 344 mg/g CRE 0-200 [facility] Work Phone: Urine specific gravity measu rementon 09-07-2022 Specific gravity (U) [Rel density] 1.030 1.002-1.030 [facility] Work Phone: Urobilinogen Auto test strip Ql (U)on 09-07-2022 Urobilinogen Ql (U) Normal mg/dl Normal [facility] Work Phone: Cervical or vagninal specime n microscopic examination by cytology stain (reported ason 08-17-2022 Cytology report Cyto stain Doc (Cvx/Vag) Comment . [facility] Work Phone: Comment on above: The Pap smear is a s creening test designed to aid in thedetection of premalignant and malignant conditions of theuterine cervix. It is not a diagnostic procedure andshould not be used as the sole means of detecting cervicalcancer. Both false-positive and false-negative reports dooccur. Laboratory - Cytologyon [employer] Agent Cyto stain Nom (Cvx/Vag) [ID] Comment . [facility] Work Phone: Comment on above: Pritesh Nugent totechnologist (ASCP) Pathologist Cyto stain Nom (Cvx/Vag) [ID] Comment . [facility] Work Phone: Comment on above: Alex Norton MD, Pa thologist Laboratory - Miscellaneous t estson 08-17-2022 Service comment (Unsp spec) [Interp] Comment . [facility] Work Phone: Comment on above: This liquid based Th inPrep(R) pap test was screened withthe use of an image guided system. Service comment (Unsp spec) [Interp] . . [facility] Work Phone: No Panel Informationon 08-17 Pap Smear Additional Comments 30-65 . [facility] Work Phone: Pathology report final diagnosis Narrative Comment . [facility] Work Phone: Comment on above: NEGATIVE FOR INTRAEP ITHELIAL LESION OR MALIGNANCY.REACTIVE CELLULAR CHANGES AND/OR REPAIR ARE PRESENT.CELLULAR CHANGES ASSOCIATED WITH ATROPHY ARE PRESENT. Absolute lymphocyte counton 03-10-2022 Lymphocytes Auto (Unsp spec) [#/Vol] 2.09 10*3/uL 0.83-4.51 [facility] Work Phone: Basophil percentageon 2021 Basophils/100 WBC (Bld) 0.4 % 0-1 [facility] Work Phone: Bilirubin [Mass/Vol] 0.30 mg/dL 0.20-1.00 [facility] Work Phone: Comment on above: For patients on eltr ombopag therapy, use of [employer] [place] TBIL is not recommended. Chloride [Moles/Vol] 109 mmol/L 98-107 [facility] Work Phone: [phone] Eosinophils/100 WBC (Bld) 1.4 % 0-5 [facility] Work Phone: Glucose [Mass/Vol] 88 mg/dL 74-106 [facility] Work Phone: [phone] Neutrophils (Bld) [#/Vol] 4.9 10*3/uL 2.0-7.7 [facility] Work Phone: [phone] Neutrophils/100 WBC (Bld) 63.7 % 47-70 [facility] Work Phone: [phone] Potassium [Moles/Vol] 4.1 mmol/L 3.5-5.1 [facility] Work Phone: [phone] Protein [Mass/Vol] 7.2 g/dL 6.4-8.2 [facility] Work Phone: [phone] Sodium [Moles/Vol] 141 mmol/L 136-145 [facility] Work Phone: WBC (Bld) [#/Vol] 7.7 10*3/uL 4.4-11.0 [facility] Blood erythrocytes count (nu mber/volume)on 03-10-2022 RBC (Bld) [#/Vol] 4.06 10*6/uL 4.2-5.4 [facility]: Blood hemoglobin measurement (mass/volume)on 03-10-2022 Hemoglobin (Bld) [Mass/Vol] 13.6 g/dL 12.0-15.0 [facility] Work Phone: Blood lymphocytes/100 leukoc yteson 03-10-2022 Lymphocytes/100 WBC (Bld) 27.1 % 19-41 [facility] Work Phone: Blood monocytes/100 leukocyt eson 03-10-2022 Monocytes/100 WBC (Bld) 7.1 % 0-10 [facility] Work Phone: Blood platelet mean volumeon 03-10-2022 Platelet mean volume (Bld) [Entitic vol] 14.3 fL 6.2-12.0 [facility] Work Phone: Determination of erythrocyte mean corpuscular volume (MCV)on 03-10-2022 MCV (RBC) [Entitic vol] 99.5 fL 81-99 [facility] Work Phone: Hematocrit Auto (Bld) [Volum e fraction]on 03-10-2022 Hematocrit (Bld) [Volume fraction] 40.4 % 37-47 [facility] Work Phone: Laboratory - Chemistry and C hemistry - challengeon 03-10-2022 ALP [Catalytic activity/Vol] 79 U/L 45-117 [facility] Work Phone: ALT [Catalytic activity/Vol] 38 U/L 13-56 [facility] Work Phone: CO2 [Moles/Vol] 26.0 mmol/L 21.0-32.0 [facility] Work Phone: Globulin (S) [Mass/Vol] 3.4 g/dL 2.2-4.2 [facility] Work Phone: Urea nitrogen/Creatinine [Mass ratio] 22.7 mg/mg 10-20 [facility] Work Phone: Laboratory - Hematology and Cell countson 03-10-2022 Erythrocyte distribution width (RBC) [Entitic vol] 49.1 fL 35.1-43.9 [facility] Work Phone: Erythrocyte distribution width (RBC) [Ratio] 13.2 % 11.6-14.6 [facility] Work Phone: Immature granulocytes/100 WBC (Bld) 0.300 % 0.0-0.9 [facility] Work Phone: Comment on above: IG% - Immature Granu locytes (promyelocytes, myelocytes and metamyelocytes) > 1% indicates that a LEFT SHIFT is Present. MCH (RBC) [Entitic mass] 33.5 pg 27.0-32.0 [facility] Work Phone: Nucleated RBC/100 WBC (Bld) [Ratio] 0 % 0-5 [facility] Work Phone: MCHC Auto (RBC) [Mass/Vol]on 03-10-2022 MCHC (RBC) [Mass/Vol] 33.7 g/dL 32-36 [facility] Work Phone: No Panel Informationon 03-10 Estimated GFR (MDRD) Amer 108 mL/min >60 [facility] Work Phone: Comment on above: GFR Calc Estimated GFR (MDRD) Non-Af Amer 89 mL/min >60 [facility] Work Phone: Comment on above: Non- GFR Calc Platelets bldon 03-10-2022 Platelets (Bld) [#/Vol] 170 10*3/uL 150-450 [facility] Work Phone: Serum or plasma albumin skip urement (mass/volume)on 03-10-2022 Albumin [Mass/Vol] 3.8 g/dL 3.2-5.0 [facility] Work Phone: Serum or plasma albumin/glob ulin mass ratioon 03-10-2022 Albumin/Globulin [Mass ratio] 1.1 {ratio} 0.9-2.4 [facility] Work Phone: Serum or plasma calcium skip urement (mass/volume)on 03-10-2022 Calcium [Mass/Vol] 9.4 mg/dL 8.5-10.1 [facility] Work Phone: Serum or plasma creatinine m easurement (mass/volume)on 03-10-2022 Creatinine [Mass/Vol] 0.70 mg/dL 0.55-1.02 [facility] Work Phone: Comment on above: The validity of the calculated GFR & GFRAA in patients over 70 years has not been determined. Clinical correlation is essential. Serum or plasma urea nitroge n measurement (mass/volume)on 03-10-2022 Urea nitrogen [Mass/Vol] 16 mg/dL 7-18 [facility] Work Phone: Thin prep Papanicolaou smear with manual screeningon 03-10-2022 Thin prep Papanicolaou smear with manual screening 25 U/L 15-37 [facility] Work Phone: Thin prep Papanicolaou smear with manual screening 6 5-15 [facility] Work Phone: Final Surgical Pathology Rep [facility] 08-07-2019 Final Surgical Pathology Report . Pathology Reports Accession: Collected Date/Time: Received Date/Time: Pathologist: [id number] 08/04/2019 11:07 EDT 08/05/2019 08:48 EDT SANDOR MERIDA MD Final Surgical Pathology Report DIAGNOSIS: A) POLYPS, BIOPSY @ 15 CM -- HYPERPLASTIC POLYPS. B) DISTAL TRANSVERSE COLON, POLYP BIOPSY -- COLONIC MUCOSA WITH LYMPHOID FOLLICLE FORMATION. C) COLON, POLYP @ 35 CM -- HYPERPLASTIC POLYP. COMMENT: [facility] [id number] CLINICAL INFORMATION: Procedure: COLONOSCOPY WITH POLYPECTOMIES Preoperative diagnosis: SCREENING Postoperative diagnosis: SAME SPECIMEN: A BIOPSY OF POLYPS @ 15 CM B DISTAL TRANSVERSE COLON POLYP BIOPSY C COLON POLYP @ 35 CM GROSS DESCRIPTION: A. Received in formalin labeled polyp biopsies at 15 cm are fernandez glistening soft tissues ranging from 0.1 to 0.5 cm. TS -1 B. Received in formalin labeled distal transverse colon polyp biopsy is a 0.3 cm fernandez glistening soft tissue. TS -1 C. Received in formalin labeled colon polyp at 35 cm are 2 fernandez glistening soft tissues averaging 0.3 cm. TS -1 Dictated by Yanet DENIS ([facility]) MICROSCOPIC DESCRIPTION: A,B&C) Slides reviewed. Electronically Signed by Pathology Report verified by [facility] Electronically signed by SANDOR MERIDA Sign out Date: 08/07/2019 09:41 Performing Lab: [facility], [address] [place] [address] ([place]) Comment on above: Performed By: #### S PFR #### [place] [address] Vital Signs Date Time Vital Sign Value Performing Clinician Facility 10-13-2024 12:06-0500 Diastolic Blood Pressure Non-Invasive 76 mm[Hg] HELENE LNYDA DO [facility] 10-13-2024 12:06-0500 Heart rate 87 /min HELENE LYNDA DO [facility] 10-13-2024 12:06-0500 Systolic Blood Pressure Non-Invasive 120 mm[Hg] HELENE LYNDA DO [facility] 10-13-2024 12:00-0500 Diastolic Blood Pressure Non-Invasive 95 mm[Hg] HELENE LYNDA DO [facility] 10-13-2024 12:00-0500 Heart rate 75 /min HELENE LYNDA DO [facility] 10-13-2024 12:00-0500 Systolic Blood Pressure Non-Invasive 112 mm[Hg] HELENE LYNDA DO [facility] 10-13-2024 11:55-0500 Body temperature 97.7 [degF] HELENE LYNDA DO [facility] 10-13-2024 11:55-0500 Diastolic Blood Pressure Non-Invasive 63 mm[Hg] HELENE LYNDA DO [facility] 10-13-2024 11:55-0500 Heart rate 71 /min HELENE LYNDA DO [facility] 10-13-2024 11:55-0500 Systolic Blood Pressure Non-Invasive 118 mm[Hg] HELENE LYNDA DO [facility] 10-13-2024 11:50-0500 Respiratory Rate - Anes 18 br/min HELENE LYNDA DO [facility] 10-13-2024 11:45-0500 Respiratory Rate - Anes 21 br/min HELENE LYNDA DO [facility] 10-13-2024 11:40-0500 Respiratory Rate - Anes 24 br/min HELENE LYNDA DO [facility] 10-13-2024 11:08-0500 Body height 155 cm HELENE LYNDA DO [facility] 10-13-2024 11:08-0500 Body temperature 97.88 [degF] HELENE LYNDA DO [facility] 10-13-2024 11:08-0500 Body weight 57 kg HELENE LYNDA DO [facility] 10-13-2024 11:08-0500 Heart rate 62 /min HELENE HOWELL DO [facility] 10-13-2024 11:08-0500 Respiratory rate 14 /min HELENE ARANAY DO [facility] 10-13-2024 11:05-0500 Body height 155 cm HELENE HOWELL DO [facility] 07-04-2023 09:37-0400 Body height 154.[address] Cyn Montana Work Phone: [facility] 07-04-2023 09:37-0400 Body mass index (BMI) [Ratio] 24.8 kg/m2 Dr. Cyn Montana Work Phone: [facility] 07-04-2023 09:37-0400 Body temperature 98.3 [degF] Dr. Cyn Montana Work Phone: [facility] 07-04-2023 09:37-0400 Body weight 59.[address] Cyn Montana Work Phone: [facility] 07-04-2023 09:37-0400 Diastolic blood pressure 69 mm[Hg] Dr. Cyn Montana Work Phone: [facility] 07-04-2023 09:37-0400 Heart rate 116 /min Dr. Cyn Montana Work Phone: [facility] 07-04-2023 09:37-0400 Respiratory rate 17 /min Dr. Cyn Montana Work Phone: [facility] 07-04-2023 09:37-0400 SaO2% (BldA) [Mass fraction] 95 % Dr. Cyn Montana Work Phone: [facility] 07-04-2023 09:37-0400 Systolic blood pressure 125 mm[Hg] Dr. Cyn Montana Work Phone: [facility] Encounters Encounter Date Encounter Type Care Provider Facility Start: 12-11-2024 End: 12-11-2024 ambulatory Cyn Montana Facility:[facility] Start: 10-24-2024 End: 10-24-2024 ambulatory China Barrow Facility:[facility] Start: 10-16-2024 End: 10-16-2024 Subsequent hospital visit by physician Screen Mammo [facility] Comment on above: Encounter for screen ing mammogram for malignant neoplasm of breast [Z12.31] Start: 10-13-2024 End: 10-13-2024 ambulatory CYN MONTANA Facility:[facility] Start: 10-13-2024 End: 10-13-2024 Minor Procedure HELENE HOWELL DO [facility] Start: 05-05-2024 End: 05-05-2024 ambulatory Cyn Nan Facility:[facility] Start: 02-08-2024 End: 02-08-2024 ambulatory [facility] Work Phone: Start: 02-08-2024 End: 02-08-2024 Patient encounter procedure [facility] Work Phone: Start: 02-08-2024 End: 02-08-2024 ambulatory Cyn Nan Facility:[facility] Start: 10-29-2023 End: 10-29-[address] Cyn Montana Work Phone: [facility] Work Phone: Start: 10-29-2023 End: 10-29-[address] Cyn Montana Work Phone: [facility] Scan, [facility] Work Phone: Start: 10-12-2023 End: 10-12-[address] Cyn Montana Work Phone: [facility] Work Phone: Start: 10-12-2023 End: 10-12-[address] Cyn Montana Work Phone: [facility] Work Phone: Start: 09-13-2023 End: 09-13-[address] Cyn Montana Work Phone: [facility] Work Phone: Start: 09-13-2023 End: 09-13-[address] Cyn Montana Work Phone: [facility] Work Phone: Start: 07-04-2023 End: 07-04-[address] Cyn Montana Work Phone: [facility] Work Phone: Start: 03-09-2023 End: 03-09-2023 ambulatory [facility] Work Phone: Start: 03-09-2023 End: 03-09-2023 Patient encounter procedure [facility] Start: 10-26-2022 End: 10-26-2022 ambulatory HERMINIA DENISE Facility:[facility] Start: 10-26-2022 End: 10-26-2022 Subsequent [facility] visit by [facility] Start: 09-11-2022 End: 09-11-2022 ambulatory [facility] Work Phone: Start: 09-11-2022 End: 09-11-2022 Patient encounter procedure [facility] Start: 09-07-2022 End: 09-07-2022 ambulatory [facility] Work Phone: Start: 09-07-2022 End: 09-07-2022 Patient encounter procedure [facility] Start: 08-17-2022 End: 10-06-2022 ambulatory [facility] Work Phone: Start: 08-17-2022 End: 08-17-2022 Patient encounter procedure [facility]Laboratory, Specimen Start: 03-10-2022 End: 03-10-2022 Patient encounter procedure [facility], [place] Procedures Date Procedure Procedure Detail Performing Clinician Start: 10-29-[address] Cyn Montana Work Phone: Start: 10-26-2022 SHANTI SCREENING W ISAC Cc f Provider Start: 09-11-2022 CT of chest Start: 05-27-2010 Lipid 1996 panel - S cody or Plasma Screen Wstr Biopsy of breast HELENE Serra O Colonoscopy HELENE HOWELL DO Comment on above: 2013 H/O: tubal ligation HELENE Mckinney DO Plan of Treatment Date Care Activity Detail Author Start: 2035 RSV Vaccine (1 - 1-dose 75+ series) RSV Vaccine (1 - 1-dose 75+ series) [facility] Start: 07-13-2024 Covid-19 Vaccine () Covid-19 Vaccine () [facility] Start: 06-25-2024 HPV Testing HPV Testing [facility] Start: 06-25-2024 Pap Testing Pap Testing [facility] Start: 10-26-2023 Mammography Mammogram Screening [facility] Start: 10-26-2023 Screening for malignant neoplasm of breast Mammogram Screening [facility] Start: 07-13-2023 Covid-19 Vaccine ( season) Covid-19 Vaccine () [facility] Start: 07-13-2023 Influenza vaccination Influenza Vaccine (#1) [facility] Start: 11-12-2022 Depression Assessment Depression Assessment [facility] Start: 08-17-2022 [facility] Work Phone: Start: 06-25-2020 Screening for malignant neoplasm of cervix Cervical Cancer Screening [facility] Start: 2020 RSV Vaccine (1 - 1-dose 60+ series) RSV Vaccine (1 - 1-dose 60+ series) [facility] Start: 05-27-2015 Lipid 1996 panel - Serum or Plasma Lipid Screening [facility] Start: 05-27-2015 Lipid panel Lipid Screening [facility] Start: 05-27-2013 Diabetes Screening Diabetes Screening [facility] Start: 2010 Shingrix Vaccine (1 of 2) Shingrix Vaccine (1 of 2) [facility] Start: 2005 Cologuard (FIT-DNA) Cologuard (FIT-DNA) [facility] Start: 2005 Colonoscopy Colonoscopy [facility] Start: 2005 Colorectal Cancer Screening Colorectal Cancer Screening [facility] Start: [address] Colonography [facility] Start: 2005 Fecal Occult Blood Fecal Occult Blood [facility] Start: 2005 Screening for malignant neoplasm of colon [facility] Start: 2005 Sigmoidoscopy Sigmoidoscopy [facility] Start: 1979 Urine microalbumin profile DTaP,Tdap,Td Vaccine (1 - Tdap) [facility] Start: 1978 Anxiety Screening Anxiety Screening [facility] Start: 1978 Depression Screening Depression Screening [facility] Start: 1978 Hepatitis C Screening Hepatitis C Screening [facility] Start: 1978 Hepatitis C screening Hepatitis C Screening [facility] Start: 1978 HIV Screening HIV Screening [facility] Start: 1978 HIV screening HIV Screening [facility] Start: 1966 Pneumococcal vaccination Pneumococcal Vaccine (1 - PCV) [facility] Path report.final Dx Spec [facility] Work Phone: [facility] Work Phone: Immunizations Immunization Date Immunization Notes Care Provider Fa cility 08-17-2022 influenza virus vacc ine, unspecified formulation Screen Wstr [facility] Payers Date Payer Category Payer Self-pay [id number] 2018 Unknown [employer] PPO [id number] 2018-Present [phone] [address] [place] [address] PPO [id number] 2013 Unknown [id number] 1960 Unknown [id number] Unknown [id number] Unknown [id number] Unknown [id number] Unknown [id number] Social History Date Type Detail Facility Start: 09-09-2021 End: 07-04-2023 Tobacco smoking status SCIS Unknown if ever smoked [facility] Start: 1960 Sex Assigned At Female [facility] Start: 06-14-2021 Tobacco smoking stat us SCIS Smokes tobacco daily [facility] Work Phone: History of tobacco use Cigarette Smoker [facility] Work Phone: Start: 06-14-2021 End: 10-16-2024 Cigarettes smoked current (pack per day) - Reported 0.5 [facility] Start: 06-14-2021 Tobacco use and exposure Smokeless tobacco non-user [facility] Work Phone: Start: 06-14-2021 Alcohol intake Current drinke r of alcohol (finding) [facility] Start: 06-14-2021 End: 10-16-2024 Tobacco use panel [facility] National Score (1-10 0), lower number is lower risk Not on file [facility] Start: 06-14-2021 Alcohol Comment Rarely [facility] Start: 1960 Sex Assigned At Not on file [facility] Start: 08-04-2019 Tobacco smoking status Heavy t obacco smoker (finding) [facility] Functional Status Date Assessment Result Facility 10-13-2024 Functional Status Awake [facility] 10-13-2024 Functional Status None [facility] Mental Status Date Assessment Result Facility 10-13-2024 Mental Status Oriented x 4 Steven Santiago ma [facility] Clinical Notes 08-17-2022 to 10-16-2024 Marline Latif Mammo Tech - 10/16/2024 2:30 PM EST Note Date & Type Note Facility 10-16-2024 History of Present illness Narrative Radiology Service Progress Note PATIENT NAME: Summer Crockett DATE OF SERVICE: October 16, 2024 TIME: 3:06 PM PATIENT IDENTITY VERIFICATION COMPLETED USING TWO (2) IDENTIFIERS: Name and Date of confirmed by patient verbally. FALL SCREENING: Has the patient had 2 falls in the last year or 1 fall with injury or currently using an Ambulatory Assistive Device (Walker, Cane, Wheelchair, Crutches, etc.)? No PATIENT GENDER DATA: Female. status: : No status: NO. PATIENT RELEVANT IMPLANT DATA REVIEWED: Not Applicable PATIENT PRESENTS WITH AN IMPLANTABLE OR ATTACHED DATA CONVERSION ANALYST: No RADIOLOGY DEPARTMENT: Mammography PERIPHERAL IV DATA: Not applicable SIGNED BY: Mercy Adkins October 16, 2024 3:06 PM documented in this encounter [facility] 10-13-2024 Hospital Discharge instructions Patient Education 10/13/2024 12:01:03 Colonoscopy, Adult, Care After Colonoscopy, Adult, Care After This sheet gives you information about how to care for yourself after your procedure. Your health care provider may also give you more specific instructions. If you have problems or questions, contact your health care provider. What can I expect after the procedure? After the procedure, it is common to have: A small amount of blood in your stool for 24 hours after the procedure. Some gas. Mild abdominal cramping or bloating. Follow these instructions at home: General instructions For the first 24 hours after the procedure: ?Do not drive or use machinery. ?Do not sign important documents. ?Do not drink alcohol. ?Do your regular daily activities at a slower pace than normal. ?Eat soft, oang-yv-ahpxsp foods. Take srnj-iht-cygzttp or prescription medicines only as told by your health care provider. Relieving cramping and bloating Try walking around when you have cramps or feel bloated. Apply heat to your abdomen as told by your health care provider. Use a heat source that your health care provider recommends, such as a moist heat pack or a heating pad. ?Place a towel between your skin and the heat source. ?Leave the heat on for 20 30 minutes. ?Remove the heat if your skin turns bright red. This is especially important if you are unable to feel pain, heat, or cold. You may have a greater risk of getting burned. Eating and drinking Drink enough fluid to keep your urine pale yellow. Resume your normal diet as instructed by your health care provider. Avoid heavy or fried foods that are hard to digest. Avoid drinking alcohol for as long as instructed by your health care provider. Contact a health care provider if: You have blood in your stool 2 3 days after the procedure. Get help right away if: You have more than a small spotting of blood in your stool. You pass large blood clots in your stool. Your abdomen is swollen. You have nausea or vomiting. You have a fever. You have increasing abdominal pain that is not relieved with medicine. Summary After the procedure, it is common to have a small amount of blood in your stool. You may also have mild abdominal cramping and bloating. For the first 24 hours after the procedure, do not drive or use machinery, sign important documents, or drink alcohol. Contact your health care provider if you have a lot of blood in your stool, nausea or vomiting, a fever, or increased abdominal pain. This information is not intended to replace advice given to you by your health care provider. Make sure you discuss any questions you have with your health care provider. Document Released: 06/12/2005 Document Revised: 08/21/2018 Document Reviewed: 01/09/2017 [employer] Patient Education 2020 [employer] 10/13/2024 12:01:00 Monitored Anesthesia Care, Care After Monitored Anesthesia Care, Care After These instructions provide you with information about caring for yourself after your procedure. Your health care provider may also give you more specific instructions. Your treatment has been planned according to current medical practices, but problems sometimes occur. Call your health care provider if you have any problems or questions after your procedure. What can I expect after the procedure? After your procedure, you may: Feel sleepy for several hours. Feel clumsy and have poor balance for several hours. Feel forgetful about what happened after the procedure. Have poor judgment for several hours. Feel nauseous or vomit. Have a sore throat if you had a breathing tube during the procedure. Follow these instructions at home: For at least 24 hours after the procedure: Have a responsible adult stay with you. It is important to have someone help care for you until you are awake and alert. Rest as needed. Do not: ?Participate in activities in which you could fall or become injured. ?Drive. ?Use heavy machinery. ?Drink alcohol. ?Take sleeping pills or medicines that cause drowsiness. ?Make important decisions or sign legal documents. ?Take care of children on your own. Eating and drinking Follow the diet that is recommended by your health care provider. If you vomit, drink water, juice, or soup when you can drink without vomiting. Make sure you have little or no nausea before eating solid foods. General instructions Take bfrh-dvx-oujuiin and prescription medicines only as told by your health care provider. If you have sleep apnea, surgery and certain medicines can increase your risk for breathing problems. Follow instructions from your health care provider about wearing your sleep device: ?Anytime you are sleeping, including during daytime naps. ?While taking prescription pain medicines, sleeping medicines, or medicines that make you drowsy. If you smoke, do not smoke without supervision. Keep all follow-up visits as told by your health care provider. This is important. Contact a health care provider if: You keep feeling nauseous or you keep vomiting. You feel light-headed. You develop a rash. You have a fever. Get help right away if: You have trouble breathing. Summary For several hours after your procedure, you may feel sleepy and have poor judgment. Have a responsible adult stay with you for at least 24 hours or until you are awake and alert. This information is not intended to replace advice given to you by your health care provider. Make sure you discuss any questions you have with your health care provider. Document Released: 02/18/2017 Document Revised: 01/27/2019 Document Reviewed: 02/18/2017 [employer] Patient Education 2020 [employer]. Follow Up Care 09/19/2024 11:39:31 With:HELENE HOWELL DO, Clinical Gastroenterology Address: [address] [facility] [place] [address] [phone] When: Unknown With:CYN MONTANA Address: [address] [place] [address] [place] [address] [phone] When: Unknown [facility] 10-13-2024 Evaluation + Plan note Extrac malina from: Title:Clinical Document Author:HELENE HOWELL DO D ate:10/13/24 [place] ADMISSION HISTORY AN D PHYSICIAL CHIEF COMPLAINT: Colorectal cancer screening, personal history of colon polyps HISTORY OF PRESENT ILLNESS: Personal history of colon polyps REVIEW OF SYSTEMS: Constitutional: denies weight loss Cardiovascular:denies chest pain, palpitations Respiratory:denies shortness of breath Gastrointestinal:no abd pain Musculoskeletal: no arthralgias Skin: no rashes ACTIVE PROBLEMS: (2) Inguinal hernia ([id number]) Tobacco use ([id number]) MEDICATIONS: Active Inpt Meds: None Active PRN Meds: None One Time Meds: None Active IV Meds: Lactated Ringers Infusion 1,000 mL Start: 10/13/24 10:59:00 EST, Rate: 20 mL/hr, 10/13/24 10:59:00 EST ALLERGIES: (2) Bee Stings caffeine FAMILY HISTORY: SOCIAL HISTORY: PHYSICAL EXAM: VITALS: [id number](kg) 10/13 11:0836.6--6214--RA10/13 57.0 24 Hr Tmax: 36.6 at 10/13 11:08 36 Hr Tmax: 36.6 at 10/13 11:08 Vital Signs are the last 5 in the past 48 hours. Weights display the last 5 within 7 days. Initial Wt: 10/13 57.0 kg 125 lb Current Wt: 10/13 57.0 kg 125 lb physical exam alert and oriented cardio; regular without murmur pulm; clear abd; soft, nontender LABS: No 36hr Lab Data DIAGNOSTICS: IMPRESSION: Colorectal cancer screening, high risk, personal history of colon polyps PLAN: Colonoscopy as discussed in the office [facility] 12-02-2024 Note Discharge Instructions Thank you for allowing [facility] to assist you with your healthcare needs. The following is importantdischarge information regarding your hospital visit. Your Care Team CYN MONTANA Dr. What to do next Instructions From Your Doctor Repeat colonoscopy 5 years Follow Up Appointments Follow Up with HELENE HOWELL DO, Clinical Gastroenterology Where:[address] [facility] [place] [address]- [phone] Follow Up with CYN MONTANA Where:[address] [place] [address]- [phone] The Following Activity and Diet Have Been Ordered for You Discharge Activity - Ordered -- Driving Restricted, No driving until tomorrow, 10/13/24 10:59:00 EST Discharge Return to Work, School, or Sports (Discharge Return to status) - Ordered -- May return to: work, 10/13/24 10:59:00 EST Discharge Diet - Ordered -- Type of Diet: Regular Diet, 10/13/24 10:59:00 EST Someone Will Contact You Regarding These Home Health Referrals No home referrals have been ordered for you. No one will call you. Allergies Bee Stings Swelling caffeine Medications Please ask your primary doctor or pharmacist before taking any other medication not listed, including over the counter drugs, herbal medications, vitamins and or supplements as they may interact withyour home medications. What How Much When Instructions Last Dose Unchanged aspirin (aspirin 81 mg oral tablet (chewable)) 1 tab(s) by mouth Every day Unchanged DULoxetine (DULoxetine 20 mg oral delayed release capsule) Once a day Unchanged hydroxychloroquine (hydroxychloroquine 200 mg oral tablet) 2 tab(s) by mouth Once a day Unchanged hydroxychloroquine (Plaquenil 200 mg oral tablet) 1 tab(s) by mouth Two (2) times a day Unchanged multivitamin (Multivitamin) 1 tab(s) by mouth Every day Unchanged omeprazole (omeprazole 40 mg oral delayed release capsule) 1 cap by mouth Once a day Unchanged predniSONE (predniSONE 10 mg oral tablet) 1 tab(s) by mouth Once Please take this list to your next doctor s visit. Bring all medications you take, including over the counter medications, herbals and other supplements with you to your doctor s visit. Patients and families are reminded to discard old lists and to update any records with all medication providers or retail pharmacies. Education Materials Colonoscopy, Adult, Care After This sheet gives you information about how to care for yourself after your procedure. Your health care provider may also give you more specific instructions. If you have problems or questions, contact your health care provider. What can I expect after the procedure? After the procedure, it is common to have: A small amount of blood in your stool for 24 hours after the procedure. Some gas. Mild abdominal cramping or bloating. Follow these instructions at home: General instructions For the first 24 hours after the procedure: ? Do not drive or use machinery. ? Do not sign important documents. ? Do not drink alcohol. ? Do your regular daily activities at a slower pace than normal. ? Eat soft, rsnv-pc-nxptrn foods. Take zzlm-jeq-rzvxjto or prescription medicines only as told by your health care provider. Relieving cramping and bloating Try walking around when you have cramps or feel bloated. Apply heat to your abdomen as told by your health care provider. Use a heat source that your healthcare provider recommends, such as a moist heat pack or a heating pad. ? Place a towel between your skin and the heat source. ? Leave the heat on for 20 30 minutes. ? Remove the heat if your skin turns bright red. This is especially important if you are unable to feel pain, heat, or cold. You may have a greater risk of getting burned. Eating and drinking Drink enough fluid to keep your urine pale yellow. Resume your normal diet as instructed by your health care provider. Avoid heavy or fried foods thatare hard to digest. Avoid drinking alcohol for as long as instructed by your health care provider. Contact a health care provider if: You have blood in your stool 2 3 days after the procedure. Get help right away if: You have more than a small spotting of blood in your stool. You pass large blood clots in your stool. Your abdomen is swollen. You have nausea or vomiting. You have a fever. You have increasing abdominal pain that is not relieved with medicine. Summary After the procedure, it is common to have a small amount of blood in your stool. You may also have mild abdominal cramping and bloating. For the first 24 hours after the procedure, do not drive or use machinery, sign important documents, or drink alcohol. Contact your health care provider if you have a lot of blood in your stool, nausea or vomiting, a fever, or increased abdominal pain. This information is not intended to replace advice given to you by your health care provider. Make sure you discuss any questions you have with your health care provider. Document Released: 06/12/2005 Document Revised: 08/21/2018 Document Reviewed: 01/09/2017 [employer] Patient Education 2020 [employer]. Monitored Anesthesia Care, Care After These instructions provide you with information about caring for yourself after your procedure. Your health care provider may also give you more specific instructions. Your treatment has been plannedaccording to current medical practices, but problems sometimes occur. Call your health care provider if you have any problems or questions after your procedure. What can I expect after the procedure? After your procedure, you may: Feel sleepy for several hours. Feel clumsy and have poor balance for several hours. Feel forgetful about what happened after the procedure. Have poor judgment for several hours. Feel nauseous or vomit. Have a sore throat if you had a breathing tube during the procedure. Follow these instructions at home: For at least 24 hours after the procedure: Have a responsible adult stay with you. It is important to have someone help care for you until youare awake and alert. Rest as needed. Do not: ? Participate in activities in which you could fall or become injured. ? Drive. ? Use heavy machinery. ? Drink alcohol. ? Take sleeping pills or medicines that cause drowsiness. ? Make important decisions or sign legal documents. ? Take care of children on your own. Eating and drinking Follow the diet that is recommended by your health care provider. If you vomit, drink water, juice, or soup when you can drink without vomiting. Make sure you have little or no nausea before eating solid foods. General instructions Take cjky-thi-ezjnhlb and prescription medicines only as told by your health care provider. If you have sleep apnea, surgery and certain medicines can increase your risk for breathing problems. Follow instructions from your health care provider about wearing your sleep device: ? Anytime you are sleeping, including during daytime naps. ? While taking prescription pain medicines, sleeping medicines, or medicines that make you drowsy. If you smoke, do not smoke without supervision. Keep all follow-up visits as told by your health care provider. This is important. Contact a health care provider if: You keep feeling nauseous or you keep vomiting. You feel light-headed. You develop a rash. You have a fever. Get help right away if: You have trouble breathing. Summary For several hours after your procedure, you may feel sleepy and have poor judgment. Have a responsible adult stay with you for at least 24 hours or until you are awake and alert. This information is not intended to replace advice given to you by your health care provider. Make sure you discuss any questions you have with your health care provider. Document Released: 02/18/2017 Document Revised: 01/27/2019 Document Reviewed: 02/18/2017 [employer] Patient Education 2020 [employer] Additional Information VACCINATE! IT SAVES LIVES! Members of the community who have not yet received the COVID-19 vaccine and would like to receive it can visit one of [facility] vaccine clinics. There are many vaccine clinic locations within the [facility]. For locations and available times, please visit [email or web address].[place].gov/. It is important to note that some COVID mobile vaccine clinics are held outdoors and may be canceled in rainy or stormy conditions. To learn more about pediatric vaccinations (ages 5-11), we invite you to visit the [facility] webpage. https://www.[email or web address].org/pages/6514-Siezq-Qtqtvtnlksb-Inahwtqjmz-Bszgp-Nvo stions.htmlTo learn more about the COVID-19 vaccine, we invite you to visit the CDC website for a list of frequently asked questions.https://www.cdc.gov/coronavirus/2019-ncov/vaccines/faq.html [employer] Patient Portal Access Instructions: Stay connected with your healthcare team and access your personal medical information anytime with the [employer] Patient Portal. Please follow the directions below to create your [employer] account: 1.Access the email account you provided upon registration to the hospital/physician office.2.Look for an invitation email from [facility].3.Open the email and access the invitation link: AcceptInvitation to [employer].4.Fill in the required joyce to create your account. To access your account, visit [employer]. Click the blue button labeled Access Patient Portal and then log in with the username and password that you created in the steps above. You will be able to view your test results, lab results, a summary of your visits, upcoming appointments and more. There is also a convenient messaging option where you can send secure messages to your p rovider. In addition, you will have the ability to download any documents or summaries to your computer and/or send the information securely to a physician. Remember that your healthcare information is confidential, so carefully consider who you will allowto register on the [facility] [facility] Patient Portal for access to your information. You can also access the [facility] on the [place] [facility] carole. Simply click on Patient Portal and then log into your account. If you would like to receive a full copy of your medical records, please contact the [facility] Medical Records Department by calling [phone], Sunday through Sunday between 8 a.m. and 4:30 p.m. HOW TO SAFELY DISPOSE OF PRESCRIPTION MEDICATIONS Please use one of the following methods to safely dispose of your unused medications. 1.Use a drug disposal kit: the drug disposal pouch allows you to safely discard your old and unuseddrugs. Ask your nurse to give you one when you are discharged.2.Visit a local take-back location: Many local pharmacies and police departments have programs that collect old and unwanted prescriptiondrugs. Call your local pharmacy or go to http://Walk-in Appointment Scheduler.[place]/8O9Uq3b to find one close to you.3.Make use of household items: Use cat litter or old coffee grounds to dispose medications if other options arenot available. Mix your drugs with these household products, seal them in an airtight container andthrow it into the garbage. Call [facility]: [phone] to be sure your drugs can be disposed of in this way. Some medicines may require a different approach.4.Never flush your medications down the toilet. IF YOU HAVE BEEN PRESCRIBED AN OPIOID FOR PAIN If you have been prescribed an opioid (such as hydrocodone, oxycodone or morphine), it is critical to understand the possible side effects and risks of opioid pain medications. Even when taken as directed, opioids can have several side effects including: Tolerance, meaning you might need to take more of a medication for the same pain relief. Nausea, vomiting and/or constipation. Sleepiness, dizziness, dry mouth, confusion, depression or itching. Physical dependence, meaning you have withdrawal symptoms when a medication is stopped, can develop within a few days. KNOW YOUR RESPONSIBILITIES It is important to know exactly how much and how often to take the opioid pain medications you are prescribed. Never take opioids in higher amounts or more often than prescribed. Do not combine opioids with alcohol or other drugs that cause drowsiness, such as benzodiazepines, also known as benzos, including diazepam and alprazolam, muscle relaxants or sleep aids. Never sell or share prescription opioids. This is illegal. Store opioids in a secure place and out of reach of others (including children, family, friends and visitors). The last page of this document has been signed and retained as a CHART COPY. Signatures Patient Education Materials Colonoscopy, Adult, Care After Monitored Anesthesia Care, Care After Medication Leaflets My discharge plan and instructions have been reviewed and explained to me and I,SUMMER CROCKETT understand my current condition and have read and understand these discharge instructions. I have received a written copy of the plan/instructions. If I have questions, I am aware that I should contactmy doctor. Patient/Expediter Service Order Signature: Date/Time: Relationship to Patient: Witness Name/Signature: Date/Time: [facility]12-02-2024 Note Indication for Surgery Colorectal cancer screening Preoperative Diagnosis Personal history of colon polyps Postoperative Diagnosis Sigmoid diverticulosis Operation Colonoscopy Surgeon(s) Helene Howell D.O. Anesthesia MAC Estimated Blood Loss None Specimen(s) None Complications None Technique The patient was evaluated in the preoperative area and surgical consent was obtained. She was then brought to endoscopy and monitored on pulse oximetry, cardiac monitoring and placed on supplemental oxygen. She was placed in left lateral decubitus position and a surgical timeout was obtained. Sedation was provided by anesthesia. A digital exam was unremarkable. The colonoscope carefully inserted into the rectum advanced towards the cecum. Sigmoid diverticulosis was noted. Cecal pouch appeared normal. Photographs were obtained. A 6-minute withdrawal was then performed with a good prep. Retrofle xion was normal. Scope was removed. Patient is then transferred to recovery area in stable condition vital signs. Discharge summary: 1. Final Diagnosis: Sigmoid diverticulosis 2. Outcome: Patient tolerated procedure well without complication 3. Disposition: Patient was discharged home to follow previous diet and medications 4. Follow-up care: Follow-up with primary care physician as scheduled. Repeat exam in 5 years Digitally Signed by HELENE HOWELL DO on 10/13/2024 11:54 AM [facility]12-02-2024 Anesthesiology Consult note Patient: SUMMER CROCKETT Age: 64 years Sex: Female : 1960 Associated Diagnoses: None Author: JAZZY LANCASTER BACTERIOLOGY RESEARCH ASSISTANT-REGIONAL PLANNER Assessment Postanesthesia assessment Vitals: Vital signs from flowsheet : Vital Signs 10/13/2024 11:50 EST Heart Rate Monitored 63 bpm bpm Respiratory Rate - Anes 18 br/min br/min 10/13/2024 11:45 EST Heart Rate Monitored 57 bpm bpm Respiratory Rate - Anes 21 br/min br/min Systolic Blood Pressure Non-Invasive 130 mmHg mmHg Diastolic Blood Pressure Non-Invasive 72 mmHg mmHg 10/13/2024 11:40 EST Heart Rate Monitored 68 bpm bpm Respiratory Rate - Anes 24 br/min br/min Systolic Blood Pressure Non-Invasive 108 mmHg mmHg Diastolic Blood Pressure Non-Invasive 74 mmHg mmHg 10/13/2024 11:35 EST Heart Rate Monitored 57 bpm bpm Respiratory Rate - Anes 12 br/min br/min Systolic Blood Pressure Non-Invasive 104 mmHg mmHg Diastolic Blood Pressure Non-Invasive 58 mmHg mmHg 10/13/2024 11:08 EST Temperature Temporal Artery 36.6 DegC Peripheral Pulse Rate 62 bpm Respiratory Rate 14 br/min Systolic Blood Pressure Non-Invasive 132 mmHg Diastolic Blood Pressure Non-Invasive 67 mmHg , Measurements from flowsheet . Mental status: at preoperative baseline. Respiratory function: respirations are non-labored. Respiratory support: none. CV function: Normal rate. Cardiovascular support: none. Pain. Nausea status: see nursing documentation of medications. Postoperative hydration status: within normal limits. Digitally Signed by JAZZY LANCASTER on 10/13/2024 11:52 AM [facility]12-02-2024 Anesthesiology Consult note Patient: SUMMER CROCKETT Age: 64 years Sex: Female : 1960 Associated Diagnoses: None Author: JAZZY LANCASTER Preoperative Information Time of last solid food intake: 10/13/2024 00:00:00 Time of last clear liquid intake: 10/13/2024 08:00:00 Anesthesia history Patient's history: negative. Family's history: negative. Health Status Allergies: Allergic Reactions (Selected) Severity Not Documented Bee Stings- Swelling. Caffeine- No reactions were documented., Allergies (2) ActiveSeverityReaction caffeineNone Documented Bee StingsSwelling Current medications: (Selected) Inpatient Medications Ordered Lactated Ringers Infusion 1,000 mL: 20 mL/hr, Intravenous Documented Medications Documented DULoxetine 20 mg oral delayed release capsule: qDay, 0 Refill(s) Multivitamin: 1 tab(s), Oral, Daily, 0 Refill(s) Plaquenil 200 mg oral tablet: 200 mg, 1 tab(s), Oral, BID, 0 Refill(s) aspirin 81 mg oral tablet (chewable): 81 mg, 1 tab(s), Oral, Daily, 0 Refill(s) hydroxychloroquine 200 mg oral tablet: 400 mg, 2 tab(s), Oral, qDay, 180 tab(s), 0 Refill(s) omeprazole 40 mg oral delayed release capsule: 40 mg, 1 cap(s), Oral, qDay, 30 cap(s), 0 Refill(s) predniSONE 10 mg oral tablet: 10 mg, 1 tab(s), Oral, Once, 1 tab(s), 0 Refill(s), Medications (1) Active Scheduled: (0) Continuous: (1) Lactated Ringers Infusion 1,000 mL 1,000 mL, Intravenous, 20 mL/hr PRN: (0) Problem list: Medical Inguinal hernia / SNOMED CT [id number] / Confirmed, Active Problems (2) Inguinal hernia Tobacco use Histories Past Medical History: Resolved Allergic rhinitis (415876477): Resolved. Lupus ([id number]): Resolved. Blood clotting disorder ([id number]): Resolved. Family History: Malignant tumor of lung Father Malignant tumor of prostate Father Skin cancer Father Procedure history: H/O tubal ligation ([id number]). Biopsy of breast ([id number]). Colonoscopy ([id number]). Comments: 08/04/2019 10:07 Phyllis Dang RN 2013 Social History: Social & Psychosocial Habits Alcohol 09/17/2024 Use: Never Substance Abuse 09/17/2024 Use: Never Tobacco 09/17/2024 Tobacco Use: 10 or more cigarettes (1/ Type: Cigarettes Physical Examination Vital Signs 10/13/2024 11:08 EST Temperature Temporal Artery 36.6 DegC Peripheral Pulse Rate 62 bpm Respiratory Rate 14 br/min Systolic Blood Pressure Non-Invasive 132 mmHg Diastolic Blood Pressure Non-Invasive 67 mmHg Vital Signs (last 24 hrs) Last Charted Temp Stygdomt88.6 DegC (OCT 13 11:08) OEU676 mmHg (OCT 13 11:08) DBP67 mmHg (OCT 13 11:08) Measurements from flowsheet : Measurements 10/13/2024 11:08 EST Height 155 cm Admission Weight 57 kg [place] Body Weight 47.85 kg Admission Body Mass Index 23.73 m2 10/13/2024 11:05 EST Height 155 cm [place] Body Weight 47.85 kg Pain assessment: Pain Assessment 10/13/2024 11:08 EST Primary Pain Intensity 0 Pain Scale Type 0-10 Pain scale . General: Alert and oriented. Airway: Normal temporomandibular joint mobility, Normal mouth, Normal neck range of motion. Mallampati classification: II (soft palate, fauces, uvula visible). Dentition Evaluation: Denies loose/chipped teeth. Respiratory: Respirations are non-labored. Cardiovascular: Normal rate. Neurologic: Alert, Oriented. Review / Management Results review: No qualifying data available , Lab results 10/13/2024 11:35 EST SN - Proc - EBL 0 mL 10/13/2024 11:35 EST SN - PP - Body Position Lateral Right Side-up Standard Intra-op 10/13/2024 11:29 EST [place] History and Physical 10/13/2024 11:25 EST SN - Proc - Anesthesia Type MAC SN - Proc - Actual Procedure COLONOSCOPY 10/13/2024 11:25 EST SN - GCD - ASA Class 2 SN - GCD - Post-operative Diagnosis SCREENING SN - GCD - Case Level OPD Level 3 10/13/2024 11:24 EST SN - CAt - Case Attendee SN - CAt - Case Attendee SN - CAt - Case Attendee SN - CAt - Case Attendee SN - CAt - Case Attendee SN - CAt - Case Attendee SN - CAt - Case Attendee SN - CAt - Case Attendee SN - CAt - Role Performed Primary Surgeon SN - CAt - Role Performed Data Processing Control Clerk 1 SN - CAt - Role Performed [place] Hold SN - CAt - Role Performed REGIONAL PLANNER 10/13/2024 11:16 EST Hand Right 22 gauge Peripheral IV Activity: Insert new site Peripheral IV Dressing Condition: Clean, Dry, Intact Peripheral IV Dressing Activity: Applied Peripheral IV Line Status/Patency: Continuous infusion Peripheral IV Site Condition: No complications Peripheral IV Number of Attempts: 1 Lactated Ringers Injection Begin Bag 1,000 mL mL 10/13/2024 11:08 EST Height 155 cm Admission Weight 57 kg [place] Body Weight 47.85 kg Admission Body Mass Index 23.73 m2 Temperature Temporal Artery 36.6 DegC Peripheral Pulse Rate 62 bpm Respiratory Rate 14 br/min Systolic Blood Pressure Non-Invasive 132 mmHg Diastolic Blood Pressure Non-Invasive 67 mmHg Primary Pain Intensity 0 Pain Scale Type 0-10 Pain scale Heart Rhythm Regular Respirations Unlabored Respiratory Pattern Regular Oxygen Therapy Room air Abdomen Description Non-distended, Soft Skin Temperature Warm Skin Description [place] Characteristics of Speech Clear Level of Consciousness Alert Strength All Extremities Strong Orientation Oriented x 4 Standard Safety ID band on, Call device within reach, Bed in low position, Wheels locked 10/13/2024 11:05 EST Designated Person #1 We May Share PHI SARATH [phone] Designated Person #1 Relationship Son Height 155 cm [place] Body Weight 47.85 kg Status No, per patient Sensory Deficits None Infectious Disease Symptoms Patient states no symptoms Infectious Disease Recent Exposure No Alcohol and Drug Use No Employee of Institutional Living No Health Care Employee No History of Exposure to TB No History of Positive Chest X-Ray for TB No History of Positive TB Skin Test No Homeless No Known Immunosuppression No Recent Immigrant No Resident of Institutional Living No Bloody Sputum No Fatigue No Fever No Loss of Appetite No Night Sweats No Persistent Cough > 3 Weeks No Weight Loss No Barriers to Learning None evident Teaching Method Demonstration Preferred Spoken Language Cambodian Preferred Written Language Cambodian Patient's Current Physicians Patient's Current Physicians Discharge To, Anticipated Home with family care Prev Test Positive/Diagnosis w/COVID-19 Yes Previous COVID-19 Positive Date 2020 Current Quarantine/Isolated any Illness No Any Contact with Sick Animals/Birds No Traveled Anywhere in Last 30 Days No No Personal Devices, Patient Valuables Glasses Admission Note-Nursing Procedure/Therapy Intake 10/13/2024 11:01 EST IV Present Present Allergies Yes Colon Prep Results Good Consent Form Signed Yes Patient Dressed In Hospital gown History & Physical Update On Chart Yes History & Physical On Chart Yes Bowel Prep Completed Yes Belongings At Bedside Glasses, Pants, Shirt, Shoes Personal Home Medications Received No home medications were brought in Patient ID Band on and Verified Yes Implants Verified Yes Pacemaker/AICD Verified Yes Site Verified by Patient/Family Yes Anesthesia Consent Signed Yes Last Fluid Intake 10/13/2024 8:40 Last Food Intake 10/12/2024 7:00 . Assessment and Plan [place] [employer]esthesi[employer] (ASA) physical status classification: Class II. Anesthetic Preoperative Plan Anesthetic technique: MAC. Informed consent: signed by patient. Digitally Signed by JAZZY LANCASTER on 10/13/2024 11:41 AM [facility]12-02-2024 Note [place] ADMISSION HISTORY AND PHYSICIAL CHIEF COMPLAINT: Colorectal cancer screening, personal history of colon polyps HISTORY OF PRESENT ILLNESS: Personal history of colon polyps REVIEW OF SYSTEMS: Constitutional: denies weight loss Cardiovascular:denies chest pain, palpitations Respiratory:denies shortness of breath Gastrointestinal:no abd pain Musculoskeletal: no arthralgias Skin: no rashes ACTIVE PROBLEMS: (2) Inguinal hernia ([id number]) Tobacco use ([id number]) MEDICATIONS: Active Inpt Meds: None Active PRN Meds: None One Time Meds: None Active IV Meds: Lactated Ringers Infusion 1,000 mL Start: 10/13/24 10:59:00 EST, Rate: 20 mL/hr, 10/13/24 10:59:00 EST ALLERGIES: (2) Bee Stings caffeine FAMILY HISTORY: SOCIAL HISTORY: PHYSICAL EXAM: VITALS: DnwgarSbdiDJYruffRVQdY8CNP1GczdGw(kg) 10/13 11:0836.6--6214--RA10/13 57.0 24 Hr Tmax: 36.6 at 10/13 11:08 36 Hr Tmax: 36.6 at 10/13 11:08 Vital Signs are the last 5 in the past 48 hours. Weights display the last 5 within 7 days. Initial Wt: 10/13 57.0 kg 125 lb Current Wt: 10/13 57.0 kg 125 lb physical exam alert and oriented cardio; regular without murmur pulm; clear abd; soft, nontender LABS: No 36hr Lab Data DIAGNOSTICS: IMPRESSION: Colorectal cancer screening, high risk, personal history of colon polyps PLAN: Colonoscopy as discussed in the office Digitally Signed by HELENE HOWELL DO on 10/13/2024 11:30 AM [facility]12-15-2022 NoteHNO ID: [id number] Author: Mercy Corona Service: ? Author Type: Sales Development Consultant Type: Progress Notes Filed: 10/26/2022 3:13 PM Note Text: Radiology Service Progress Note PATIENT NAME: Summer Crockett DATE OF SERVICE: October 26, 2022 TIME: 2:26 PM PATIENT IDENTITY VERIFICATION COMPLETED USING TWO (2) IDENTIFIERS: Name and Date of confirmed by patient verbally. FALL SCREENING: Has the patient had 2 falls in the last year or 1 fall with injury or currently using an Ambulatory Assistive Device (Walker, Cane, Wheelchair, Crutches, etc.)? No PATIENT GENDER DATA: Female. status: : No status: NO. PATIENT RELEVANT IMPLANT DATA REVIEWED: Not Applicable RADIOLOGY DEPARTMENT: Mammography PERIPHERAL IV DATA: Not applicable SIGNED BY: Mercy Corona October 26, 2022 2:26 [facility]12-15-2022 History of Present illness Narrative* Rae Phillips Mammo Tech - 10/26/2022 2:30 PM EST Radiology Service Progress Note PATIENT NAME: Summer Crockett DATE OF SERVICE: October 26, 2022 TIME: 2:26 PM PATIENT IDENTITY VERIFICATION COMPLETED USING TWO (2) IDENTIFIERS: Name and Date of confirmedby patient verbally. FALL SCREENING: Has the patient had 2 falls in the last year or 1 fall with injury or currently using an Ambulatory Assistive Device (Walker, Cane, Wheelchair, Crutches, etc.)? No PATIENT GENDER DATA: Female. status: : No status: NO. PATIENT RELEVANT IMPLANT DATA REVIEWED: Not Applicable RADIOLOGY DEPARTMENT: Mammography PERIPHERAL IV DATA: Not applicable SIGNED BY: Mercy Corona October 26, 2022 2:26 PM documented in [facility]10-[facility]22 NotePap Smear Specimen AdequacyOctober 2021 3:30pmComment.Satisfactory for evaluation. Endocervical and/or squamous metaplasticcells (endocervical component)are present.[employer] INTERFACED A#[id number] Hospital Work Phone: Comment on above:Satisfactory for evaluation. Endocervical and/or squamous metaplasticcells (endocervical component)are present.08-17-2022 NotePap Smear Specimen AdequacyOctober 2021 3:30pm Comment.Satisfactory for evaluation. Endocervical and/or squamous metaplasticcells (endocervical component)are present.[employer] INTERFACED A#[id number] Hospital Work Phone: Comment on above:Satisfactory for evaluation. Endocervical and/or squamous metaplasticcells (endocervical component)are present.Evaluation noteNo assessment information availableParkwood Hospital Work Phone: Evaluation note* Diagnosis Onset Date Resolution Status Acute sinusitis, unspecified acute Contact with or suspected ex posure to other viral communicable disease [facility] Work Phone: Hospital course Narrative No data available for this section [facility] Summary Purpose Family History No Family History Records FoundNo Family History Records Found No data available for this section No Family History Records FoundNo Family History Records Found Advance Directives No Advanced Directives Records FoundNo Advanced Directives Records FoundNo Advanced Directives Records FoundNo Advanced Directives Records Found Chief Complaint and Reason for Visit Chief Complaint PAIN- COPY PCP Chief Complaint PAIN- COPY PCP LUNG CANCER SCREENING Chief Complaint SORE THROAT, CONGEST ED, COUGH PAIN- COPY PCP Reason for Visit Acute sinusitis, uns pecified Contact with or suspected exposure to other viral communicable disease Chief Complaint SORE THROAT, CONGEST ED, COUGH PAIN- COPY PCP PAIN- COPY PCP Reason for Visit Acute sinusitis, uns pecified Contact with or suspected exposure to other viral communicable disease Chief Complaint SORE THROAT, CONGEST ED, COUGH PAIN- COPY PCP PAIN- COPY PCP SCREENING, NICOTINE DEPENDENCE Reason for Visit Acute sinusitis, uns pecified Contact with or suspected exposure to other viral communicable disease Chief Complaint SCREENING, NICOTINE DEPENDENCE PAIN- COPY PCP Additional Source Comments INFORMATION SOURCE (unrecogn ized section and content) DATE CREATED AUTHOR 08/19/2019 [facility] ([place]) DATE CREATED AUTHOR AUTHOR'S ORGANIZ ATION 11/02/2022 [facility] DATE CREATED AUTHOR AUTHOR'S ORGANIZ ATION 10/16/2024 [facility] DATE CREATED AUTHOR AUTHOR'S ORGANIZ ATION 01/01/2025 [facility] Goals (unrecognized section and content) Goals may be documented in a n alternate sectionGoals may be documented in an alternate sectionGoals may be documented in an alternate sectionGoals may be documented in an alternate sectionGoals may be documented in an alternate sectionGoals may be documented in an alternate sectionGoals may be documented in an alternate sectionGoals may be documented in an alternate sectionGoals may be documented in an alternate section No data available for this section Care Teams (unrecognized sec tion and content) Team Status: Active Member Role Status Dates Dr. Cyn Montana MD Family Provider Active Dr. Cyn Montana MD Primary Care Provider Active Team Status: Inactive Member Role Status Dates Dr. Cyn Montana MD Primary Care Provider Active Dr. China Barrow MD Attending Provider, Referring Provider Active [employer] Relationship Specialty Start Date End Date Herminia Denise () [facility] [address] [place] [address] PCP - General 06/19/08 Team Status: Inactive Member Role Status Dates Dr. Cyn Montana MD Primary Care Provider, Referrin g Provider Active Ramses DENIS PA Attending Provider Active Team Status: Inactive Member Role Status Dates Dr. Cyn Montana MD Primary Care Prov ider, Attending Provider, Referring Provider Active [employer] Relationship Specialty Start Date End Date Herminia Denise [facility] [address] [place], [place] [id number] PCP - General 06/19/08 Source Comments (unrecognize d section and content) In the event this informatio n is protected by the Federal Confidentiality of Alcohol and Drug Abuse Patient Records regulations: The Federal rules restrict any use of the information to criminally investigate or prosecute any alcohol or drug abuse patient.[facility] InstituteIn the event this information is protected by the Federal Confidentiality of Alcohol and Drug Abuse Patient Records regulations: The Federal rules restrict any use of the information to criminally investigate or prosecute any alcohol or drug abuse patient.[facility] Reason for Visit (unrecogniz ed section and content) Specialty Diagnoses / Procedures Referred By Contac t Referred To Contact Radiology / [facility] Diagnoses Follow-up exam 3d screen mamm-order scanned into epic Procedures SCREENING MAMMOGRAPHY BI 2-VIEW BREAST INC CAD MAMMOGRAM TOMOGRAM SCREEN Herminia Denise) [facility] [address] [place] [address] Radio Mammo [facility] [address] [place] [address] Referral ID Status Reason Start Date Expiration Date Visits Re quested Visits Authorized [id number] Closed 10/04/2022 11/11/2022 1 1 FOR RECORDS PERTAINING TO PATIENTS WHO ARE OR HAVE BEEN ENROLLED IN A CHEMICAL DEPENDENCY/SUBSTANCEABUSE PROGRAM, SOME INFORMATION MAY BE OMITTED. This clinical summary was aggregated from multiple sources. Caution should be exercised in using it in the provision of clinical care. This summary normalizes information from multiple sources, and as a consequence, information in this document may materially change the coding, format and clinical context of patient data. In addition, data may be omitted in some cases. CLINICAL DECISIONS SHOULD BE BASED ON THE PRIMARY CLINICAL RECORDS. [employer] provides no warranty or guarantee of the accuracy or completeness of information in this document.
[2025-04-19 08:08] LABS: Complement C3 116 mg/dL (82-167)
== END | disposition home or self-care (01) ==
LOC: MTLAB 11:24
PROVIDERS: PCP Family Medicine; Referring Provider Internal Medicine Rheumatology; Visit Provider Internal Medicine Rheumatology
DX: M06.4 Inflammatory polyarthropathy (principal); Z79.899 Other long term (current) drug therapy
CPT/HCPCS: 36415; 80053; 81002; 82570; 84156; 85025; 86160

== ENCOUNTER → 2025-09-08 | Outpatient (CLI) | payer OTHER, SELFPAY | END | disposition home or self-care (01) | PROVIDERS: PCP Family Medicine; Visit Provider Family Medicine | DX: R30.0 Dysuria (principal) | CPT/HCPCS: 87086; 87088 ==

== ENCOUNTER → 2025-10-07 | Outpatient (CLI) | payer OTHER, MEDICARE, SELFPAY ==
[2025-10-07 12:29] LABS: Hematocrit 41.2 % (37-47); Hemoglobin 13.7 g/dL (12.0-15.0); Immature Granulocytes Count 0.030 X10^3/uL (0.0-0.0); Mean Corp Hgb Conc 33.3 g/dL (32-36); Mean Corpuscular Volume 102.0 fL (81-99); Mean Platelet Vol. 14.4 fl (6.2-12.0); NRBC Flagged by Analyzer 0 % (0-5); Platelet Count 175 K/mm3 (150-450); RBC Distribution Width CV 12.5 % (11.6-14.6); RBC Distribution Width SD 46.7 fl (35.1-43.9); Red Blood Count 4.04 M/mm3 (4.2-5.4); White Blood Count 8.6 K/mm3 (4.4-11.0)
[2025-10-07 12:48] LABS: AST(SGOT) 29 U/L (<=31); Alanine Aminotransfer ALT/SGPT 25 U/L (<=34); Albumin, Serum 4.5 g/dL (3.4-4.8); Alkaline Phosphatase 78 U/L (35-104); Anion Gap 10 (5-15); BUN 16 mg/dL (4-19); BUN/Creat Ratio 18.5 RATIO (10-20); Calcium,Total 9.5 mg/dL (7.6-11.0); Carbon Dioxide 25.5 mmol/L (21.0-32.0); Chloride 104 mmol/L (98-108); Globulin 2.7 g/dL (2.2-4.2); Glucose 103 mg/dL (70-99); Potassium 4.3 mmol/L (3.3-5.1)
== END | disposition home or self-care (01) ==
LOC: MTLAB 10:53
PROVIDERS: PCP Family Medicine; Referring Provider Internal Medicine Rheumatology; Visit Provider Internal Medicine Rheumatology
DX: M06.4 Inflammatory polyarthropathy (principal); M32.9 Systemic lupus erythematosus, unspecified; Z79.899 Other long term (current) drug therapy
CPT/HCPCS: 36415; 80053; 85025